=== PATIENT | male | born 1975 | race Two or more races ===

== ENCOUNTER 2023-05-15 12:35 | Observation (INO) | payer OTHER ==
[2023-05-15] MEDS ORDERED: DIPH,PERTUS(ACELL)TETVAC-LF 0.5 ML VIAL IM ONE (12:36)
[2023-05-15] MEDS ORDERED: SODIUM CHLORIDE 0.9% 500 ML 500 ML IV ONE (12:37)
[2023-05-15] MEDS ORDERED: SODIUM CHLORIDE 0.9% 1,000 ML IV ONE (12:37)
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
--- NOTE | 2023-05-15 13:12 | XR ---
Left hand HISTORY: Trauma COMPARISON: None TECHNIQUE: 3 views left hand were obtained FINDINGS: There is no fracture, dislocation, intraosseous, intra-articular or soft tissue abnormality. IMPRESSION: No significant abnormality seen.
[2023-05-15 13:34] LABS: Basophils % (A) 0 %; Eosinophils # (A) 0.1 k/uL (0-0.7); Eosinophils % (A) 1 %; HCT 42.9 % (39.0-53.0); HGB 14.4 gm/dL (13.0-17.5); Lymphocytes # (A) 1.1 k/uL (1.0-4.8); Lymphocytes % (A) 9 %; MCH 32.8 pg (25.0-35.0); MCHC 33.5 g/dL (31.0-37.0); MCV 97.9 fL (80.0-100.0); Mean Platelet Volume 8.1; Monocytes # (A) 0.6 k/uL (0-1.0); Monocytes % (A) 5 %; Neutrophils # (A) 9.3 k/uL (1.3-7.7); Neutrophils % (A) 83 %; Platelet Count 213 k/uL (150-450); RBC 4.38 m/uL (4.30-5.90); RDW 14.5 % (11.5-15.5); WBC 11.1 k/uL (3.8-10.6)
[2023-05-15 14:08] LABS: ALT 65 U/L (4-49); AST 400 U/L (17-59); African American GFR (CKD) >90 (>60 ml/min/1.73 sqM); Albumin 4.4 g/dL (3.5-5.0); Alkaline Phosphatase 77 U/L (38-126); Anion Gap 13 mmol/L; Blood Urea Nitrogen 14 mg/dL (9-20); Carbon Dioxide 26 mmol/L (22-30); Chloride 103 mmol/L (98-107); Glucose 83 mg/dL (74-99); Magnesium 1.9 mg/dL (1.6-2.3); Non-African American GFR(CKD) >90 (>60 ml/min/1.73 sqM); Potassium 4.4 mmol/L (3.5-5.1); Sodium 142 mmol/L (137-145); Total Bilirubin 0.5 mg/dL (0.2-1.3); Total Protein 6.9 g/dL (6.3-8.2)
[2023-05-15 14:18] LABS: Alcohol 354 mg/dL
[2023-05-15] MEDS ORDERED: THIAMINE 100 MG/ML 2 ML VIAL IM STA (14:38)
[2023-05-15] MEDS ORDERED: LORazepam 2 MG/ML INJ IV PRN ×3 (14:38)
[2023-05-15] MEDS ORDERED: LORazepam 0.5 MG TAB PO PRN (14:38)
[2023-05-15] MEDS: SODIUM CHLORIDE 0.9% 1,000 ML IV ONE ×2 (14:45→22:08)
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
[2023-05-16 02:24] LABS: Hepatitis A Antibody IgM Nonreactive; Hepatitis B Core IgM Nonreactive; Hepatitis B Surface Antigen Nonreactive; Hepatitis C IgG Antibody Nonreactive
[2023-05-16 08:00] LABS: Basophils % (A) 0 %; Eosinophils % (A) 0 %; HCT 39.8 % (39.0-53.0); HGB 13.3 gm/dL (13.0-17.5); Lymphocytes # (A) 0.7 k/uL (1.0-4.8); Lymphocytes % (A) 9 %; MCH 32.9 pg (25.0-35.0); MCHC 33.3 g/dL (31.0-37.0); Mean Platelet Volume 8.1; Monocytes # (A) 0.4 k/uL (0-1.0); Monocytes % (A) 5 %; Neutrophils # (A) 6.9 k/uL (1.3-7.7); Neutrophils % (A) 84 %; Platelet Count 169 k/uL (150-450); RBC 4.02 m/uL (4.30-5.90); WBC 8.2 k/uL (3.8-10.6)
[2023-05-16 08:13] VITALS: BP 177/92; PULSE 68; RESP 16; TEMP 98.7
[2023-05-16] MEDS ORDERED: THIAMINE 100 MG TAB PO SCH (09:00)
[2023-05-16] MEDS ORDERED: ENOXAPARIN 40 MG/0.4 ML SYRINGE SQ SCH (09:00)
--- NOTE | 2023-05-16 11:12 | P.DS ---
Providers Date of admission: 05/15/23 14:38 Expected date of discharge: 05/16/23 Attending physician: Héctor Diaz MD Primary care physician: Stated None Hospital Course: Discharge Diagnosis: Acute alcohol intoxication Impending alcohol withdrawal Alcohol dependence Transaminitis Leukocytosis Nicotine dependence Homelessness Hospital Course: 48-year-old male with history of alcohol dependence, nicotine dependence presen ting with acute alcohol intoxication. In the ED, temperature was 97.8, pulse 77, respiratory rate 18, blood pressure 140/99, saturating at 93% on room air. Head x-ray does not show any abnormalities. WBC 11.1, creatinine 0.66, AST 400, ALT 65, alcohol level 354. Started on IV fluids in the ED. patient feels better at the time of discharge. Would consider outpatient rehab. Patient seen and examined at bedside. Vital signs reviewed and stable. General: nontoxic, no distress, appears at stated age Derm: warm, dry Head: atraumatic, normocephalic, symmetric Eyes: EOMI, no lid lag, anicteric sclera Mouth: no lip lesion, mucus membranes moist Cardiovascular: S1S2 reg, no murmur Lungs: CTA bilateral, no rhonchi, no rales , no accessory muscle use Abdominal: soft, nontender to palpation, no guarding, no appreciable organomegaly Ext: no gross muscle atrophy, no edema, no contractures Neuro: CN II-XI grossly intact, no focal neuro deficits Psych: Alert, oriented, appropriate affect A total of 33 minutes of time were spent preparing this complex discharge summary. Patient was discharged on 05/16/23 at 10:31. Patient Condition at Discharge: Stable Plan - Discharge Summary Discharge Rx Participant: Yes New Discharge Prescriptions: New Thiamine [Vitamin B-1] 100 mg PO DAILY #60 tab Discharge Medication List Thiamine [Vitamin B-1] 100 mg PO DAILY #60 tab 05/16/23 [Rx] Follow up Appointment(s)/Referral(s): None,Stated [Primary Care Provider] - 1-2 days Patient Instructions/Handouts: Alcohol Intoxication (DC), Abuse of Alcohol (DC), Alcohol Use Disorder (DC) Activity/Diet/Wound Care/Special Instructions: Please see a PCP. Discharge/Stand Alone Forms: AA Meetings [facility] - [facility], AA Meetings [facility], [facility], Outpatient Counseling, Inp Substance Abuse Facilities, Area PCPs Discharge Disposition: HOME SELF-CARE
== END 2023-05-16 13:55 | disposition home or self-care (01) ==
LOC: EC 12:35 → 6NMEDSUR 14:38 → 4SSUR 14:53
PROVIDERS: ADMIT Student in an Organized Health Care Education/Training Program; ATTEND Student in an Organized Health Care Education/Training Program
DX: F10.229 Alcohol dependence with intoxication, unspecified (principal); S01.511A Laceration without foreign body of lip, initial encounter; S60.222A Contusion of left hand, initial encounter; I48.91 Unspecified atrial fibrillation; F17.210 Nicotine dependence, cigarettes, uncomplicated; Z59.00 Homelessness unspecified; Y90.8 Blood alcohol level of 240 mg/100 ml or more; R74.01 Elevation of levels of liver transaminase levels; D72.829 Elevated white blood cell count, unspecified; Z71.6 Tobacco abuse counseling; Z98.890 Other specified postprocedural states; Y04.0XXA Assault by unarmed brawl or fight, initial encounter
CPT/HCPCS: 96372 ×2; 90471; 96360; 96361; 99285; 36415; 80053; 80074; 83735; 85025 ×2; 80320; 73130; 90715; G0378 ×2; J3411; J1650

== ENCOUNTER 2023-05-17 03:17 | Observation (INO) | payer OTHER ==
[2023-05-17] MEDS ORDERED: LORazepam 1 MG TAB PO STA (04:43)
[2023-05-17 05:02] LABS: Basophils % (A) 1 %; Eosinophils # (A) 0.1 k/uL (0-0.7); Eosinophils % (A) 1 %; HGB 13.9 gm/dL (13.0-17.5); Lymphocytes # (A) 0.9 k/uL (1.0-4.8); Lymphocytes % (A) 11 %; MCH 34.4 pg (25.0-35.0); MCHC 34.7 g/dL (31.0-37.0); MCV 99.1 fL (80.0-100.0); Mean Platelet Volume 8.4; Monocytes # (A) 0.5 k/uL (0-1.0); Monocytes % (A) 6 %; Neutrophils # (A) 6.4 k/uL (1.3-7.7); Neutrophils % (A) 81 %; Platelet Count 158 k/uL (150-450); RBC 4.04 m/uL (4.30-5.90)
[2023-05-17 05:13] LABS: ALT 60 U/L (4-49); AST 191 U/L (17-59); African American GFR (CKD) >90 (>60 ml/min/1.73 sqM); Albumin 4.1 g/dL (3.5-5.0); Alkaline Phosphatase 62 U/L (38-126); Amylase 62 U/L (30-110); Anion Gap 9 mmol/L; Blood Urea Nitrogen 13 mg/dL (9-20); Calcium 9.4 mg/dL (8.4-10.2); Carbon Dioxide 28 mmol/L (22-30); Chloride 97 mmol/L (98-107); Glucose 114 mg/dL (74-99); Lipase 84 U/L (23-300); Magnesium 1.8 mg/dL (1.6-2.3); Non-African American GFR(CKD) >90 (>60 ml/min/1.73 sqM); Potassium 3.3 mmol/L (3.5-5.1); Sodium 134 mmol/L (137-145); Total Bilirubin 1.4 mg/dL (0.2-1.3); Total Protein 6.6 g/dL (6.3-8.2)
[2023-05-17 05:16] LABS: INR 0.9 (<1.2); Partial Thromboplastin Time 25.1 sec (22.0-30.0); Prothrombin Time 10.5 sec (10.0-12.5)
--- NOTE | 2023-05-17 06:19 | ED ---
General Adult HPI - General Chief complaint: Alcohol Stated complaint: Chest pain Time Seen by Provider: 05/17/23 04:07 Source: patient Mode of arrival: ambulatory Limitations: no limitations - History of Present Illness Initial comments: This patient is 48-year-old man presenting to have evaluation for chest pain that come on approximate 6 hours previously. He indicates the left substernal. He states it is cramping. He has not noted worsening or relieving factors. No accompanying symptoms. Onset/Timin -: hour(s) Location: chest Radiation: non-radiation Quality: other (Cramping) Consistency: constant Improves with: none Worsens with: none Associated Symptoms: denies other symptoms Treatments Prior to Arrival: none - Related Data Previous Rx's Medication Instructions Recorded Thiamine [Vitamin B-1] 100 mg PO DAILY #60 tab 05/16/23 Allergies Allergy/AdvReac Type Severity Reaction Status Date / Time No Known Allergies Allergy Verified 05/15/23 14:12 Review of Systems ROS Statement: Those systems with pertinent positive or pertinent negative responses have been documented in the HPI. ROS Other: All systems not noted in ROS Statement are negative. Constitutional: Denies: fever, chills Respiratory: Denies: cough, dyspnea Cardiovascular: Reports: chest pain. Denies: palpitations, orthopnea, edema, syncope Gastrointestinal: Denies: abdominal pain, nausea, vomiting Genitourinary: Denies: dysuria, hematuria Musculoskeletal: Denies: back pain Skin: Denies: rash Neurological: Denies: headache, weakness Past Medical History Past Medical History: Atrial Fibrillation History of Any Multi-Drug Resistant Organisms: None Reported Past Surgical History: Hernia Repair Past Anesthesia/Blood Transfusion Reactions: No Reported Reaction Past Psychological History: No Psychological Hx Reported Smoking Status: Current every day smoker Past Alcohol Use History: Daily Past Drug Use History: None Reported - Past Family History Father Family Medical History: Diabetes Mellitus Additional Family Medical History / Comment(s): of a heart of attack General Exam Limitations: no limitations General appearance: alert, in no apparent distress Head exam: Present: atraumatic, normocephalic Eye exam: Present: normal appearance. Absent: scleral icterus, conjunctival injection Neck exam: Present: normal inspection Respiratory exam: Present: wheezes (Mild expiratory wheeze). Absent: respiratory distress, rales, rhonchi, stridor, accessory muscle use Cardiovascular Exam: Present: regular rate, normal rhythm, normal heart sounds. Absent: systolic murmur, diastolic murmur, rubs, gallop GI/Abdominal exam: Present: soft. Absent: distended, tenderness, guarding, rebound, rigid, mass Extremities exam: Present: normal inspection, normal capillary refill. Absent: pedal edema, calf tenderness Back exam: Present: normal inspection. Absent: CVA tenderness (R), CVA tenderness (L) Neurological exam: Present: alert Skin exam: Present: warm, dry, intact, normal color. Absent: rash Course Vital Signs 05/17/23 05/17/23 05/17/23 03:19 03:48 04:00 Temperature 98.7 F Pulse Rate 58 L 57 L 64 Respiratory 16 18 16 Rate Blood Pressure 149/93 143/94 O2 Sat by Pulse 96 99 98 Oximetry 05/17/23 05/17/23 05:00 06:00 Temperature Pulse Rate 77 57 L Respiratory 14 14 Rate Blood Pressure 138/86 O2 Sat by Pulse 98 99 Oximetry EKG Findings - EKG Results: EKG: sinus rhythm (With sinus arrhythmia), normal axis EKG shows: bradycardia (Rate 57 bpm) - Blocks, [place], Hypertrophy, ST Abn: AV and intraventricular conduction: intraventricular conduction delay Medical Decision Making - Lab Data Result diagrams: 05/17/23 04:49 05/17/23 04:49 Lab Results 05/17/23 05/17/23 05/17/23 Range/Units 04:49 04:49 04:49 WBC 8.0 (3.8-10.6) k/uL RBC 4.04 L (4.30-5.90) m/uL Hgb 13.9 (13.0-17.5) gm/dL Hct 40.0 (39.0-53.0) % MCV 99.1 (80.0-100.0) fL MCH 34.4 (25.0-35.0) pg MCHC 34.7 (31.0-37.0) g/dL RDW 14.0 (11.5-15.5) % Plt Count 158 (150-450) k/uL MPV 8.4 Neutrophils % 81 % Lymphocytes % 11 % Monocytes % 6 % Eosinophils % 1 % Basophils % 1 % Neutrophils # 6.4 (1.3-7.7) k/uL Lymphocytes # 0.9 L (1.0-4.8) k/uL Monocytes # 0.5 (0-1.0) k/uL Eosinophils # 0.1 (0-0.7) k/uL Basophils # 0.0 (0-0.2) k/uL PT 10.5 (10.0-12.5) sec INR 0.9 (<1.2) APTT 25.1 (22.0-30.0) sec Sodium 134 L (137-145) mmol/L Potassium 3.3 L (3.5-5.1) mmol/L Chloride 97 L (98-107) mmol/L Carbon Dioxide 28 (22-30) mmol/L Anion Gap 9 mmol/L BUN 13 (9-20) mg/dL Creatinine 0.61 L (0.66-1.25) mg/dL Est GFR (CKD-EPI)AfAm >90 (>60 ml/min/1.73 sqM) Est GFR (CKD-EPI)NonAf >90 (>60 ml/min/1.73 sqM) Glucose 114 H (74-99) mg/dL Calcium 9.4 (8.4-10.2) mg/dL Magnesium 1.8 (1.6-2.3) mg/dL Total Bilirubin 1.4 H (0.2-1.3) mg/dL AST 191 H (17-59) U/L ALT 60 H (4-49) U/L Alkaline Phosphatase 62 (38-126) U/L Troponin I (0.000-0.034) ng/mL Total Protein 6.6 (6.3-8.2) g/dL Albumin 4.1 (3.5-5.0) g/dL Amylase 62 (30-110) U/L Lipase 84 (23-300) U/L 05/17/23 Range/Units 04:49 WBC (3.8-10.6) k/uL RBC (4.30-5.90) m/uL Hgb (13.0-17.5) gm/dL Hct (39.0-53.0) % MCV (80.0-100.0) fL MCH (25.0-35.0) pg MCHC (31.0-37.0) g/dL RDW (11.5-15.5) % Plt Count (150-450) k/uL MPV Neutrophils % % Lymphocytes % % Monocytes % % Eosinophils % % Basophils % % Neutrophils # (1.3-7.7) k/uL Lymphocytes # (1.0-4.8) k/uL Monocytes # (0-1.0) k/uL Eosinophils # (0-0.7) k/uL Basophils # (0-0.2) k/uL PT (10.0-12.5) sec INR (<1.2) APTT (22.0-30.0) sec Sodium (137-145) mmol/L Potassium (3.5-5.1) mmol/L Chloride (98-107) mmol/L Carbon Dioxide (22-30) mmol/L Anion Gap mmol/L BUN (9-20) mg/dL Creatinine (0.66-1.25) mg/dL Est GFR (CKD-EPI)AfAm (>60 ml/min/1.73 sqM) Est GFR (CKD-EPI)NonAf (>60 ml/min/1.73 sqM) Glucose (74-99) mg/dL Calcium (8.4-10.2) mg/dL Magnesium (1.6-2.3) mg/dL Total Bilirubin (0.2-1.3) mg/dL AST (17-59) U/L ALT (4-49) U/L Alkaline Phosphatase (38-126) U/L Troponin I <0.012 (0.000-0.034) ng/mL Total Protein (6.3-8.2) g/dL Albumin (3.5-5.0) g/dL Amylase (30-110) U/L Lipase (23-300) U/L Disposition Referrals: None,Stated [Primary Care Provider] - 1-2 days
[2023-05-17] MEDS ORDERED: NITROGLYCERIN SL TABS 0.4 MG TAB SUBLINGUAL PRN (06:28)
[2023-05-17] MEDS ORDERED: LORazepam 2 MG/ML INJ IV PRN ×3 (06:38)
[2023-05-17] MEDS ORDERED: chlordiazePOXIDE 25 MG CAP PO PRN (06:38)
--- NOTE | 2023-05-17 06:47 | XR ---
EXAMINATION TYPE: XR chest 1V portable DATE OF EXAM: 05/17/2023 5:01 AM COMPARISON: Chest radiographs from 04/18/2023 TECHNIQUE: XR chest 1V portable Portable AP radiograph of the chest. CLINICAL INDICATION:Male, 48 years old with history of chest pain; FINDINGS: Lungs/Pleura: There is no evidence of pleural effusion, focal consolidation, or pneumothorax. Pulmonary vascularity: Unremarkable. Heart/mediastinum: Cardiomediastinal silhouette is unremarkable. Musculoskeletal: No acute osseous pathology. IMPRESSION: No acute cardiopulmonary disease/process.
--- NOTE | 2023-05-17 10:45 | CONS ---
CONSULTATION HISTORY OF PRESENT ILLNESS: Anil is a 48-year-old gentleman with no significant past medical history, who presented to hospital complaining of chest pain. He describes it as a sharp precordial chest pain without definite radiation to neck, arm, or back. 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 He has had 2 sets of troponins that are both within normal limits. He had an EKG that revealed sinus bradycardia without significant ST-T wave changes. At the time of my evaluation, he is chest pain-free, hemodynamically stable, and in no apparent distress. There is no prior history of coronary artery disease or congestive heart failure. PAST MEDICAL HISTORY: Unremarkable. MEDICATIONS: None. ALLERGIES: None. FAMILY HISTORY: Negative for premature coronary artery disease. SOCIAL HISTORY: Significant for smoking and EtOH abuse. There is no history of drug abuse. PHYSICAL EXAMINATION: GENERAL: The patient is comfortable at rest. VITAL SIGNS: Stable. NECK: There is no jugular venous distention. Carotid upstroke is normal. There is no bruit. CHEST: Reveals good air entry bilaterally. HEART: Reveals first and second heart sounds. No gallop. No murmur. No rub. ABDOMEN: Soft and nontender. EXTREMITIES: Did not reveal any edema. Peripheral pulses are felt. LABORATORY DATA: Show a hemoglobin of 13.9, platelet count is 158. Creatinine is 0.6. Troponin is normal. ASSESSMENT: 1. Atypical chest pain. 2. EtOH abuse with possible alcohol withdrawal. PLAN: I will obtain a 2D echo on him tomorrow to assess his LV function and wall motion and schedule him for a dobutamine stress echo. Obviously, stress test will not be done if the patient goes through alcohol withdrawal. MMODL / IJN: [id number] /
[2023-05-17] MEDS ORDERED: POTASSIUM CHLORIDE ER 20 MEQ TAB.ER PO STA (11:01)
--- NOTE | 2023-05-17 11:04 | P.HPIM ---
History of Present Illness H&P Date: 05/17/23 Patient is a 48-year-old male with history of alcohol dependence, nicotine dependence, homelessness presenting with chest pain. Patient was recently admitted for alcohol intoxication, discharged yesterday. He claims that this morning he came back to the hospital because he was having left-sided chest pain nonradiating, not associated with any nausea, vomiting, diaphoresis, shortness of breath, palpitations. He denies having any abdominal pain. He denies any urinary or bowel complaints. He denies drinking any more alcohol. In the ED, temperature was 98.7, pulse 58, blood pressure 149/93, respiratory rate 16, saturating at 96% on room air. WBC 8, potassium 3.3, creatinine 0.61, total bilirubin 1.4, elevated AST and ALT, troponin negative and 0.023. Serum alcohol negative. EKG independently interpreted shows nonspecific ST-T wave changes in inferior leads. Chest x-ray shows no acute process. Patient admitted for observation for chest pain and impending alcohol withdrawal. Cardiology consulted Pertinent positives and negatives as discussed in HPI, a complete review of systems was performed and all other systems are negative. Patient seen and examined at bedside. Vital signs reviewed General: nontoxic, no distress, appears at stated age Derm: warm, dry Head: atraumatic, normocephalic, symmetric Eyes: EOMI, no lid lag, anicteric sclera, pupils equal round reactive to light ENT: Nose and ears atraumatic Neck: No thyromegaly, supple Mouth: no lip lesion, mucus membranes moist Cardiovascular: S1S2 reg, no murmur, no edema Lungs: clear to auscultation bilateral, no rhonchi, no rales, no wheeze, no accessory muscle use Abdominal: soft, nontender to palpation, no guarding, no appreciable organomegaly Ext: no gross muscle atrophy, muscle strength muscle strength 5 out of 5 in all 4 extremities, no contractures Neuro: CN II-XII grossly intact Psych: Alert, oriented, appropriate affect Assessment/Plan: Impending alcohol withdrawal Alcohol dependence Nicotine dependence Hypokalemia Transaminitis Hyperbilirubinemia Chest pain, rule out ACS -On oral thiamine -IV Ativan as needed based on CIWA score -40 mEq oral potassium daily -Repeat CMP tomorrow -Counseled regarding smoking cessation -Acute hepatitis panel yesterday was negative, right upper quadrant ultrasound ordered -Continue aspirin 81 mg daily -Cardiology note reviewed, pending stress test and echocardiogram -Continue telemetry, trend troponin The patient is admitted with an anticipated less than 2 midnight stay as observation status for evaluation of chest pain. Surrogate decision-maker: Sibling CODE STATUS: Full code DVT prophylaxis: Subcu heparin Anticipated discharge date: Pending clinical course Anticipated discharge place: Pending clinical course A total of 55 minutes was spent on the care of this complex patient more than 50% of the time was spent in counseling and care coordination. Past Medical History Past Medical History: Atrial Fibrillation History of Any Multi-Drug Resistant Organisms: None Reported Past Surgical History: Hernia Repair Past Anesthesia/Blood Transfusion Reactions: No Reported Reaction Past Psychological History: No Psychological Hx Reported Smoking Status: Current every day smoker Past Alcohol Use History: Daily Additional Past Alcohol Use History / Comment(s): Start smoking at the age of 14. Drinks a pint to 1/5 a day Past Drug Use History: None Reported - Past Family History Father Family Medical History: Diabetes Mellitus Additional Family Medical History / Comment(s): of a heart of attack Medications and Allergies Home Medications Medication Instructions Recorded Confirmed Type Thiamine [Vitamin B-1] 100 mg PO DAILY #60 tab 05/16/23 Rx Allergies Allergy/AdvReac Type Severity Reaction Status Date / Time No Known Allergies Allergy Verified 05/15/23 14:12 Physical Exam Vitals: Vital Signs Temp Pulse Pulse Resp BP BP Pulse Ox 05/17/23 08:00 98.2 F 80 18 130/74 97 05/17/23 06:28 97 05/17/23 06:00 57 L 14 138/86 99 05/17/23 05:00 77 14 98 05/17/23 04:00 64 16 143/94 98 05/17/23 03:48 57 L 18 99 05/17/23 03:19 98.7 F 58 L 16 149/93 96 Intake and Output 05/16/23 05/17/23 05/17/23 22:59 06:59 14:59 Intake Total 120 Balance 120 Intake: Oral 120 Other: # Voids 0 # Bowel Movements 0 Weight 56.699 kg Results CBC & Chem 7: 05/17/23 04:49 05/17/23 04:49 Labs: Abnormal Lab Results - Last 24 Hours (Table) 05/17/23 05/17/23 Range/Units 04:49 04:49 RBC 4.04 L (4.30-5.90) m/uL Lymphocytes # 0.9 L (1.0-4.8) k/uL Sodium 134 L (137-145) mmol/L Potassium 3.3 L (3.5-5.1) mmol/L Chloride 97 L (98-107) mmol/L Creatinine 0.61 L (0.66-1.25) mg/dL Glucose 114 H (74-99) mg/dL Total Bilirubin 1.4 H (0.2-1.3) mg/dL AST 191 H (17-59) U/L ALT 60 H (4-49) U/L Thrombosis Risk Factor Assmnt - Choose All That Apply Each Factor Represents 1 point: Age 41-60 years Thrombosis Risk Factor Assessment Total Risk Factor Score: 1 Thrombosis Risk Factor Assessment Level: Low Risk
--- NOTE | 2023-05-17 12:23 | US ---
EXAMINATION TYPE: US abdomen limited DATE OF EXAM: 05/17/2023 COMPARISON: NONE CLINICAL INDICATION: Male, 48 years old with history of RUQ; ETOH abuse TECHNIQUE: Multiple sonographic images of the right upper quadrant are obtained. FINDINGS: EXAM MEASUREMENTS: Liver Length: 15.9 cm Gallbladder Wall: 0.3 cm CBD: 0.3 cm Right Kidney: 11.1 x 4.5 x 6.3 cm Pancreas: wnl, tail obscured by overlying bowel gas Liver: Left lobe appeared enlarged Gallbladder: Somewhat contracted, possible small polyps anterior wall Evidence for sonographic Bustillos's sign: No CBD: wnl Right Kidney: wnl IMPRESSION: 1. No evidence for acute process 2. Contracted gallbladder with possible polyp versus adherent gallstone. 3.
[2023-05-17] MEDS: HEPARIN SODIUM,PORCINE 5,000 UNIT/ML 1 ML VIAL SQ SCH ×2 (17:19→23:49)
[2023-05-18] MEDS ORDERED: DOBUTamine DRIP for NUC MED 500 MG in DEXTROSE/WATER 1 250ML.BAG IV PRN (07:00)
[2023-05-18] MEDS ORDERED: ASPIRIN 325 MG TAB PO SCH (09:00)
[2023-05-18] MEDS: HEPARIN SODIUM,PORCINE 5,000 UNIT/ML 1 ML VIAL SQ SCH ×3 (09:13→23:38)
[2023-05-18] MEDS: ASPIRIN 81 MG PO SCH (09:13)
[2023-05-18] MEDS: THIAMINE 100 MG TAB PO SCH (09:13)
[2023-05-18 10:51] LABS: Basophils % (A) 0 %; Eosinophils # (A) 0.2 k/uL (0-0.7); Eosinophils % (A) 2 %; HCT 43.7 % (39.0-53.0); HGB 14.1 gm/dL (13.0-17.5); Lymphocytes % (A) 14 %; MCH 32.6 pg (25.0-35.0); MCHC 32.4 g/dL (31.0-37.0); MCV 100.8 fL (80.0-100.0); Macrocytosis Slight; Mean Platelet Volume 8.3; Monocytes # (A) 0.5 k/uL (0-1.0); Monocytes % (A) 7 %; Neutrophils # (A) 5.7 k/uL (1.3-7.7); Neutrophils % (A) 75 %; Platelet Count 174 k/uL (150-450); RBC 4.33 m/uL (4.30-5.90); RDW 13.7 % (11.5-15.5); WBC 7.6 k/uL (3.8-10.6)
[2023-05-18 11:03] VITALS: BMI 20.7
[2023-05-18 11:08] LABS: ALT 42 U/L (4-49); AST 64 U/L (17-59); African American GFR (CKD) >90 (>60 ml/min/1.73 sqM); Albumin 3.9 g/dL (3.5-5.0); Alkaline Phosphatase 63 U/L (38-126); Anion Gap 9 mmol/L; Blood Urea Nitrogen 17 mg/dL (9-20); Calcium 9.5 mg/dL (8.4-10.2); Carbon Dioxide 28 mmol/L (22-30); Chloride 100 mmol/L (98-107); Glucose 150 mg/dL (74-99); Magnesium 1.7 mg/dL (1.6-2.3); Non-African American GFR(CKD) >90 (>60 ml/min/1.73 sqM); Potassium 4.3 mmol/L (3.5-5.1); Sodium 137 mmol/L (137-145); Total Protein 6.6 g/dL (6.3-8.2)
--- NOTE | 2023-05-18 11:55 | P.PN ---
Subjective HISTORY OF PRESENT ILLNESS: This is a 48-year-old male who was admitted to the hospital secondary to chest pain. Patient has a history of alcohol abuse. Patient examined this morning at the bedside. Patient reports he has been having some chest pain on and off since been admitted to the hospital. At the time of examination, he denies any chest pain or pressure. He denies any shortness of breath. Vital signs are stable. It is noted that the patient had an echocardiogram performed last month revealing ejection fraction 45-50% with hypokinesis of inferior and inferior septal wall. Akinesis of basal inferior wall. PHYSICAL EXAM: VITAL SIGNS: Reviewed. GENERAL: Well-developed in no acute distress. NECK: Supple. No JVD or thyromegaly LUNGS: Respirations even and unlabored. Lungs essentially clear to auscultation bilaterally. HEART: Regular rate and rhythm. S1 and S2 heard. EXTREMITIES: Normal range of motion. No clubbing or cyanosis. Peripheral pulses intact. No lower extremity edema ASSESSMENT: Chest pain, troponins negative 3 Alcohol abuse Mild cardiomyopathy with wall motion abnormalities, ischemic versus nonischemic Questionable history of atrial fibrillation Nicotine dependence Elevated LFTs, improved PLAN: Continue current cardiac medications Add atorvastatin 40 mg at night Cancel dobutamine stress test scheduled for today Repeat echocardiogram. If wall motion abnormalities persist, patient will undergo cardiac catheterization tomorrow with Dr. Murray Further recommendations pending patient's course Nurse practitioner note has been reviewed by physician. Signing provider agrees with the documented findings, assessment, and plan of care. Objective - Vital Signs Vital signs: Vital Signs Temp 98.1 F 05/18/23 08:00 Pulse 85 05/18/23 08:00 Resp 18 05/18/23 08:00 BP 131/89 05/18/23 08:00 Pulse Ox 98 05/18/23 08:00 FiO2 Intake & Output 05/17/23 05/18/23 05/18/23 18:59 06:59 18:59 Intake Total 480 118 Balance 480 118 Weight 56.699 kg Intake: Oral 480 118 Other: # Voids 0 2 # Bowel Movements 0 0 - Labs CBC & Chem 7: 05/18/23 10:20 05/18/23 10:20 Labs: Abnormal Lab Results - Last 24 Hours (Table) 05/18/23 05/18/23 Range/Units 10:20 10:20 MCV 100.8 H (80.0-100.0) fL Glucose 150 H (74-99) mg/dL AST 64 H (17-59) U/L
--- NOTE | 2023-05-18 12:04 | P.PN ---
Subjective Progress Note Date: 05/18/23 Hospital Course: 48-year-old male with history of alcohol dependence, nicotine dependence, homelessness presenting with chest pain. In the ED, temperature was 98.7, pulse 58, blood pressure 149/93, respiratory rate 16, saturating at 96% on room air. WBC 8, potassium 3.3, creatinine 0.61, total bilirubin 1.4, elevated AST and ALT, troponin negative and 0.023. Serum alcohol negative. EKG independently interpreted shows nonspecific ST-T wave changes in inferior leads. Chest x-ray shows no acute process. Patient admitted for observation for chest pain and impending alcohol withdrawal. Cardiology consulted. Pending echocardiogram, may need cardiac cath. Subjective: Seen and examined at bedside. No acute events overnight. Denies any chest pain. Pertinent positives and negatives as discussed above, a complete review of systems was performed and all other systems are negative. Vitals Signs Reviewed. General: nontoxic, no distress, appears at stated age Derm: warm, dry Head: atraumatic, normocephalic, symmetric Eyes: EOMI, no lid lag, anicteric sclera, pupils equal round reactive to light ENT: Nose and ears atraumatic Neck: No thyromegaly, supple Mouth: no lip lesion, mucus membranes moist Cardiovascular: S1S2 reg, no murmur, no edema Lungs: clear to auscultation bilateral, no rhonchi, no rales, no wheeze, no accessory muscle use Abdominal: soft, nontender to palpation, no guarding, no appreciable organomegaly Ext: no gross muscle atrophy, muscle strength muscle strength 5 out of 5 in all 4 extremities, no contractures Neuro: CN II-XII grossly intact Psych: Alert, oriented, appropriate affect Data Reviewed Today: Pertinent Labs: WBC 7.6, hemoglobin 14.1, potassium 4.3, sodium 137, creatinine 0.74, AST 64, ALT 42, ALP 63 Imaging: Abdominal ultrasound shows left lobe liver enlarged, no evidence of acute process, CBD within normal limits, contracted gallbladder with possible polyp versus edema and gallstone. Assessment and Plan: Impending alcohol withdrawal Alcohol dependence Nicotine dependence Hypokalemia, resolved Transaminitis, resolving Hyperbilirubinemia, resolved Chest pain, ACS ruled out Mild cardiomyopathy with wall motion abnormalities, ischemic versus nonischemic -On oral thiamine -IV Ativan as needed based on CIWA score -Counseled regarding smoking cessation -Continue aspirin 81 mg daily -Also started on atorvastatin 40 mg -Cardiology note reviewed, echocardiogram and then possible catheterization -Continue telemetry DVT ppx: Heparin Code status: Full code Anticipated discharge place: pending clinical course Anticipated discharge time: pending clinical course Objective - Vital Signs Vital signs: Vital Signs Temp 98.1 F 05/18/23 08:00 Pulse 85 05/18/23 08:00 Resp 18 05/18/23 08:00 BP 131/89 05/18/23 08:00 Pulse Ox 98 05/18/23 08:00 FiO2 Intake & Output 05/17/23 05/18/23 05/18/23 18:59 06:59 18:59 Intake Total 480 118 Balance 480 118 Weight 56.699 kg Intake: Oral 480 118 Other: # Voids 0 2 # Bowel Movements 0 0 - Labs CBC & Chem 7: 05/18/23 10:20 05/18/23 10:20 Labs: Abnormal Lab Results - Last 24 Hours (Table) 05/18/23 05/18/23 Range/Units 10:20 10:20 MCV 100.8 H (80.0-100.0) fL Glucose 150 H (74-99) mg/dL AST 64 H (17-59) U/L
[2023-05-18 18:22] LABS: Chol/HDL Ratio 2.55 Ratio; LDL Cholesterol,Calculated 117.3 mg/dL (0.0-131.0)
[2023-05-18] MEDS: ATORVASTATIN 40 MG TAB PO SCH (20:51)
[2023-05-19] MEDS: THIAMINE 100 MG TAB PO SCH (06:06)
[2023-05-19] MEDS: ASPIRIN 81 MG PO SCH (06:06)
--- NOTE | 2023-05-19 06:59 | CA ---
Transthoracic Echo Report Name: Anil Zimmerman Age: 48 Gender: M : 1975 Exam Date: 05/18/2023 15:33 Exam Location: [facility] Ht (in): 65 Wt (lb): 125 Ordering Physician: Jose G Murray MD ([id number]) Attending/Referring Phys: Trevor REESE Vice President Of [employer] Martha Young [facility] Procedure CPT: Indications: CP Cardiac Hx: Technical Quality: Fair Contrast 1: Total Dose (mL): Contrast 2: Total Dose (mL): MEASUREMENTS (Male / Female) Normal Values 2D ECHO LV Diastolic Diameter PLAX 4.3 cm 4.2 - 5.9 / 3.9 - 5.3 cm LV Systolic Diameter PLAX 3.1 cm IVS Diastolic Thickness 1.0 cm 0.6 - 1.0 / 0.6 - 0.9 cm LVPW Diastolic Thickness 1.1 cm 0.6 - 1.0 / 0.6 - 0.9 cm LV Relative Wall Thickness 0.5 LV Diastolic Volume MOD BP 99.5 cm??? 67 - 155 / 56 - 104 cm??? LV Systolic Volume MOD BP 53.6 cm??? 22 - 58 / 19 - 49 cm??? LV Ejection Fraction MOD BP 46.2 % >= 55 % LV Cardiac Index MOD BP 1854.1 cm???/min???m??? LV Diastolic Volume MOD 4C 98.2 cm??? LV Systolic Volume MOD 4C 51.2 cm??? LV Ejection Fraction MOD 4C 47.9 % LV Cardiac Index MOD 4C 1895.8 cm???/min???m??? LV Diastolic Length 4C 8.1 cm LV Systolic Length 4C 6.9 cm LV Diastolic Volume MOD 2C 103.1 cm??? LV Systolic Volume MOD 2C 54.5 cm??? LV Ejection Fraction MOD 2C 47.2 % LV Cardiac Index MOD 2C 1962.4 cm???/min???m??? LV Diastolic Length 2C 8.1 cm LV Systolic Length 2C 7.2 cm FINDINGS Left Ventricle Left ventricular wall thickness at upper limits of normal. Left ventricular cavity size normal. Mildly decreased left ventricular ejection fraction. Left ventricular ejection fraction is estimated at 45-50%. Akinetic mid and basal inferior wall. Hypokinetic inferoseptum. Right Ventricle Right Atrium Left Atrium Mitral Valve Aortic Valve Tricuspid Valve Pulmonic Valve Pericardium Aorta CONCLUSIONS Normal LV size ejection fraction of about 45% with akinesia of mid inferior and inferior basal segment with hypokinesia of inferoseptal wall. Previewed by: Dr. Cally Nam MD (Electronically Signed) Final Date: 19 May 2023 06:58
[2023-05-19] MEDS: HEPARIN SODIUM,PORCINE 5,000 UNIT/ML 1 ML VIAL SQ SCH ×3 (08:34→23:46)
[2023-05-19] MEDS: carvediloL 3.125 MG TAB PO SCH ×2 (08:58→18:18)
[2023-05-19] MEDS: LOSARTAN 25 MG TAB PO SCH (08:58)
[2023-05-19] MEDS ORDERED: ALPRAZolam 0.25 MG TAB PO PRN (09:24)
[2023-05-19] MEDS ORDERED: NITROGLYCERIN SL TABS 0.4 MG TAB SUBLINGUAL PRN (09:24)
[2023-05-19] MEDS ORDERED: ALPRAZolam 0.5 MG TAB PO PRN (09:24)
--- NOTE | 2023-05-19 10:39 | P.PN ---
Subjective HISTORY OF PRESENT ILLNESS: This is a 48-year-old male who was admitted to the hospital secondary to chest pain. Patient has a history of alcohol abuse. Patient examined this morning at the bedside. Patient reports he has been having some chest pain on and off since been admitted to the hospital. At the time of examination, he denies any chest pain or pressure. He denies any shortness of breath. Vital signs are stable. It is noted that the patient had an echocardiogram performed last month revealing ejection fraction 45-50% with hypokinesis of inferior and inferior septal wall. Akinesis of basal inferior wall. 05/19/2023 Patient examined this morning at the bedside. Patient currently denies chest pain or pressure. He denies shortness of breath. Echocardiogram completed revealing ejection fraction 45-50%, hypokinesis of inferior septum. Akinesis of the mid and nasal inferior wall. Patient's blood pressure is elevated this morning with a systolic in the 150s. PHYSICAL EXAM: VITAL SIGNS: Reviewed. GENERAL: Well-developed in no acute distress. NECK: Supple. No JVD or thyromegaly LUNGS: Respirations even and unlabored. Lungs essentially clear to auscultation bilaterally. HEART: Regular rate and rhythm. S1 and S2 heard. EXTREMITIES: Normal range of motion. No clubbing or cyanosis. Peripheral pulses intact. No lower extremity edema ASSESSMENT: Chest pain, troponins negative 3 Alcohol abuse Mild cardiomyopathy with wall motion abnormalities, ischemic versus nonischemic Questionable history of atrial fibrillation Nicotine dependence Elevated LFTs, improved PLAN: Continue current cardiac medications Continue aspirin and atorvastatin Add carvedilol 3.125 mg twice a day And losartan 25 mg daily NPO at midnight Patient will undergo cardiac catheterization tomorrow 05/20/[address] Murray Further recommendations pending patient's course Nurse practitioner note has been reviewed by physician. Signing provider agrees with the documented findings, assessment, and plan of care. Objective - Vital Signs Vital signs: Vital Signs Temp 98.3 F 05/19/23 07:55 Pulse 60 05/19/23 07:55 Resp 18 05/19/23 07:55 BP 150/92 05/19/23 07:55 Pulse Ox 100 05/19/23 07:55 FiO2 Intake & Output 05/18/23 05/19/23 05/19/23 18:59 06:59 18:59 Intake Total 354 Output Total 2 Balance 354 -2 Weight 56.699 kg Intake: Oral 354 Output: Urine 2 Other: Voiding Method Toilet # Voids 1 - Labs CBC & Chem 7: 05/18/23 10:20 05/18/23 10:20 Labs: Abnormal Lab Results - Last 24 Hours (Table) 05/18/23 05/18/23 Range/Units 10:20 10:20 MCV 100.8 H (80.0-100.0) fL Glucose 150 H (74-99) mg/dL AST 64 H (17-59) U/L Cholesterol 220.00 H (0.00-200.00) mg/dL HDL Cholesterol 86.30 H (40.00-60.00) mg/dL
--- NOTE | 2023-05-19 10:57 | P.PN ---
Subjective Progress Note Date: 05/19/23 Hospital Course: 48-year-old male with history of alcohol dependence, nicotine dependence, homelessness presenting with chest pain. In the ED, temperature was 98.7, pulse 58, blood pressure 149/93, respiratory rate 16, saturating at 96% on room air. WBC 8, potassium 3.3, creatinine 0.61, total bilirubin 1.4, elevated AST and ALT, troponin negative and 0.023. Serum alcohol negative. EKG independently interpreted shows nonspecific ST-T wave changes in inferior leads. Chest x-ray shows no acute process. Patient admitted for observation for chest pain and impending alcohol withdrawal. Cardiology consulted. Echocardiogram shows LVEF of 45% with akinesia of the mid inferior and inferior basal segment with hypokinesia of inferior septal wall. Pending cardiac cath tomorrow. Subjective: Seen and examined at bedside. No acute events overnight. Occasional intermittent chest pain. Pertinent positives and negatives as discussed above, a complete review of systems was performed and all other systems are negative. Vitals Signs Reviewed. General: nontoxic, no distress, appears at stated age Derm: warm, dry Head: atraumatic, normocephalic, symmetric Eyes: EOMI, no lid lag, anicteric sclera, pupils equal round reactive to light ENT: Nose and ears atraumatic Neck: No thyromegaly, supple Mouth: no lip lesion, mucus membranes moist Cardiovascular: S1S2 reg, no murmur, no edema Lungs: clear to auscultation bilateral, no rhonchi, no rales, no wheeze, no accessory muscle use Abdominal: soft, nontender to palpation, no guarding, no appreciable organomegaly Ext: no gross muscle atrophy, muscle strength muscle strength 5 out of 5 in all 4 extremities, no contractures Neuro: CN II-XII grossly intact Psych: Alert, oriented, appropriate affect Data Reviewed Today: Pertinent Labs: No new labs Imaging: Echocardiogram shows LVEF 45% with wall motion abnormalities Assessment and Plan: Chest pain, ACS ruled out Mild cardiomyopathy with wall motion abnormalities, ischemic versus nonischemic Alcohol dependence Nicotine dependence Hypokalemia, resolved Transaminitis, resolving Hyperbilirubinemia, resolved -Cardiology note reviewed, pending cardiac cath tomorrow -Also started on carvedilol 3.125 twice a day daily, atorvastatin 40 mg daily, aspirin 81 mg daily, losartan 25 mg daily -On oral thiamine -Counseled regarding smoking cessation DVT ppx: Heparin Code status: Full code Anticipated discharge place: pending clinical course Anticipated discharge time: pending clinical course Objective - Vital Signs Vital signs: Vital Signs Temp 98.3 F 05/19/23 07:55 Pulse 60 05/19/23 07:55 Resp 18 05/19/23 07:55 BP 150/92 05/19/23 07:55 Pulse Ox 100 05/19/23 07:55 FiO2 Intake & Output 05/18/23 05/19/23 05/19/23 18:59 06:59 18:59 Intake Total 354 Output Total 2 Balance 354 -2 Weight 56.699 kg Intake: Oral 354 Output: Urine 2 Other: Voiding Method Toilet # Voids 1 - Labs CBC & Chem 7: 05/18/23 10:20 05/18/23 10:20 Labs: Abnormal Lab Results - Last 24 Hours (Table) 05/18/23 Range/Units 10:20 Glucose 150 H (74-99) mg/dL AST 64 H (17-59) U/L Cholesterol 220.00 H (0.00-200.00) mg/dL HDL Cholesterol 86.30 H (40.00-60.00) mg/dL
[2023-05-19] MEDS: ATORVASTATIN 40 MG TAB PO SCH (21:27)
[2023-05-20] MEDS: ATORVASTATIN 40 MG TAB PO SCH (04:45)
[2023-05-20] MEDS: ASPIRIN 81 MG PO SCH (04:46)
[2023-05-20] MEDS: HEPARIN SODIUM,PORCINE 5,000 UNIT/ML 1 ML VIAL SQ SCH ×2 (04:47→16:59)
[2023-05-20] MEDS: SODIUM CHLORIDE 0.9% 1,000 ML in EMPTY BAG 1 BAG IV SCH ×2 (04:54→16:59)
[2023-05-20] MEDS: LOSARTAN 25 MG TAB PO SCH (04:54)
[2023-05-20] MEDS: THIAMINE 100 MG TAB PO SCH (04:54)
[2023-05-20] MEDS ORDERED: ATORVASTATIN 80 MG TAB PO ONE (05:00)
[2023-05-20] MEDS ORDERED: ASPIRIN 325 MG TAB PO ONE (05:00)
[2023-05-20 06:08] LABS: Glucose,Whole Blood 99 mg/dL (70-110)
[2023-05-20] MEDS ORDERED: HEPARIN SODIUM,PORCINE (1 ML) 2,500 UNIT in SODIUM CHLORIDE 0.9% 250 ML IRRIGATION PRN (07:00)
[2023-05-20] MEDS ORDERED: HEPARIN SODIUM,PORCINE 10,000 UNIT in SODIUM CHLORIDE 0.9% 1,000 ML IRRIGATION PRN (07:00)
[2023-05-20 08:52] VITALS: RESP 16
[2023-05-20] MEDS: carvediloL 3.125 MG TAB PO SCH ×2 (09:21→17:00)
[2023-05-20] MEDS ORDERED: IV FLUID CONTINUATION 1,000 ML IV ONE (12:50)
[2023-05-20] MEDS ORDERED: fentaNYL (PF) 50 MCG/ML 2 ML AMP IVP ONE (13:07)
[2023-05-20] MEDS ORDERED: MIDAZOLAM 2 MG/2 ML VIAL IVP ONE (13:07)
[2023-05-20] MEDS ORDERED: LIDOCAINE 1% INJ 10MG/ML (20 ML MDV) SQ ONE (13:08)
[2023-05-20] MEDS ORDERED: VERAPAMIL 2.5 MG/ML 2 ML AMP INTRAARTER ONE (13:10)
[2023-05-20] MEDS ORDERED: HEPARIN SODIUM 1,000 UN/ML (10ML VL) IV ONE (13:13)
[2023-05-20] MEDS ORDERED: IOPAMIDOL-370 100ML BTL INJ ONE (13:36)
[2023-05-20] MEDS ORDERED: RX INFO: IV CONTRAST WAS GIVEN 1 EACH MISC MISCELLANE PRN (13:53)
[2023-05-20] MEDS ORDERED: SODIUM CHLORIDE 0.9% 1,000 ML IV SCH (14:00)
[2023-05-20 14:04] LABS: Glucose,Whole Blood 105 mg/dL (70-110)
--- NOTE | 2023-05-20 14:48 | P.DS ---
Providers Date of admission: 05/17/23 06:32 Expected date of discharge: 05/20/23 Attending physician: Cait He MD Consults: 05/17/23 06:28 Consult Physician Routine Consulting Provider: Cabrera Lane Consult Reason/Comments: chest pain Do you want consulting provider notified?: Yes Primary care physician: Stated None Hospital Course: Discharge Diagnosis: Coronary artery disease Chronically occluded RCA Mild cardiomyopathy with wall motion abnormalities Alcohol dependence Nicotine dependence Hypokalemia Transaminitis Hyperbilirubinemia Hospital Course: 48-year-old male with history of alcohol dependence, nicotine dependence, homelessness presenting with chest pain. In the ED, temperature was 98.7, pulse 58, blood pressure 149/93, respiratory rate 16, saturating at 96% on room air. WBC 8, potassium 3.3, creatinine 0.61, total bilirubin 1.4, elevated AST and ALT, troponin negative and 0.023. Serum alcohol negative. EKG independently interpreted shows nonspecific ST-T wave changes in inferior leads. Chest x-ray shows no acute process. Patient admitted for observation for chest pain and impending alcohol withdrawal. Cardiology consulted. Echocardiogram shows LVEF of 45% with akinesia of the mid inferior and inferior basal segment with hypokinesia of inferior septal wall. Cardiac cath showed chronically occluded RCA, cardiology recommending medical management. Patient seen and examined at bedside. Vital signs reviewed and stable. General: nontoxic, no distress, appears at stated age Derm: warm, dry Head: atraumatic, normocephalic, symmetric Eyes: EOMI, no lid lag, anicteric sclera Mouth: no lip lesion, mucus membranes moist Cardiovascular: S1S2 reg, no murmur Lungs: CTA bilateral, no rhonchi, no rales , no accessory muscle use Abdominal: soft, nontender to palpation, no guarding, no appreciable organomegaly Ext: no gross muscle atrophy, no edema, no contractures Neuro: CN II-XI grossly intact, no focal neuro deficits Psych: Alert, oriented, appropriate affect A total of 33 minutes of time were spent preparing this complex discharge summary. Patient was discharged on 05/20/23 at 14:45. Patient Condition at Discharge: Stable Plan - Discharge Summary New Discharge Prescriptions: New Aspirin 81 mg PO DAILY #90 tab Losartan [Cozaar] 25 mg PO DAILY #90 tab Atorvastatin [Lipitor] 40 mg PO HS #90 tab carvediloL [Coreg] 3.125 mg PO BID-W/MEALS #90 tab Continue Thiamine [Vitamin B-1] 100 mg PO DIRECTED Discharge Medication List Thiamine [Vitamin B-1] 100 mg PO DIRECTED 05/17/23 [History] Aspirin 81 mg PO DAILY #90 tab 05/20/23 [Rx] Atorvastatin [Lipitor] 40 mg PO HS #90 tab 05/20/23 [Rx] Losartan [Cozaar] 25 mg PO DAILY #90 tab 05/20/23 [Rx] carvediloL [Coreg] 3.125 mg PO BID-W/MEALS #90 tab 05/20/23 [Rx] Follow up Appointment(s)/Referral(s): None,Stated [Primary Care Provider] - 1-2 days Jose G Murray MD [STAFF PHYSICIAN] - 1 Week Patient Instructions/Handouts: Coronary Artery Disease (DC) Activity/Diet/Wound Care/Special Instructions: Please see cardiology and see a PCP as well. Discharge/Stand Alone Forms: AA Meetings [facility], Who Do I C all?, Community Resources, Outpatient Counseling, Inp Substance Abuse Facilities Discharge Disposition: HOME SELF-CARE
[2023-05-20 17:14] VITALS: TEMP 97.8
[2023-05-20 18:44] VITALS: BP 128/76; PULSE 55
--- NOTE | 2023-05-21 05:20 | P.CARDCATH ---
Date of Procedure: 05/20/23 Description of Procedure: DIAGNOSTIC CORONARY ANGIOGRAPHY and LEFT HEART CATH REPORT PROCEDURES PERFORMED: Left heart catheterization Selective coronary angiography Moderate conscious sedation 21 mins Right radial access INDICATION: New cardiomyopathy and wall motion abnormality on echocardiogram CONSENT: I have discussed the risks, benefits and alternative therapies for the above-mentioned procedure, sedation/analgesia and necessary blood product administration (if indicated, as they pertain to this patient). The patient has indicated understanding and acceptance of the risks and procedures discussed. Conscious Sedation: Patient's ECG, heart rate, blood pressure, pulse oximetry was monitored throughout the duration of procedure under my direct supervision. 2 mg Versed and 50 mg Fentanyl were used for induction of moderate conscious sedation. Total duration of moderate concious sedation 21 minutes. PROCEDURE: After explaining the risks, benefits and alternatives of the above mentioned procedures in detail to the patient, informed consent was obtained. Patient was taken to the catheterization lab, prepped and draped in usual sterile fashion using universal precuations. Barbow and ivonne test were performed to confirm adequate perfusion to fingers. Ultrasound was used to identify the radial artery. 1% lidocaine was infiltrated over the right radial artery. A 6-Setswana sheath was placed and secured in the right radial artery using modified Seldinger technique. The sheath was flushed and 5 mg verapamil was administered intra-arterially. J tipped wire was advanced under fluoroscopic guidance. Once the wire tip reached aortic root 3500 units of IV heparin was given. Over the wire JL4 diagnostic catheter was advanced. Wire was removed, catheter was flushed and manipulated under fluoroscopy to selectively engaged the left coronary ostium. Left coronary angioplasty was performed in different angiographic projections. This catheter was exchanged for a JR4 diagnostic catheter over the wire. The catheter was flushed and manipulated to cross the aortic valve. LV pressures were obtained. Pullback was performed across aortic valve and catheter was manipulated to selectively engage the right coronary ostium under fluoroscopic guidance. Right coronary angiography was performed in different angiographic projections. Catheter was removed over the wire. Radial sheath was flushed. The right radial sheath was removed and a TR band was placed with excellent patent hemostasis was achieved. The patient tolerated the procedure well. Patient was transported back to the post catheterization holding area in stable condition. Angiographic images were reviewed in detail. HEMODYNAMICS: Aortic Pressure: 150/70 mmHg. LV pressure: 152/10 mmHg. LVEDP 19 mmHg. SELECTIVE CORONARY ARTERIOGRAPHY: LEFT MAIN: The left main is a large caliber vessel which bifurcates into the LAD and circumflex. Left main appears angiographically normal. LEFT ANTERIOR DESCENDING CORONARY ARTERY: LAD is a large caliber vessel which wraps around to the apex. It appears angiographically normal. It gives rise to 3 diagonal branches which appears angiographically normal. LEFT CIRCUMFLEX CORONARY ARTERY: It is nondominant vessel. Left circumflex is a moderate caliber vessel. Mid LCx has an eccentric 40-50% stenosis. It is [id number]. It gives rise to OM branches appears angiographically normal RIGHT CORONARY ARTERY: Dominant vessel. There is 100% chronic total occlusion of proximal RCA with no distal flow. There is a medium size RV marginal branch which originates very proximally from the RCA. There are right to right and [id number] collaterals retrogradely filling PDA and RCA. IMPRESSION: 100% LOGISTICS ANALYST of proximal RCA with right to right and [id number] collaterals 40-50% mid LCx stenosis PLAN: Medical management for coronary artery disease Guideline directed medical therapy for congestive heart failure 150 cc fluids for 3 hours Discharge home in 4 hours Follow-up in the office in 1-2 weeks. Performing Physician Justin Todd MD
== END 2023-05-20 18:53 | disposition home or self-care (01) ==
LOC: EC 03:17 → 3SCARD 06:32
PROVIDERS: ADMIT Internal Medicine; ATTEND Internal Medicine
DX: I25.10 Atherosclerotic heart disease of native coronary artery without angina pectoris (principal); I25.82 Chronic total occlusion of coronary artery; I42.9 Cardiomyopathy, unspecified; E87.6 Hypokalemia; I48.91 Unspecified atrial fibrillation; R00.1 Bradycardia, unspecified; F10.20 Alcohol dependence, uncomplicated; R74.01 Elevation of levels of liver transaminase levels; E80.6 Other disorders of bilirubin metabolism; F17.200 Nicotine dependence, unspecified, uncomplicated; Z59.00 Homelessness unspecified; Z98.890 Other specified postprocedural states; Z83.3 Family history of diabetes mellitus; Z82.49 Family history of ischemic heart disease and other diseases of the circulatory system; Z71.6 Tobacco abuse counseling
CPT/HCPCS: 96372 ×4; 99285; 36415; 94760 ×2; 93005; 93308; 93458; 76937; 80061; 80053 ×2; 82150; 83690; 83735 ×2; 84484; 85025 ×2; 85610; 85730; 80320; 71045; 76705; G0378 ×4; C1769 ×2; C1894; J2250; J1644 ×5; J2001; J3010; Q9967

== ENCOUNTER 2023-05-22 11:51 | Emergency (ER) | payer OTHER ==
[2023-05-22 12:14] VITALS: RESP 18; TEMP 97.7
--- NOTE | 2023-05-22 12:35 | ED ---
Extremity Problem HPI - General Chief complaint: Extremity Problem,Nontraumatic Stated complaint: right arm pain Time Seen by Provider: 05/22/23 12:31 Source: patient Mode of arrival: ambulatory Limitations: no limitations - History of Present Illness Initial comments: Patient is a 48-year-old male presenting to the ER with chief complaint of right wrist presenting and swelling. Patient had a cath [address] Todd. Patient states this morning he woke up and there was an increase in the bruising of his right wrist. He also states that what there was some bloody drainage from the incision site. He read the instructions on his discharge paperwork from the catheterization and they told him to report to the ER if any of those symptoms occur. Patient denies any pain, chest pain, short of breath. - Related Data Home Medications Medication Instructions Recorded Confirmed Thiamine [Vitamin B-1] 100 mg PO DIRECTED 05/17/23 05/22/23 Previous Rx's Medication Instructions Recorded Aspirin 81 mg PO DAILY #90 tab 05/20/23 Atorvastatin [Lipitor] 40 mg PO HS #90 tab 05/20/23 Losartan [Cozaar] 25 mg PO DAILY #90 tab 05/20/23 carvediloL [Coreg] 3.125 mg PO BID-W/MEALS #90 tab 05/20/23 Allergies Allergy/AdvReac Type Severity Reaction Status Date / Time No Known Allergies Allergy Verified 05/22/23 14:02 Review of Systems ROS Statement: Those systems with pertinent positive or pertinent negative responses have been documented in the HPI. ROS Other: All systems not noted in ROS Statement are negative. Past Medical History Past Medical History: Atrial Fibrillation History of Any Multi-Drug Resistant Organisms: None Reported Past Surgical History: Heart Catheterization, Hernia Repair Past Anesthesia/Blood Transfusion Reactions: No Reported Reaction Past Psychological History: Anxiety Smoking Status: Former smoker Past Alcohol Use History: Daily Past Drug Use History: Marijuana - Past Family History Father Family Medical History: Diabetes Mellitus Additional Family Medical History / Comment(s): of a heart of attack General Exam - General Exam Comments Initial Comments: Visual Physical Exam Vital signs reviewed General: Well-appearing, nontoxic, no acute distress. Head: Normocephalic, atraumatic Eyes: PERRLA, EOMI ENT: Airway patent Chest: Nonlabored breathing Skin: No visual rash, normal skin tone Neuro: Alert and oriented 3 Musculoskeletal: No gross abnormalities Limitations: no limitations General appearance: alert, in no apparent distress Respiratory exam: Present: normal lung sounds bilaterally. Absent: respiratory distress, wheezes, rales, rhonchi, stridor Cardiovascular Exam: Present: regular rate, normal rhythm, normal heart sounds. Absent: systolic murmur, diastolic murmur, rubs, gallop, clicks Extremities exam: Present: other (Ecchymosis noted on the right forearm. There is mild tenderness to palpation. 2+ radial pulse. There is no drainage from incision site at this time) Neurological exam: Present: alert, oriented X3, CN II-XII intact Psychiatric exam: Present: normal affect, normal mood Course Vital Signs 05/22/23 11:52 Temperature 97.7 F Pulse Rate 64 Respiratory 18 Rate Blood Pressure 158/92 O2 Sat by Pulse 100 Oximetry Medical Decision Making - Medical Decision Making I performed the quick note portion of the exam. Electronically signed by Katya Eisenberg PA-C Was pt. sent in by a medical professional or institution ([employer], MACHINE FARMWORKER, urgent care, hospital, or detention...) When possible be specific @ -No Did you speak to anyone other than the patient for history (EMS, parent, family, police, friend...)? What history was obtained from this source @ -No Did you review nursing and triage notes (agree or disagree)? Why? @ -I reviewed and agree with nursing and triage notes Were old charts reviewed (outside hosp., previous admission, EMS record, old EKG, old radiological studies, urgent care reports/EKG's, detention records)? Report findings @ -No old charts were reviewed Differential Diagnosis (chest pain, altered mental status, abdominal pain women, abdominal pain men, vaginal bleeding, weakness, fever, dyspnea, syncope, headache, dizziness, GI bleed, back pain, seizure, CVA, palpatations, mental health, musculoskeletal)? @ -Differential Musculoskeletal: Muscular strain, contusion, ligament sprain, fracture, arthritis, septic arthritis, bursitis, cellulitis, muscle spasm, nerve compression, DVT, arterial occlusion, herpes zoster, electrolyte abnormality, tumor.... This is not meant to be in all inclusive list EKG interpreted by me (3pts min.). @ -None X-rays interpreted by me (1pt min.). @ -None done CT interpreted by me (1pt min.). @ -None done U/S interpreted by me (1pt. min.). @ -Ultrasound of upper extremity pseudo right was negative for evidence of a pseudoaneurysm. What testing was considered but not performed or refused? (CT, X-rays, U/S, labs)? Why? @ -None What meds were considered but not given or refused? Why? @ -None Did you discuss the management of the patient with other professionals (professionals i.e. , PA, MACHINE FARMWORKER, lab, RT, psych nurse, social service worker, territory manager, teacher, reserve officer, manager case)? Give summary @ -No Was smoking cessation discussed for >3mins.? @ -No Was critical care preformed (if so, how long)? @ -No Were there social determinants of health that impacted care today? How? ( Homelessness, low income, unemployed, alcoholism, drug addiction, transportation, low edu. Level, literacy, decrease access to med. care, [facility], rehab)? @ -No Was there de-escalation of care discussed even if they declined (Discuss DNR or withdrawal of care, Hospice)? DNR status @ -No What co-morbidities impacted this encounter? (DM, HTN, Smoking, COPD, CAD, Cancer, CVA, ARF, Chemo, Hep., AIDS, mental health diagnosis, sleep apnea, morbid obesity)? @ -CAD Was patient admitted / discharged? Hospital course, mention meds given and route, prescriptions, significant lab abnormalities, going to OR and other pertinent info. @ -Discharge. Upon examination there was ecchymosis noted to the right forearm. Mild tenderness to incision site. Ultrasound of upper extremity pseudo right was negative for evidence of a psuedoaneurysm. I discussed with the patient the red flag symptoms to return to the ER. I instructed patient to follow-up with retrofit installer as scheduled. Patient will be discharged home in stable condition with follow-up to PCP and retrofit installer. Patient expressed understanding and agreement with Plan. Undiagnosed new problem with uncertain prognosis? @ -No Drug Therapy requiring intensive monitoring for toxicity (Heparin, Nitro, Insulin, Cardizem)? @ -No Were any procedures done? @ -No Diagnosis/symptom? @ -Postprocedural ecchymosis of right wrist Acute, or Chronic, or Acute on Chronic? @ -Acute Uncomplicated (without systemic symptoms) or Complicated (systemic symptoms)? @ -Uncomplicated Side effects of treatment? @ -No Exacerbation, Progression, or Severe Exacerbation? @ -No Poses a threat to life or bodily function? How? (Chest pain, USA, CT, pneumonia, PE, COPD, DKA, ARF, appy, cholecystitis, CVA, Diverticulitis, Homicidal, Suicidal, threat to staff... and all critical care pts) @ -No - Radiology Data Radiology results: report reviewed, image reviewed Disposition Clinical Impression: Ecchymosis of wrist Disposition: HOME SELF-CARE Condition: Stable Additional Instructions: Please return to the Emergency Department if symptoms worsen or any other concerns. Please follow-up with your retrofit installer as scheduled. Is patient prescribed a controlled substance at d/c from ED?: No Referrals: None,Stated [Primary Care Provider] - 1-2 days Time of Disposition: 14:27
--- NOTE | 2023-05-22 13:35 | US ---
EXAMINATION TYPE: US upper ext pseudo RT DATE OF EXAM: 05/22/2023 COMPARISON: NONE CLINICAL INDICATION: Male, 48 years old with history of pain; right radial heart cath 2 days prior, b ruising with mild pain today TECHNIQUE: Right wrist soft tissue scan FINDINGS: Normal appearing right radial artery and surrounding soft tissue. No sonographic evidence for pseudoaneurysm. IMPRESSION: No sonographic evidence for pseudoaneurysm.
[2023-05-22 14:54] VITALS: BP 142/91; PULSE 54
== END 2023-05-22 14:38 | disposition home or self-care (01) ==
LOC: EC 11:51
DX: S60.211A Contusion of right wrist, initial encounter (principal); I48.91 Unspecified atrial fibrillation; Z87.891 Personal history of nicotine dependence; F12.90 Cannabis use, unspecified, uncomplicated; Z86.59 Personal history of other mental and behavioral disorders; Z79.899 Other long term (current) drug therapy; X58.XXXA Exposure to other specified factors, initial encounter
CPT/HCPCS: 99283

== ENCOUNTER 2023-05-24 08:05 | Inpatient (IN) | payer SELFPAY ==
[2023-05-24] MEDS ORDERED: ASPIRIN 81 MG PO STA (08:20)
[2023-05-24] MEDS ORDERED: NITROGLYCERIN SL TABS 0.4 MG TAB SUBLINGUAL STA ×3 (08:20)
--- NOTE | 2023-05-24 08:24 | ED ---
General Adult HPI - General Chief complaint: Chest Pain Stated complaint: chest pains Time Seen by Provider: 05/24/23 08:11 Source: patient, RN notes reviewed Mode of arrival: ambulatory Limitations: no limitations - History of Present Illness Initial comments: Patient is a pleasant 48-year-old male presenting to the emergency department with concerns for chest discomfort. Onset of symptoms was around 2 or 3 in the morning. Discomfort feels like tightness. Discomfort is rated 5/10. Patient states he was a little bit sweaty earlier. Patient does have history of similar symptoms previously and has been worked up with cardiology with this. Patient recently had a heart catheterization and was told medical management. Symptoms are similar to symptoms he had prior to this. Patient does have history of atrial fibrillation. Patient is unclear if he is on blood thinners. Patient is having some right lateral knee pain. - Related Data Home Medications Medication Instructions Recorded Confirmed Thiamine [Vitamin B-1] 100 mg PO DIRECTED 05/17/23 05/22/23 Previous Rx's Medication Instructions Recorded Aspirin 81 mg PO DAILY #90 tab 05/20/23 Atorvastatin [Lipitor] 40 mg PO HS #90 tab 05/20/23 Losartan [Cozaar] 25 mg PO DAILY #90 tab 05/20/23 carvediloL [Coreg] 3.125 mg PO BID-W/MEALS #90 tab 05/20/23 Allergies Allergy/AdvReac Type Severity Reaction Status Date / Time No Known Allergies Allergy Verified 05/22/23 14:02 Review of Systems ROS Statement: Those systems with pertinent positive or pertinent negative responses have been documented in the HPI. ROS Other: All systems not noted in ROS Statement are negative. Constitutional: Denies: fever Eyes: Denies: eye pain ENT: Denies: ear pain Respiratory: Denies: cough, dyspnea Cardiovascular: Reports: as per HPI, chest pain Endocrine: Denies: fatigue Gastrointestinal: Denies: abdominal pain Genitourinary: Denies: urgency Musculoskeletal: Denies: back pain Past Medical History Past Medical History: Atrial Fibrillation History of Any Multi-Drug Resistant Organisms: None Reported Past Surgical History: Heart Catheterization, Hernia Repair Past Anesthesia/Blood Transfusion Reactions: No Reported Reaction Past Psychological History: Anxiety Smoking Status: Former smoker Past Alcohol Use History: Daily Past Drug Use History: Marijuana - Past Family History Father Family Medical History: Diabetes Mellitus Additional Family Medical History / Comment(s): of a heart of attack General Exam Limitations: no limitations General appearance: alert, in no apparent distress Head exam: Present: normocephalic Eye exam: Present: normal appearance Neck exam: Present: normal inspection Respiratory exam: Present: normal lung sounds bilaterally. Absent: chest wall tenderness Cardiovascular Exam: Present: regular rate, normal rhythm Expanded Peripheral pulses: 2+: Radial (R), Radial (L), Posterior Tibialis (R), Posterior Tibialis (L), Dorsalis Pedis (R), Dorsalis Pedis (L) GI/Abdominal exam: Present: soft. Absent: tenderness Extremities exam: Present: normal inspection, calf tenderness (Minimal right- sided). Absent: pedal edema Neurological exam: Present: alert Psychiatric exam: Present: normal affect, normal mood Skin exam: Present: normal color Course Vital Signs 05/24/23 05/24/23 05/24/23 08:07 08:32 09:07 Temperature 98.2 F Pulse Rate 63 57 L 80 Respiratory 18 20 16 Rate Blood Pressure 142/92 127/80 105/60 O2 Sat by Pulse 98 97 98 Oximetry 05/24/23 10:00 Temperature Pulse Rate 60 Respiratory 16 Rate Blood Pressure 110/60 O2 Sat by Pulse 98 Oximetry EKG Findings - EKG Results: EKG: interpreted by ERMD (Small inferior Q waves with nonspecific ST-T.), sinus rhythm, normal axis EKG shows: bradycardia Medical Decision Making - Medical Decision Making Was pt. sent in by a medical professional or institution (, PA, .NET PROGRAMMER, urgent care, hospital, or detention...) When possible be specific @ -No Did you speak to anyone other than the patient for history (EMS, parent, family, police, friend...)? What history was obtained from this source @ -No Did you review nursing and triage notes (agree or disagree)? Why? @ -I reviewed and agree with nursing and triage notes Were old charts reviewed (outside hosp., previous admission, EMS record, old EKG, old radiological studies, urgent care reports/EKG's, detention records)? Report findings @ -Previous EKG and discharge summaries reviewed Differential Diagnosis (chest pain, altered mental status, abdominal pain women, abdominal pain men, vaginal bleeding, weakness, fever, dyspnea, syncope, headache, dizziness, GI bleed, back pain, seizure, CVA, palpatations, mental health, musculoskeletal)? @ -Differential Chest Pain: Stable Angina, Unstable Angina, STEMI, NSTEMI Aortic Dissection, Pneumothorax, Musculoskeletal, Esophageal Spasm GERD, Cholecystitis, Pancreatitis, Zoster, this is not meant to be an all-inclusive list. EKG interpreted by me (3pts min.). @ -As above X-rays interpreted by me (1pt min.). @ -Chest x-ray shows no acute process CT interpreted by me (1pt min.). @ -None done U/S interpreted by me (1pt. min.). @ -Report reviewed What testing was considered but not performed or refused? (CT, X-rays, U/S, labs)? Why? @ -None What meds were considered but not given or refused? Why? @ -None Did you discuss the management of the patient with other professionals (professionals i.e. , PA, .NET PROGRAMMER, lab, RT, psych nurse, social economist, appraiser land, te acher, medical information officer, assistant case manager)? Give summary @ -Case was discussed with Dr. Norris. He recommends second troponin, if negative patient can be discharged and does recommend starting Imdur. Repeat troponin came back elevated and case was again discussed with Dr. Norris who does agree with admission and heparin. He will consult. Was smoking cessation discussed for >3mins.? @ -No Was critical care preformed (if so, how long)? @ -32 minutes of critical care time Were there social determinants of health that impacted care today? How? (Homelessness, low income, unemployed, alcoholism, drug addiction, transportation, low edu. Level, literacy, decrease access to med. care, group home, rehab)? @ -No Was there de-escalation of care discussed even if they declined (Discuss DNR or withdrawal of care, Hospice)? DNR status @ -No What co-morbidities impacted this encounter? (DM, HTN, Smoking, COPD, CAD, Cance r, CVA, ARF, Chemo, Hep., AIDS, mental health diagnosis, sleep apnea, morbid obesity)? @ -None Was patient admitted / discharged? Hospital course, mention meds given and route, prescriptions, significant lab abnormalities, going to OR and other pertinent info. @ -No improvement with nitroglycerin. Patient reevaluated and updated. Patient will be admitted with cardiac consult. Heparin will be started. Patient updated. Undiagnosed new problem with uncertain prognosis? @ -No Drug Therapy requiring intensive monitoring for toxicity (Heparin, Nitro, Insulin, Cardizem)? @ -Patient will be placed on heparin drip Were any procedures done? @ -No Diagnosis/symptom? @ -Unstable angina Acute, or Chronic, or Acute on Chronic? @ -Acute on chronic Uncomplicated (without systemic symptoms) or Complicated (systemic symptoms)? @ -default Side effects of treatment? @ -No Exacerbation, Progression, or Severe Exacerbation? @ -No Poses a threat to life or bodily function? How? (Chest pain, USA, [place], pneumonia, PE, COPD, DKA, ARF, appy, cholecystitis, CVA, Diverticulitis, Homicidal, Suicidal, threat to staff... and all critical care pts) @ -No - Lab Data Result diagrams: 05/24/23 08:20 05/24/23 08:20 Lab Results 05/24/23 05/24/23 05/24/23 Range/Units 08:20 08:20 08:20 WBC 6.4 (3.8-10.6) k/uL RBC 4.04 L (4.30-5.90) m/uL Hgb 13.4 (13.0-17.5) gm/dL Hct 40.8 (39.0-53.0) % MCV 100.9 H (80.0-100.0) fL MCH 33.2 (25.0-35.0) pg MCHC 32.9 (31.0-37.0) g/dL RDW 14.0 (11.5-15.5) % Plt Count 297 (150-450) k/uL MPV 7.9 Neutrophils % 69 % Lymphocytes % 16 % Monocytes % 10 % Eosinophils % 2 % Basophils % 0 % Neutrophils # 4.4 (1.3-7.7) k/uL Lymphocytes # 1.0 (1.0-4.8) k/uL Monocytes # 0.6 (0-1.0) k/uL Eosinophils # 0.2 (0-0.7) k/uL Basophils # 0.0 (0-0.2) k/uL Macrocytosis Slight PT 10.1 (10.0-12.5) sec INR 0.9 (<1.2) APTT 24.7 (22.0-30.0) sec D-Dimer 0.59 (<0.60) mg/L FEU Sodium 138 (137-145) mmol/L Potassium 3.8 (3.5-5.1) mmol/L Chloride 104 (98-107) mmol/L Carbon Dioxide 26 (22-30) mmol/L Anion Gap 8 mmol/L BUN 14 (9-20) mg/dL Creatinine 0.62 L (0.66-1.25) mg/dL Est GFR (CKD-EPI)AfAm >90 (>60 ml/min/1.73 sqM) Est GFR (CKD-EPI)NonAf >90 (>60 ml/min/1.73 sqM) Glucose 100 H (74-99) mg/dL Calcium 9.4 (8.4-10.2) mg/dL Magnesium 1.7 (1.6-2.3) mg/dL Total Bilirubin 0.5 (0.2-1.3) mg/dL AST 23 (17-59) U/L ALT 24 (4-49) U/L Alkaline Phosphatase 63 (38-126) U/L Troponin I (0.000-0.034) ng/mL Total Protein 7.0 (6.3-8.2) g/dL Albumin 4.2 (3.5-5.0) g/dL Amylase (30-110) U/L Lipase (23-300) U/L 05/24/23 05/24/23 05/24/23 Range/Units 08:20 09:44 10:32 WBC (3.8-10.6) k/uL RBC (4.30-5.90) m/uL Hgb (13.0-17.5) gm/dL Hct (39.0-53.0) % MCV (80.0-100.0) fL MCH (25.0-35.0) pg MCHC (31.0-37.0) g/dL RDW (11.5-15.5) % Plt Count (150-450) k/uL MPV Neutrophils % % Lymphocytes % % Monocytes % % Eosinophils % % Basophils % % Neutrophils # (1.3-7.7) k/uL Lymphocytes # (1.0-4.8) k/uL Monocytes # (0-1.0) k/uL Eosinophils # (0-0.7) k/uL Basophils # (0-0.2) k/uL Macrocytosis PT (10.0-12.5) sec INR (<1.2) APTT (22.0-30.0) sec D-Dimer (<0.60) mg/L FEU Sodium (137-145) mmol/L Potassium (3.5-5.1) mmol/L Chloride (98-107) mmol/L Carbon Dioxide (22-30) mmol/L Anion Gap mmol/L BUN (9-20) mg/dL Creatinine (0.66-1.25) mg/dL Est GFR (CKD-EPI)AfAm (>60 ml/min/1.73 sqM) Est GFR (CKD-EPI)NonAf (>60 ml/min/1.73 sqM) Glucose (74-99) mg/dL Calcium (8.4-10.2) mg/dL Magnesium (1.6-2.3) mg/dL Total Bilirubin (0.2-1.3) mg/dL AST (17-59) U/L ALT (4-49) U/L Alkaline Phosphatase (38-126) U/L Troponin I <0.012 0.059 H* (0.000-0.034) ng/mL Total Protein (6.3-8.2) g/dL Albumin (3.5-5.0) g/dL Amylase 72 (30-110) U/L Lipase 100 (23-300) U/L Critical Care Time Critical Care Time: Yes Total Critical Care Time: 32 Disposition Clinical Impression: Unstable angina pectoris Disposition: ADMITTED IP TO THIS HOSP Is patient prescribed a controlled substance at d/c from ED?: No Referrals: None,Stated [Primary Care Provider] - 1-2 days Time of Disposition: 11:31
[2023-05-24 08:39] LABS: Basophils % (A) 0 %; Eosinophils # (A) 0.2 k/uL (0-0.7); Eosinophils % (A) 2 %; HCT 40.8 % (39.0-53.0); HGB 13.4 gm/dL (13.0-17.5); Lymphocytes % (A) 16 %; MCH 33.2 pg (25.0-35.0); MCHC 32.9 g/dL (31.0-37.0); MCV 100.9 fL (80.0-100.0); Macrocytosis Slight; Mean Platelet Volume 7.9; Monocytes # (A) 0.6 k/uL (0-1.0); Monocytes % (A) 10 %; Neutrophils # (A) 4.4 k/uL (1.3-7.7); Neutrophils % (A) 69 %; Platelet Count 297 k/uL (150-450); RBC 4.04 m/uL (4.30-5.90); WBC 6.4 k/uL (3.8-10.6)
--- NOTE | 2023-05-24 08:51 | XR ---
EXAMINATION TYPE: XR chest 2V DATE OF EXAM: 05/24/2023 8:46 AM CLINICAL INDICATION:Male, 48 years old with history of Chest Pain; H COMPARISON: Chest radiographs from TECHNIQUE: XR chest 2V Frontal and lateral views of the chest. FINDINGS: Lungs/Pleura: There is no evidence of pleural effusion, focal consolidation, or pneumothorax. Pulmonary vascularity: Unremarkable. Heart/mediastinum: Cardiomediastinal silhouette is unremarkable. Musculoskeletal: No acute osseous pathology. IMPRESSION: No acute cardiopulmonary disease/process.
[2023-05-24 08:55] LABS: ALT 24 U/L (4-49); AST 23 U/L (17-59); African American GFR (CKD) >90 (>60 ml/min/1.73 sqM); Albumin 4.2 g/dL (3.5-5.0); Alkaline Phosphatase 63 U/L (38-126); Anion Gap 8 mmol/L; Blood Urea Nitrogen 14 mg/dL (9-20); Calcium 9.4 mg/dL (8.4-10.2); Carbon Dioxide 26 mmol/L (22-30); Chloride 104 mmol/L (98-107); Glucose 100 mg/dL (74-99); INR 0.9 (<1.2); Magnesium 1.7 mg/dL (1.6-2.3); Non-African American GFR(CKD) >90 (>60 ml/min/1.73 sqM); Partial Thromboplastin Time 24.7 sec (22.0-30.0); Potassium 3.8 mmol/L (3.5-5.1); Prothrombin Time 10.1 sec (10.0-12.5); Sodium 138 mmol/L (137-145); Total Bilirubin 0.5 mg/dL (0.2-1.3)
[2023-05-24] MEDS ORDERED: MORPHINE SULFATE 4 MG/ML SYRINGE IVP STA (09:02)
--- NOTE | 2023-05-24 09:28 | US ---
EXAMINATION TYPE: US venous doppler duplex LE RT DATE OF EXAM: 05/24/2023 9:20 AM COMPARISON: NONE CLINICAL INDICATION: Male, 48 years old with history of pain; Patient has pain in right lower leg and states very mild swelling, no h/o dvt SIDE PERFORMED: Right TECHNIQUE: The lower extremity deep venous system is examined utilizing real time linear array sonog leonard with graded compression, doppler sonography and color-flow sonography. VESSELS IMAGED: Common Femoral Vein Deep Femoral Vein Greater Saphenous Vein * Femoral Vein Popliteal Vein Small Saphenous Vein * Proximal Calf Veins (* superficial vessels) Right Leg: Grayscale, color doppler, spectral doppler imaging performed of the deep veins of the low er extremities. There is normal flow, compressibility, vascular waveforms. IMPRESSION: No evidence of deep venous thrombosis.
[2023-05-24 09:53] LABS: Amylase 72 U/L (30-110); Lipase 100 U/L (23-300)
[2023-05-24] MEDS ORDERED: HEPARIN SODIUM 1,000 UN/ML (10ML VL) IV ONE (11:31)
[2023-05-24] MEDS ORDERED: NITROGLYCERIN SL TABS 0.4 MG TAB SUBLINGUAL PRN (11:31)
[2023-05-24] MEDS ORDERED: THIAMINE 100 MG TAB PO SCH (11:45)
[2023-05-24] MEDS ORDERED: NITROGLYCERIN OINT 1 INCH/GM PACKET TOPICAL SCH (12:00)
[2023-05-24] MEDS: HEPARIN SOD,PORK IN 0.45% NACL 25,000 UNIT in 0.45% NACL 1 250ML.BAG IV SCH (12:23)
[2023-05-24] MEDS ORDERED: ONDANSETRON 4 MG/2 ML VIAL IVP PRN (14:10)
[2023-05-24] MEDS ORDERED: ACETAMINOPHEN TAB 325 MG TAB PO PRN (14:10)
[2023-05-24] MEDS ORDERED: CALCIUM CARBONATE 500 MG CHEWABLE PO PRN (14:10)
[2023-05-24] MEDS ORDERED: NALOXONE 0.4 MG/ML 1 ML VIAL IVP PRN (14:10)
--- NOTE | 2023-05-24 14:19 | P.HPIM ---
History of Present Illness H&P Date: 05/24/23 Chief Complaint: Chest pain * 48-year-old gentleman with past medical history significant for coronary artery disease, chronically occluded RCA, ischemic cardiomyopathy, alcohol use, nicotine dependence, presents to the emergency department with complains of chest pain. Patient said symptom onset was early in the morning around 3 AM. Patient complained of chest tightness, with intensity about 5 x 10. This was associated with diaphoresis. 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 Review of discharge paperwork shows patient was on aspirin, Cozaar, Lipitor, Coreg,. Patient was scheduled to follow-up with cardiology in one week post discharge patient will discharge to [facility] home * Workup in ER include basic metabolic panel which showed essentially normal liver profile, normal renal profile. Initial troponin less than 0.012, follow-up troponin 0.059 * EKG obtained in ER showed sinus bradycardia with ST segment changes in inferior leads and anterolateral lead Q waves noted in inferior leads as well * During my encounter patient does endorse to continuous smoking however he did cut down, patient also mentioned he did not have a drink in 2 weeks previously he was a heavy drinker REVIEW OF SYSTEMS: Chest pain, diaphoresis CONSTITUTIONAL: No fever, no malaise, no fatigue. HEENT: No recent visual problems or hearing problems. Denied any sore throat. CARDIOVASCULAR: No chest pain, orthopnea, PND, no palpitations, no syncope. PULMONARY: No shortness of breath, no cough, no hemoptysis. GASTROINTESTINAL: No diarrhea, no nausea, no vomiting, no abdominal pain. NEUROLOGICAL: No headaches, no weakness, no numbness. HEMATOLOGICAL: Denies any bleeding or petechiae. GENITOURINARY: Denies any burning micturition, frequency, or urgency. MUSCULOSKELETAL/RHEUMATOLOGICAL: Denies any joint pain, swelling, or any muscle pain. ENDOCRINE: Denies any polyuria or polydipsia. PHYSICAL EXAMINATION: GENERAL: The patient is alert and oriented x3, not in any acute distress. Well developed, well nourished. HEENT: Pupils are round and equally reacting to light. EOMI. CARDIOVASCULAR: S1 and S2 present. No murmurs, rubs, or gallops. PULMONARY: Chest is clear to auscultation, no wheezing or crackles. ABDOMEN: Soft, nontender, nondistended, normoactive bowel sounds. No palpable organomegaly. MUSCULOSKELETAL: No joint swelling or deformity. EXTREMITIES: No cyanosis, clubbing, or pedal edema. NEUROLOGICAL: Gross neurological examination did not reveal any focal deficits. SKIN: No rashes. Past Medical History Past Medical History: Atrial Fibrillation History of Any Multi-Drug Resistant Organisms: None Reported Past Surgical History: Heart Catheterization, Hernia Repair Past Anesthesia/Blood Transfusion Reactions: No Reported Reaction Past Psychological History: Anxiety Smoking Status: Former smoker Past Alcohol Use History: Daily Past Drug Use History: Marijuana - Past Family History Father Family Medical History: Diabetes Mellitus Additional Family Medical History / Comment(s): of a heart of attack Medications and Allergies Home Medications Medication Instructions Recorded Confirmed Type Thiamine [Vitamin B-1] 100 mg PO DIRECTED 05/17/23 05/24/23 History Aspirin 81 mg PO DAILY #90 tab 05/20/23 05/24/23 Rx Atorvastatin [Lipitor] 40 mg PO HS #90 tab 05/20/23 05/24/23 Rx Losartan [Cozaar] 25 mg PO DAILY #90 tab 05/20/23 05/24/23 Rx carvediloL [Coreg] 3.125 mg PO BID-W/MEALS #90 tab 05/20/23 05/24/23 Rx Allergies Allergy/AdvReac Type Severity Reaction Status Date / Time No Known Allergies Allergy Verified 05/24/23 11:56 Physical Exam Vitals: Vital Signs Temp Pulse Resp BP Pulse Ox 05/24/23 12:25 71 20 111/76 100 05/24/23 10:00 60 16 110/60 98 05/24/23 09:07 80 16 105/60 98 05/24/23 08:32 57 L 20 127/80 97 05/24/23 08:07 98.2 F 63 18 142/92 98 Intake and Output 05/23/23 05/24/23 05/24/23 22:59 06:59 14:59 Other: Weight 54.431 kg Results CBC & Chem 7: 05/24/23 08:20 05/24/23 08:20 Labs: Abnormal Lab Results - Last 24 Hours (Table) 05/24/23 05/24/23 05/24/23 Range/Units 08:20 08:20 10:32 RBC 4.04 L (4.30-5.90) m/uL MCV 100.9 H (80.0-100.0) fL Creatinine 0.62 L (0.66-1.25) mg/dL Glucose 100 H (74-99) mg/dL Troponin I 0.059 H* (0.000-0.034) ng/mL Assessment and Plan Assessment: Assessment and plan Coronary artery disease with non-ST elevated [place] Chronically occluded RCA Recurrent angina Hypertension Hyperlipidemia Alcohol/tobacco use * In regards to chest pain with elevated troponin, continue patient on IV heparin/continue aspirin and sublingual nitroglycerin for chest pain/IV heparin at this medication continue to monitor CBC monitor for bleeding * In regards to chronically occluded RCA optimize medical management continue aspirin, Lipitor, Coreg, Cozaar * In regards to hypertension continue Coreg, Cozaar * In regards to hyperlipidemia continue Lipitor * CODE STATUS is full code Time with Patient: Greater than 30
[2023-05-24] MEDS: ISOSORBIDE MONONITRATE ER 60 MG TAB.ER.24H PO SCH (15:18)
[2023-05-24] MEDS: carvediloL 3.125 MG TAB PO SCH (16:42)
[2023-05-24] MEDS ORDERED: ATORVASTATIN 40 MG TAB PO SCH (21:00)
[2023-05-25 04:54] LABS: HCT 35.6 % (39.0-53.0); HGB 11.8 gm/dL (13.0-17.5); MCH 33.5 pg (25.0-35.0); MCHC 33.3 g/dL (31.0-37.0); MCV 100.6 fL (80.0-100.0); Macrocytosis Slight; Mean Platelet Volume 8.3; Platelet Count 264 k/uL (150-450); RBC 3.54 m/uL (4.30-5.90); RDW 14.1 % (11.5-15.5); WBC 6.1 k/uL (3.8-10.6)
[2023-05-25 05:15] LABS: African American GFR (CKD) >90 (>60 ml/min/1.73 sqM); Anion Gap 5 mmol/L; Blood Urea Nitrogen 17 mg/dL (9-20); Calcium 8.8 mg/dL (8.4-10.2); Carbon Dioxide 24 mmol/L (22-30); Chloride 104 mmol/L (98-107); Glucose 94 mg/dL (74-99); Non-African American GFR(CKD) >90 (>60 ml/min/1.73 sqM); Potassium 4.2 mmol/L (3.5-5.1); Sodium 133 mmol/L (137-145)
[2023-05-25] MEDS: carvediloL 3.125 MG TAB PO SCH (06:35)
[2023-05-25 08:56] LABS: Chol/HDL Ratio 2.77 Ratio; LDL Cholesterol,Calculated 92.2 mg/dL (0.0-131.0); VLDL Calculation 13.84 mg/dL (5.00-40.00)
[2023-05-25] MEDS ORDERED: ASPIRIN 325 MG TAB PO SCH (09:00)
[2023-05-25] MEDS: ISOSORBIDE MONONITRATE ER 60 MG TAB.ER.24H PO SCH (09:22)
[2023-05-25] MEDS: LOSARTAN 25 MG TAB PO SCH (09:22)
--- NOTE | 2023-05-25 12:16 | P.PN ---
Subjective Progress Note Date: 05/25/23 * 48-year-old gentleman with past medical history significant for coronary artery disease, chronically occluded RCA, ischemic cardiomyopathy, alcohol use, nicotine dependence, presents to the emergency department with complains of chest pain. Patient said symptom onset was early in the morning around 3 AM. Patient complained of chest tightness, with intensity about 5 x 10. This was associated with diaphoresis. 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 Review of discharge paperwork shows patient was on aspirin, Cozaar, Lipitor, Coreg,. Patient was scheduled to follow-up with cardiology in one week post discharge patient will discharge to [facility] home * Workup in ER include basic metabolic panel which showed essentially normal liver profile, normal renal profile. Initial troponin less than 0.012, follow-up troponin 0.059 * EKG obtained in ER showed sinus bradycardia with ST segment changes in inferior leads and anterolateral lead Q waves noted in inferior leads as well * During my encounter patient does endorse to continuous smoking however he did cut down, patient also mentioned he did not have a drink in 2 weeks previously he was a heavy drinker * 05/25/23: Patient seen and evaluated bedside, patient had episode of bradycardia, EKG obtained shows sinus bradycardia, patient does have intermittent chest pain, follow-up troponins normal. Continue patient on telemetry monitoring. Coreg discontinued, transitioned to metoprolol to be started from 05/26, cardiology consulted REVIEW OF SYSTEMS: Chest pain intermittent CONSTITUTIONAL: No fever, no malaise, no fatigue. HEENT: No recent visual problems or hearing problems. Denied any sore throat. CARDIOVASCULAR: No chest pain, orthopnea, PND, no palpitations, no syncope. PULMONARY: No shortness of breath, no cough, no hemoptysis. GASTROINTESTINAL: No diarrhea, no nausea, no vomiting, no abdominal pain. NEUROLOGICAL: No headaches, no weakness, no numbness. HEMATOLOGICAL: Denies any bleeding or petechiae. GENITOURINARY: Denies any burning micturition, frequency, or urgency. MUSCULOSKELETAL/RHEUMATOLOGICAL: Denies any joint pain, swelling, or any muscle pain. ENDOCRINE: Denies any polyuria or polydipsia. PHYSICAL EXAMINATION: GENERAL: The patient is alert and oriented x3, not in any acute distress. Well developed, well nourished. HEENT: Pupils are round and equally reacting to light. EOMI. CARDIOVASCULAR: S1 and S2 present. No murmurs, rubs, or gallops. PULMONARY: Chest is clear to auscultation, no wheezing or crackles. ABDOMEN: Soft, nontender, nondistended, normoactive bowel sounds. No palpable organomegaly. MUSCULOSKELETAL: No joint swelling or deformity. EXTREMITIES: No cyanosis, clubbing, or pedal edema. NEUROLOGICAL: Gross neurological examination did not reveal any focal deficits. SKIN: No rashes. Objective - Vital Signs Vital signs: Vital Signs Temp 98.7 F 05/25/23 08:00 Pulse 46 L 05/25/23 08:00 Resp 16 05/25/23 08:00 BP 119/74 05/25/23 08:00 Pulse Ox 97 05/25/23 08:18 FiO2 Intake & Output 05/24/23 05/25/23 05/25/23 18:59 06:59 18:59 Intake Total 660 362.203 Balance 660 362.203 Weight 54.431 kg Intake: Intake, IV Titration 122.203 Amount Heparin Sod,Pork in 0.45% 122.203 NaCl 25,000 unit In 0.45 % NaCl 1 250ml.bag @ 12 UNITS/KG/HR 6.532 mls/hr IV .Q24H [facility] Rx#: [id number] Oral 660 240 Other: # Voids 1 - Labs CBC & Chem 7: 05/25/23 04:29 05/25/23 04:29 Labs: Abnormal Lab Results - Last 24 Hours (Table) 05/25/23 05/25/23 05/25/23 Range/Units 04:29 04:29 04:29 RBC 3.54 L (4.30-5.90) m/uL Hgb 11.8 L (13.0-17.5) gm/dL Hct 35.6 L (39.0-53.0) % MCV 100.6 H (80.0-100.0) fL APTT 34.3 H (22.0-30.0) sec Sodium 133 L (137-145) mmol/L Creatinine 0.61 L (0.66-1.25) mg/dL 05/25/23 Range/Units 10:38 RBC (4.30-5.90) m/uL Hgb (13.0-17.5) gm/dL Hct (39.0-53.0) % MCV (80.0-100.0) fL APTT 43.5 H (22.0-30.0) sec Sodium (137-145) mmol/L Creatinine (0.66-1.25) mg/dL Assessment and Plan Assessment: Assessment and plan Coronary artery disease with non-ST elevated [place] Chronically occluded RCA Sinus Bradycardia Recurrent angina Hypertension Hyperlipidemia Alcohol/tobacco use * In regards to chest pain with elevated troponin, continue patient on IV heparin/continue aspirin and sublingual nitroglycerin for chest pain/IV heparin at this medication continue to monitor CBC monitor for bleeding * In regards to chronically occluded RCA optimize medical management continue aspirin, Lipitor,, Cozaar * In regards to sinus bradycardia Coreg discontinued, and starting on metoprolol from 05/26 with holding parameter * In regards to hypertension continue Coreg, Cozaar * In regards to hyperlipidemia continue Lipitor * CODE STATUS is full code Time with Patient: Greater than 30
[2023-05-25] MEDS: HEPARIN SOD,PORK IN 0.45% NACL 25,000 UNIT in 0.45% NACL 1 250ML.BAG IV SCH (15:22)
--- NOTE | 2023-05-25 15:52 | P.CRDCN ---
History of Present Illness Consult date: 05/25/23 Reason for Consult (text): UA History of present illness: History of present illness: This is a 48 year old male with past medical history of ischemic cardiomyopathy, alcohol abuse, tobacco use and dependence. Patient was recently hospitalized earlier this month for chest pain and was found to have new diagnosis of cardiomyopathy with EF of 45%. We have been asked to evaluate the patient for unstable angina. The patient presented to the hospital with left-sided chest pressure/squeezing sensation. He states that it is going on all the time and not just with activity or with rest. He did have Nitropaste and nitro sublingual he is not sure if these helped. He does complain of headache. He has subsequently been started on Imdur and we will remove the Nitropaste. Patient has been started on a heparin drip. Patient also complained of swelling in his right leg which is not evident at the time of evaluation. Patient states that he has been taking all of his medications as directed since he left the hospital. EKG sinus rhythm Chest x-ray: No acute process Venous Doppler of the right lower extremity negative for DVT Troponin 0.059, 0.0122. Hemoglobin 11.8. Sodium 133, potassium 4.2, creatinine 0.61. Triglycerides 69, cholesterol 166, LDL 92, HDL 60. Liver function tests are normal. Lipase 100. Home cardiac medications: Aspirin 81 mg daily, atorvastatin 40 mg at bedtime, Coreg 3.125 mg twice daily, losartan 25 mg daily. Recent cardiac catheterization performed on 05/20/[address] Todd revealed 100% CT over the proximal RCA with right to right and [id number] collaterals, 40- 50% mid circumflex stenosis. Echocardiogram performed 05/17/2023 reveals normal LV size and ejection fraction of 45% with akinesia of the mid inferior and inferior basal segment with hypokinesia of the inferior septal wall. Review Of Systems: At the time of my evaluation: Constitutional: No fever, no chills. No weakness, fatigue or lethargy. EENT: No headache. No dizziness. Lungs: No shortness of breath, cough, no sputum production. No wheezing. Cardiovascular: + chest pain, no lower extremity edema. No palpitations. No paroxysmal nocturnal dyspnea. No orthopnea. No lightheadedness or dizziness. No syncopal episodes. Abdominal: No abdominal pain. No nausea, vomiting. Musculoskeletal: No myalgias. No muscle weakness, no frequent falls. Integumentary: No wounds. No rash. No unusual bruising. Neurologic: No aphasia. No facial droop. No change in mentation. Physical examination: Gen: This is a 48 year old thin cachectic appearing male resting in bed and appears to be in no acute distress. VS: reviewed HEENT: Head is atraumatic, normocephalic. Pupils equal, round. Sclerae is anicteric. NECK: Supple. No JVD. . LUNGS: Clear to auscultation. No wheezes or rhonchi. No intercostal retractions. HEART: Regular rate and rhythm. no murmur. ABDOMEN: Soft No tenderness. EXTREMITIES: No pedal edema. No calf tenderness. NEUROLOGICAL: Patient is awake, alert and oriented x3. Assessment: Chest pain, possible unstable angina Known coronary artery disease on medical management Ischemic cardiomyopathy Alcohol abuse Tobacco use and dependence Plan: Continue patient's home cardiac medications Discontinue Nitropaste Continue Imdur Add Ranexa 500 mg every 12 hours Discontinue heparin drip Ambulate patient, if no worsening symptoms, patient is cleared from cardiology for discharge home later today. Thank you kindly for this consultation. Nurse practitioner note has been reviewed, I agree with documented findings and plan of care. Patient was seen and examined. Past Medical History Past Medical History: Atrial Fibrillation History of Any Multi-Drug Resistant Organisms: None Reported Past Surgical History: Heart Catheterization, Hernia Repair Past Anesthesia/Blood Transfusion Reactions: No Reported Reaction Past Psychological History: Anxiety Smoking Status: Current some day smoker Past Alcohol Use History: None Reported Additional Past Alcohol Use History / Comment(s): pt. was a heavy drinker, states he has not drink in a month Past Drug Use History: Marijuana - Past Family History Father Family Medical History: Diabetes Mellitus Additional Family Medical History / Comment(s): of a heart of attack Medications and Allergies Home Medications Medication Instructions Recorded Confirmed Type Thiamine [Vitamin B-1] 100 mg PO DIRECTED 05/17/23 05/24/23 History Aspirin 81 mg PO DAILY #90 tab 05/20/23 05/24/23 Rx Atorvastatin [Lipitor] 40 mg PO HS #90 tab 05/20/23 05/24/23 Rx Losartan [Cozaar] 25 mg PO DAILY #90 tab 05/20/23 05/24/23 Rx carvediloL [Coreg] 3.125 mg PO BID-W/MEALS #90 tab 05/20/23 05/24/23 Rx Allergies Allergy/AdvReac Type Severity Reaction Status Date / Time No Known Allergies Allergy Verified 05/24/23 11:56 Physical Exam Vitals: Vital Signs Temp Pulse Pulse Resp BP BP Pulse Ox 05/25/23 08:18 97 05/25/23 08:00 98.7 F 46 L 16 119/74 97 05/25/23 04:00 57 L 18 133/82 98 05/25/23 00:00 56 L 18 101/54 98 05/24/23 20:00 97.8 F 70 18 134/68 98 05/24/23 15:45 98.5 F 54 L 18 115/79 100 05/24/23 14:43 62 18 107/67 98 05/24/23 14:00 98.1 F 50 L 14 108/73 98 05/24/23 13:00 55 L 14 120/80 99 Intake and Output 05/24/23 05/25/23 05/25/23 22:59 06:59 14:59 Intake Total 965.32 56.883 Balance 965.32 56.883 Intake: Intake, IV Titration 65.32 56.883 Amount Heparin Sod,Pork in 0.45% 65.32 56.883 NaCl 25,000 unit In 0.45 % NaCl 1 250ml.bag @ 12 UNITS/KG/HR 6.532 mls/hr IV .Q24H [facility] Rx#: [id number] Oral 900 Other: # Voids 1 Weight 54.431 kg Results 05/25/23 04:29 05/25/23 04:29 Cardiac Enzymes 05/24/23 05/24/23 Range/Units 14:04 19:12 Troponin I <0.012 <0.012 (0.000-0.034) ng/mL Coagulation 05/24/23 05/25/23 05/25/23 Range/Units 19:12 04:29 10:38 APTT 28.9 34.3 H 43.5 H (22.0-30.0) sec Lipids 05/25/23 Range/Units 04:29 Triglycerides 69.20 (0.00-149.00) mg/dL Cholesterol 166.00 (0.00-200.00) mg/dL HDL Cholesterol 60.00 (40.00-60.00) mg/dL Cholesterol/HDL Ratio 2.77 Ratio CBC 05/25/23 Range/Units 04:29 WBC 6.1 (3.8-10.6) k/uL RBC 3.54 L (4.30-5.90) m/uL Hgb 11.8 L (13.0-17.5) gm/dL Hct 35.6 L (39.0-53.0) % Plt Count 264 (150-450) k/uL Comprehensive Metabolic Panel 05/25/23 Range/Units 04:29 Sodium 133 L (137-145) mmol/L Potassium 4.2 (3.5-5.1) mmol/L Chloride 104 (98-107) mmol/L Carbon Dioxide 24 (22-30) mmol/L BUN 17 (9-20) mg/dL Creatinine 0.61 L (0.66-1.25) mg/dL Glucose 94 (74-99) mg/dL Calcium 8.8 (8.4-10.2) mg/dL Current Medications Generic Name Dose Route Start Last Admin Trade Name Freq PRN Reason Stop Dose Admin Acetaminophen 650 mg 05/24/23 14:10 05/24/23 20:16 Acetaminophen Tab 325 Mg Tab PO 650 mg Q6HR PRN Administration Mild Pain or Fever > 100.5 Hydrocodone Bitart/Acetaminophen 1 each 05/24/23 14:10 Hydrocodone/Apap 5-325mg 1 Each Tab PO Q4HR PRN Moderate Pain (Scale 4 to 6) Aspirin 325 mg 05/25/23 09:00 05/25/23 09:22 Aspirin 325 Mg Tab PO 325 mg DAILY [facility] Administration Atorvastatin Calcium 40 mg 05/24/23 21:00 05/24/23 20:16 Atorvastatin 40 Mg Tab PO 40 mg HS [facility] Administration Calcium Carbonate/Glycine 1,000 mg 05/24/23 14:10 Calcium Carbonate 500 Mg Chewable PO Q4HR PRN Dyspepsia Heparin Sodium/Sodium Chloride 250 mls @ 6.532 mls/hr 05/24/23 11:45 05/25/23 05:21 25,000 unit/ Sodium Chloride IV 18 units/kg/hr .Q24H [facility] 9.798 mls/hr Titration Protocol 12 UNITS/KG/HR Isosorbide Mononitrate 60 mg 05/24/23 14:30 05/25/23 09:22 Isosorbide Mononitrate Er 60 Mg Tab.Er.24h PO 60 mg DAILY [facility] Administration Losartan Potassium 25 mg 05/25/23 09:00 05/25/23 09:22 Losartan 25 Mg Tab PO 25 mg DAILY [facility] Administration Metoprolol Succinate 12.5 mg 05/26/23 09:00 Metoprolol Succinate (Er) 25 Mg Tab.Er.24h PO DAILY [facility] Naloxone HCl 0.2 mg 05/24/23 14:10 Naloxone 0.4 Mg/Ml 1 Ml Vial IVP Q2M PRN Opioid Reversal Nitroglycerin 0.4 mg 05/24/23 11:31 Nitroglycerin Sl Tabs 0.4 Mg Tab SUBLINGUAL Q5M PRN Chest Pain Ondansetron HCl 4 mg 05/24/23 14:10 Ondansetron 4 Mg/2 Ml Vial IVP Q8HR PRN Nausea And Vomiting Intake and Output 05/24/23 05/25/23 05/25/23 22:59 06:59 14:59 Intake Total 965.32 56.883 Balance 965.32 56.883 Intake: Intake, IV Titration 65.32 56.883 Amount Heparin Sod,Pork in 0.45% 65.32 56.883 NaCl 25,000 unit In 0.45 % NaCl 1 250ml.bag @ 12 UNITS/KG/HR 6.532 mls/hr IV .Q24H [facility] Rx#: [id number] Oral 900 Other: # Voids 1 Weight 54.431 kg 05/25/23 04:29 05/25/23 04:29
[2023-05-25] MEDS: RANOLAZINE 500 MG TAB.ER.12H PO SCH ×2 (17:02→20:01)
[2023-05-25] MEDS: ATORVASTATIN 80 MG TAB PO SCH (20:01)
[2023-05-26 08:39] LABS: HCT 38.8 % (39.0-53.0); HGB 12.6 gm/dL (13.0-17.5); MCH 32.6 pg (25.0-35.0); MCHC 32.5 g/dL (31.0-37.0); MCV 100.1 fL (80.0-100.0); Mean Platelet Volume 7.2; Platelet Count 311 k/uL (150-450); RBC 3.87 m/uL (4.30-5.90); RDW 13.6 % (11.5-15.5); WBC 6.1 k/uL (3.8-10.6)
[2023-05-26] MEDS: METOPROLOL SUCCINATE (ER) 25 MG TAB.ER.24H PO SCH (08:43)
[2023-05-26 08:49] LABS: African American GFR (CKD) >90 (>60 ml/min/1.73 sqM); Anion Gap 6 mmol/L; Blood Urea Nitrogen 12 mg/dL (9-20); Calcium 9.2 mg/dL (8.4-10.2); Carbon Dioxide 25 mmol/L (22-30); Chloride 105 mmol/L (98-107); Glucose 103 mg/dL (74-99); Non-African American GFR(CKD) >90 (>60 ml/min/1.73 sqM); Potassium 4.6 mmol/L (3.5-5.1); Sodium 136 mmol/L (137-145)
[2023-05-26] MEDS: ASPIRIN 81 MG PO SCH (09:23)
[2023-05-26] MEDS: LOSARTAN 25 MG TAB PO SCH (09:23)
[2023-05-26] MEDS: ISOSORBIDE MONONITRATE ER 60 MG TAB.ER.24H PO SCH (09:23)
[2023-05-26] MEDS: RANOLAZINE 500 MG TAB.ER.12H PO SCH ×2 (09:23→20:03)
--- NOTE | 2023-05-26 11:11 | P.PN ---
Subjective Progress Note Date: 05/26/23 * 48-year-old gentleman with past medical history significant for coronary artery disease, chronically occluded RCA, ischemic cardiomyopathy, alcohol use, nicotine dependence, presents to the emergency department with complains of chest pain. Patient said symptom onset was early in the morning around 3 AM. Patient complained of chest tightness, with intensity about 5 x 10. This was associated with diaphoresis. 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 Review of discharge paperwork shows patient was on aspirin, Cozaar, Lipitor, Coreg,. Patient was scheduled to follow-up with cardiology in one week post discharge patient will discharge to [facility] home * Workup in ER include basic metabolic panel which showed essentially normal liver profile, normal renal profile. Initial troponin less than 0.012, follow-up troponin 0.059 * EKG obtained in ER showed sinus bradycardia with ST segment changes in inferior leads and anterolateral lead Q waves noted in inferior leads as well * During my encounter patient does endorse to continuous smoking however he did cut down, patient also mentioned he did not have a drink in 2 weeks previously he was a heavy drinker * 05/25/23: Patient seen and evaluated bedside, patient had episode of bradycardia, EKG obtained shows sinus bradycardia, patient does have intermittent chest pain, follow-up troponins normal. Continue patient on telemetry monitoring. Coreg discontinued, transitioned to metoprolol to be started from 05/26, cardiology consulted * 05/26/2023: Patient seen and evaluated at bedside, patient does complain of intermittent chest pain was seen by cardiology optimizing medical management with indoor, losartan patient transitioned to metoprolol XL with holding parameters, heart rate in low 50s however patient asymptomatic REVIEW OF SYSTEMS: Chest pain intermittent CONSTITUTIONAL: No fever, no malaise, no fatigue. HEENT: No recent visual problems or hearing problems. Denied any sore throat. CARDIOVASCULAR: No chest pain, orthopnea, PND, no palpitations, no syncope. PULMONARY: No shortness of breath, no cough, no hemoptysis. GASTROINTESTINAL: No diarrhea, no nausea, no vomiting, no abdominal pain. NEUROLOGICAL: No headaches, no weakness, no numbness. HEMATOLOGICAL: Denies any bleeding or petechiae. GENITOURINARY: Denies any burning micturition, frequency, or urgency. MUSCULOSKELETAL/RHEUMATOLOGICAL: Denies any joint pain, swelling, or any muscle pain. ENDOCRINE: Denies any polyuria or polydipsia. PHYSICAL EXAMINATION: GENERAL: The patient is alert and oriented x3, not in any acute distress. Well developed, well nourished. HEENT: Pupils are round and equally reacting to light. EOMI. CARDIOVASCULAR: S1 and S2 present. No murmurs, rubs, or gallops. Bradycardia PULMONARY: Chest is clear to auscultation, no wheezing or crackles. ABDOMEN: Soft, nontender, nondistended, normoactive bowel sounds. No palpable organomegaly. MUSCULOSKELETAL: No joint swelling or deformity. EXTREMITIES: No cyanosis, clubbing, or pedal edema. NEUROLOGICAL: Gross neurological examination did not reveal any focal deficits. SKIN: No rashes. Objective - Vital Signs Vital signs: Vital Signs Temp 98.1 F 05/26/23 08:35 Pulse 57 L 05/26/23 08:35 Resp 16 05/26/23 08:35 BP 143/78 05/26/23 08:35 Pulse Ox 98 05/26/23 08:55 FiO2 Intake & Output 05/25/23 05/26/23 05/26/23 18:59 06:59 18:59 Intake Total 220 240 Balance 220 240 Intake: Oral 220 240 Other: # Voids 2 1 - Labs CBC & Chem 7: 05/26/23 08:16 05/26/23 08:16 Labs: Abnormal Lab Results - Last 24 Hours (Table) 05/25/23 05/26/23 05/26/23 Range/Units 10:38 08:16 08:16 RBC 3.87 L (4.30-5.90) m/uL Hgb 12.6 L (13.0-17.5) gm/dL Hct 38.8 L (39.0-53.0) % MCV 100.1 H (80.0-100.0) fL APTT 43.5 H (22.0-30.0) sec Sodium 136 L (137-145) mmol/L Glucose 103 H (74-99) mg/dL Assessment and Plan Assessment: Assessment and plan Coronary artery disease with non-ST elevated [place] Chronically occluded RCA Sinus Bradycardia Recurrent angina Hypertension Hyperlipidemia Alcohol/tobacco use * In regards to chest pain with elevated troponin,patient was on IV heparin/c ontinue aspirin and sublingual nitroglycerin for chest pain, IV heparin discontinued by cardiology * In regards to chronically occluded RCA optimize medical management continue aspirin, Lipitor,, Cozaar, Ranexa and Imdur * In regards to sinus bradycardia Coreg discontinued, and starting on metoprolol from 05/26 with holding parameter * In regards to hypertension continue Coreg, Cozaar * In regards to hyperlipidemia continue Lipitor * Attentional discharge in 24 hours if patient remains chest pain-free and asymptomatic * CODE STATUS is full code Time with Patient: Greater than 30
--- NOTE | 2023-05-26 14:21 | P.PN ---
Subjective Progress Note Date: 05/26/23 History of present illness: This is a 48 year old male with past medical history of ischemic cardiomyopathy, alcohol abuse, tobacco use and dependence. Patient was recently hospitalized earlier this month for chest pain and was found to have new diagnosis of cardiomyopathy with EF of 45%. We have been asked to evaluate the patient for unstable angina. The patient presented to the hospital with left-sided chest pressure/squeezing sensation. He states that it is going on all the time and not just with activity or with rest. He did have Nitropaste and nitro sublingual he is not sure if these helped. He does complain of headache. He has subsequently been started on Imdur and we will remove the Nitropaste. Patient has been started on a heparin drip. Patient also complained of swelling in his right leg which is not evident at the time of evaluation. Patient states that he has been taking all of his medications as directed since he left the hospital. EKG sinus rhythm Chest x-ray: No acute process Venous Doppler of the right lower extremity negative for DVT Troponin 0.059, 0.0122. Hemoglobin 11.8. Sodium 133, potassium 4.2, creatinine 0.61. Triglycerides 69, cholesterol 166, LDL 92, HDL 60. Liver function tests are normal. Lipase 100. Home cardiac medications: Aspirin 81 mg daily, atorvastatin 40 mg at bedtime, Coreg 3.125 mg twice daily, losartan 25 mg daily. Recent cardiac catheterization performed on 05/20/[address] Todd revealed 100% CT over the proximal RCA with right to right and [id number] collaterals, 40- 50% mid circumflex stenosis. Echocardiogram performed 05/17/2023 reveals normal LV size and ejection fraction of 45% with akinesia of the mid inferior and inferior basal segment with hypokinesia of the inferior septal wall. 05/26 Yesterday, patient was started on Imdur and also Ranexa was added. He states he is still having chest pain that is the number to3 out of 10. He states in general he is feeling a little bit better. He states the pain is worse with ambulation. Heart rate is in the 50s, blood pressure 96/58, pulse ox 98% on room air. Repeat blood work reveals potassium 4.6, creatinine 0.68. Hemoglobin 12.6. Physical examination: Gen: This is a 48 year old thin cachectic appearing male resting in bed and appears to be in no acute distress. VS: reviewed HEENT: Head is atraumatic, normocephalic. Pupils equal, round. Sclerae is an icteric. NECK: Supple. No JVD. . LUNGS: Clear to auscultation. No wheezes or rhonchi. No intercostal retractions. HEART: Regular rate and rhythm. no murmur. ABDOMEN: Soft No tenderness. EXTREMITIES: No pedal edema. No calf tenderness. NEUROLOGICAL: Patient is awake, alert and oriented x3. Assessment: Chest pain, possible unstable angina Known coronary artery disease on medical management Ischemic cardiomyopathy Alcohol abuse Tobacco use and dependence Plan: Continue patient's home cardiac medications Continue Imdur and Ranexa 500 mg every 12 hours We would like to monitor the patient overnight. However if patient ambulates this afternoon, if no worsening symptoms, patient is cleared from cardiology for discharge home later today. Thank you kindly for this consultation. Nurse practitioner note has been reviewed, I agree with documented findings and plan of care. Patient was seen and examined. Objective - Vital Signs Vital signs: Vital Signs Temp 97.6 F 05/25/23 20:00 Pulse 50 L 05/26/23 04:00 Resp 16 05/26/23 04:00 BP 137/79 05/26/23 04:00 Pulse Ox 98 05/26/23 08:55 FiO2 Intake & Output 05/25/23 05/26/23 05/26/23 18:59 06:59 18:59 Intake Total 220 240 Balance 220 240 Intake: Oral 220 240 Other: # Voids 2 1 - Labs CBC & Chem 7: 05/26/23 08:16 05/26/23 08:16 Labs: Abnormal Lab Results - Last 24 Hours (Table) 05/25/23 05/26/23 05/26/23 Range/Units 10:38 08:16 08:16 RBC 3.87 L (4.30-5.90) m/uL Hgb 12.6 L (13.0-17.5) gm/dL Hct 38.8 L (39.0-53.0) % MCV 100.1 H (80.0-100.0) fL APTT 43.5 H (22.0-30.0) sec Sodium 136 L (137-145) mmol/L Glucose 103 H (74-99) mg/dL
[2023-05-26] MEDS: ATORVASTATIN 80 MG TAB PO SCH (20:03)
[2023-05-27 07:37] LABS: Mean Platelet Volume 7.9; Platelet Count 345 k/uL (150-450)
--- NOTE | 2023-05-27 07:53 | P.PN ---
Subjective Progress Note Date: 05/27/23 Principal diagnosis: Chest pain The patient is a 48-year-old gentleman with CAD and known chronic total occlusion of the RCA and intermediate disease involving the left circumflex coronary artery as well as cardiomyopathy and also multiple comorbid conditions was admitted to the hospital with a chest discomfort. I we maximize his medical treatment and we added Ranexa in addition to Imdur. May [id number] The patient was seen and evaluated this morning. He is having chest discomfort which seems to be the same as before but doesn't seems to be worse with exertion. I'm going to add amlodipine to the current medical regimen 40 angina and for high blood pressure and also increase the dose of Ranexa. He might benefit from FFR of the left circumflex coronary artery. The examination is remarkable for regular rhythm with clear breathing sounds bilaterally and no low er extremity edema Assessment Coronary artery disease as described above Chest pain Hypertension Mild cardiomyopathy Plan Continue the current medical regimen Increase the dose of Ranexa Add amlodipine [place] consider Consider FFR of the left circumflex Objective - Vital Signs Vital signs: Vital Signs Temp 98 F 05/26/23 20:00 Pulse 48 L 05/27/23 04:00 Resp 16 05/27/23 04:00 BP 142/76 05/27/23 04:00 Pulse Ox 98 05/27/23 04:00 FiO2 Intake & Output 05/26/23 05/27/23 05/27/23 18:59 06:59 18:59 Intake Total 240 Balance 240 Intake: Oral 240 Other: # Voids 2 2 - Labs CBC & Chem 7: 05/26/23 08:16 05/26/23 08:16 Labs: Abnormal Lab Results - Last 24 Hours (Table) 05/26/23 05/26/23 Range/Units 08:16 08:16 RBC 3.87 L (4.30-5.90) m/uL Hgb 12.6 L (13.0-17.5) gm/dL Hct 38.8 L (39.0-53.0) % MCV 100.1 H (80.0-100.0) fL Sodium 136 L (137-145) mmol/L Glucose 103 H (74-99) mg/dL
[2023-05-27] MEDS: RANOLAZINE 500 MG TAB.ER.12H PO SCH ×2 (08:22→20:01)
[2023-05-27] MEDS: ASPIRIN 81 MG PO SCH (08:22)
[2023-05-27] MEDS: ISOSORBIDE MONONITRATE ER 60 MG TAB.ER.24H PO SCH (08:22)
[2023-05-27] MEDS: amLODIPine 2.5 MG TAB PO SCH (08:22)
[2023-05-27] MEDS: METOPROLOL SUCCINATE (ER) 25 MG TAB.ER.24H PO SCH (08:22)
[2023-05-27] MEDS: LOSARTAN 25 MG TAB PO SCH (08:22)
--- NOTE | 2023-05-27 11:35 | P.PN ---
Subjective Progress Note Date: 05/27/23 * 48-year-old gentleman with past medical history significant for coronary artery disease, chronically occluded RCA, ischemic cardiomyopathy, alcohol use, nicotine dependence, presents to the emergency department with complains of chest pain. Patient said symptom onset was early in the morning around 3 AM. Patient complained of chest tightness, with intensity about 5 x 10. This was associated with diaphoresis. 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 Review of discharge paperwork shows patient was on aspirin, Cozaar, Lipitor, Coreg,. Patient was scheduled to follow-up with cardiology in one week post discharge patient will discharge to [facility] home * Workup in ER include basic metabolic panel which showed essentially normal liver profile, normal renal profile. Initial troponin less than 0.012, follow-up troponin 0.059 * EKG obtained in ER showed sinus bradycardia with ST segment changes in inferior leads and anterolateral lead Q waves noted in inferior leads as well * During my encounter patient does endorse to continuous smoking however he did cut down, patient also mentioned he did not have a drink in 2 weeks previously he was a heavy drinker * 05/25/23: Patient seen and evaluated bedside, patient had episode of bradycardia, EKG obtained shows sinus bradycardia, patient does have intermittent chest pain, follow-up troponins normal. Continue patient on telemetry monitoring. Coreg discontinued, transitioned to metoprolol to be started from 05/26, cardiology consulted * 05/26/2023: Patient seen and evaluated at bedside, patient does complain of intermittent chest pain was seen by cardiology optimizing medical management with indoor, losartan patient transitioned to metoprolol XL with holding parameters, heart rate in low 50s however patient asymptomatic * 05/27/2023: Patient seen and evaluated bedside, patient alert and oriented 4 does complain of intermittent chest pain REVIEW OF SYSTEMS: Chest pain intermittent CONSTITUTIONAL: No fever, no malaise, no fatigue. HEENT: No recent visual problems or hearing problems. Denied any sore throat. CARDIOVASCULAR: No chest pain, orthopnea, PND, no palpitations, no syncope. PULMONARY: No shortness of breath, no cough, no hemoptysis. GASTROINTESTINAL: No diarrhea, no nausea, no vomiting, no abdominal pain. NEUROLOGICAL: No headaches, no weakness, no numbness. HEMATOLOGICAL: Denies any bleeding or petechiae. GENITOURINARY: Denies any burning micturition, frequency, or urgency. MUSCULOSKELETAL/RHEUMATOLOGICAL: Denies any joint pain, swelling, or any muscle pain. ENDOCRINE: Denies any polyuria or polydipsia. PHYSICAL EXAMINATION: GENERAL: The patient is alert and oriented x3, not in any acute distress. Well developed, well nourished. HEENT: Pupils are round and equally reacting to light. EOMI. CARDIOVASCULAR: S1 and S2 present. No murmurs, rubs, or gallops. Bradycardia PULMONARY: Chest is clear to auscultation, no wheezing or crackles. ABDOMEN: Soft, nontender, nondistended, normoactive bowel sounds. No palpable organomegaly. MUSCULOSKELETAL: No joint swelling or deformity. EXTREMITIES: No cyanosis, clubbing, or pedal edema. NEUROLOGICAL: Gross neurological examination did not reveal any focal deficits. SKIN: No rashes. Objective - Vital Signs Vital signs: Vital Signs Temp 98.2 F 05/27/23 08:15 Pulse 56 L 05/27/23 08:15 Resp 16 05/27/23 08:15 BP 137/71 05/27/23 08:15 Pulse Ox 99 05/27/23 08:15 FiO2 Intake & Output 05/26/23 05/27/23 05/27/23 18:59 06:59 18:59 Intake Total 240 118 Balance 240 118 Intake: Oral 240 118 Other: # Voids 2 2 - Labs CBC & Chem 7: 05/27/23 06:50 05/26/23 08:16 Assessment and Plan Assessment: Assessment and plan Coronary artery disease with non-ST elevated [place] Chronically occluded RCA Sinus Bradycardia Recurrent angina Hypertension Hyperlipidemia Alcohol/tobacco use * In regards to chest pain with elevated troponin,patient was on IV heparin/continue aspirin and sublingual nitroglycerin for chest pain, IV heparin discontinued by cardiology, planned for cardiac catheterization scheduled for 05/27 * In regards to chronically occluded RCA optimize medical management continue aspirin, Lipitor,, Cozaar, Ranexa and Imdur * In regards to sinus bradycardia Coreg discontinued, and starting on metoprolol from 05/26 , discontinued secondary to bradycardia * In regards to hypertension continue Cozaar, metoprolol discontinued secondary to bradycardia * In regards to hyperlipidemia continue Lipitor * CODE STATUS is full code
[2023-05-27] MEDS ORDERED: ASPIRIN 81 MG PO SCH (13:00)
[2023-05-27] MEDS ORDERED: HEPARIN SODIUM 1,000 UN/ML (10ML VL) ONE (13:45)
[2023-05-27] MEDS ORDERED: MIDAZOLAM 2 MG/2 ML VIAL IVP ONE (14:11)
[2023-05-27] MEDS ORDERED: LIDOCAINE 1% INJ 10MG/ML (5 ML VIAL-PF) SQ ONE (14:12)
[2023-05-27] MEDS ORDERED: SODIUM CHLORIDE 0.9% 1,000 ML IV ONE (14:12)
[2023-05-27] MEDS ORDERED: VERAPAMIL SYRINGE (5 MG/10 ML) INTRAARTER ONE (14:14)
[2023-05-27] MEDS ORDERED: HEPARIN SODIUM 1,000 UN/ML (10ML VL) IVP ONE ×2 (14:15→15:23)
[2023-05-27] MEDS ORDERED: CLOPIDOGREL 75 MG TAB ONE (14:35)
[2023-05-27] MEDS ORDERED: CLOPIDOGREL 75 MG TAB PO ONE (14:38)
[2023-05-27] MEDS ORDERED: MAG HYDROX/AL HYDROX/SIMETH 30 ML CUP PO PRN (14:38)
[2023-05-27] MEDS ORDERED: ZOLPIDEM 5 MG TAB PO PRN (14:38)
[2023-05-27] MEDS ORDERED: ATROPINE SULFATE 0.1 MG/ML 10ML SYRINGE IV PRN (14:38)
[2023-05-27] MEDS ORDERED: RX INFO: IV CONTRAST WAS GIVEN 1 EACH MISC MISCELLANE PRN (14:38)
[2023-05-27] MEDS ORDERED: NITROGLYCERIN 1000MCG/10ML SYRINGE INTRACORON ONE ×2 (14:40→14:56)
[2023-05-27] MEDS ORDERED: niCARdipine 25 MG/10 ML VIAL ONE (14:40)
[2023-05-27] MEDS ORDERED: niCARdipine Syringe (1,000 mcg/10 mL) INTRACORON ONE ×3 (14:41→14:56)
[2023-05-27] MEDS ORDERED: SODIUM CHLORIDE 0.9% 1,000 ML in EMPTY BAG 1 BAG IV SCH (14:45)
[2023-05-27] MEDS ORDERED: HYDROmorphone 0.5 MG/0.5 ML SYRINGE IVP ONE (14:48)
[2023-05-27] MEDS ORDERED: IOPAMIDOL-370 100ML BTL INJ ONE ×2 (15:22)
[2023-05-27] MEDS: ATORVASTATIN 80 MG TAB PO SCH (20:01)
[2023-05-28] MEDS: CLOPIDOGREL 75 MG TAB PO SCH (08:24)
[2023-05-28] MEDS: amLODIPine 2.5 MG TAB PO SCH (08:24)
[2023-05-28] MEDS: LOSARTAN 25 MG TAB PO SCH (08:24)
[2023-05-28] MEDS: RANOLAZINE 500 MG TAB.ER.12H PO SCH ×2 (08:24→20:45)
[2023-05-28] MEDS: ISOSORBIDE MONONITRATE ER 60 MG TAB.ER.24H PO SCH (08:24)
[2023-05-28] MEDS: ASPIRIN 81 MG PO SCH (08:24)
[2023-05-28 09:42] LABS: Basophils % (A) 0 %; Eosinophils # (A) 0.1 k/uL (0-0.7); Eosinophils % (A) 1 %; HCT 40.5 % (39.0-53.0); HGB 13.1 gm/dL (13.0-17.5); Lymphocytes # (A) 0.9 k/uL (1.0-4.8); Lymphocytes % (A) 10 %; MCH 32.5 pg (25.0-35.0); MCHC 32.4 g/dL (31.0-37.0); MCV 100.4 fL (80.0-100.0); Mean Platelet Volume 7.4; Monocytes # (A) 0.6 k/uL (0-1.0); Monocytes % (A) 7 %; Neutrophils # (A) 7.1 k/uL (1.3-7.7); Neutrophils % (A) 80 %; Platelet Count 360 k/uL (150-450); RBC 4.03 m/uL (4.30-5.90); RDW 13.8 % (11.5-15.5); WBC 8.8 k/uL (3.8-10.6)
[2023-05-28 09:59] LABS: African American GFR (CKD) >90 (>60 ml/min/1.73 sqM); Anion Gap 10 mmol/L; Blood Urea Nitrogen 11 mg/dL (9-20); Calcium 9.5 mg/dL (8.4-10.2); Carbon Dioxide 25 mmol/L (22-30); Chloride 102 mmol/L (98-107); Glucose 79 mg/dL (74-99); Non-African American GFR(CKD) >90 (>60 ml/min/1.73 sqM); Potassium 4.6 mmol/L (3.5-5.1); Sodium 137 mmol/L (137-145)
--- NOTE | 2023-05-28 10:00 | P.PN ---
Subjective Progress Note Date: 05/28/23 Principal diagnosis: Chest pain The patient is a 48-year-old gentleman with CAD and known chronic total occlusion of the RCA and intermediate disease involving the left circumflex coronary artery as well as cardiomyopathy and also multiple comorbid conditions was admitted to the hospital with a chest discomfort. I we maximize his medical treatment and we added Ranexa in addition to Imdur. May 272022 The patient was seen and evaluated this morning. He is having chest discomfort which seems to be the same as before but doesn't seems to be worse with exertion. I'm going to add amlodipine to the current medical regimen 40 angina and for high blood pressure and also increase the dose of Ranexa. He might benefit from FFR of the left circumflex coronary artery. The examination is remarkable for regular rhythm with clear breathing sounds bilaterally and no low er extremity edema 05/28/2023 The patient was seen and evaluated this morning. He underwent a heart catheterization and stenting of the left circumflex yesterday. He stated that his chest discomfort has been better. The right radial site is soft and nontender was no bruises. He is on dual antiplatelet therapy along with a statin. I would monitor the patient for additional 24 hours and possible discharge home tomorrow. Assessment Coronary artery disease and status post PCI of the left circumflex Chest pain Hypertension Mild cardiomyopathy Plan Continue the current medical regimen Monitor the patient for additional 24 hours Follow-up with the patient Objective - Vital Signs Vital signs: Vital Signs Temp 98.3 F 05/28/23 08:20 Pulse 53 L 05/28/23 08:20 Resp 16 05/28/23 08:20 BP 128/77 05/28/23 08:20 Pulse Ox 98 05/28/23 08:20 FiO2 Intake & Output 05/27/23 05/28/23 05/28/23 18:59 06:59 18:59 Intake Total 398 200 180 Balance 398 200 180 Intake: IV 100 Oral 298 200 180 Other: Voiding Method Toilet # Voids 1 2 - Labs CBC & Chem 7: 05/28/23 09:01 05/26/23 08:16 Labs: Abnormal Lab Results - Last 24 Hours (Table) 05/28/23 Range/Units 09:01 RBC 4.03 L (4.30-5.90) m/uL MCV 100.4 H (80.0-100.0) fL Lymphocytes # 0.9 L (1.0-4.8) k/uL
--- NOTE | 2023-05-28 12:54 | P.PN ---
Subjective Progress Note Date: 05/28/23 * 48-year-old gentleman with past medical history significant for coronary artery disease, chronically occluded RCA, ischemic cardiomyopathy, alcohol use, nicotine dependence, presents to the emergency department with complains of chest pain. Patient said symptom onset was early in the morning around 3 AM. Patient complained of chest tightness, with intensity about 5 x 10. This was associated with diaphoresis. 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 Review of discharge paperwork shows patient was on aspirin, Cozaar, Lipitor, Coreg,. Patient was scheduled to follow-up with cardiology in one week post discharge patient will discharge to [facility] home * Workup in ER include basic metabolic panel which showed essentially normal liver profile, normal renal profile. Initial troponin less than 0.012, follow-up troponin 0.059 * EKG obtained in ER showed sinus bradycardia with ST segment changes in inferior leads and anterolateral lead Q waves noted in inferior leads as well * During my encounter patient does endorse to continuous smoking however he did cut down, patient also mentioned he did not have a drink in 2 weeks previously he was a heavy drinker * 05/25/23: Patient seen and evaluated bedside, patient had episode of bradycardia, EKG obtained shows sinus bradycardia, patient does have intermittent chest pain, follow-up troponins normal. Continue patient on telemetry monitoring. Coreg discontinued, transitioned to metoprolol to be started from 05/26, cardiology consulted * 05/26/2023: Patient seen and evaluated at bedside, patient does complain of intermittent chest pain was seen by cardiology optimizing medical management with indoor, losartan patient transitioned to metoprolol XL with holding parameters, heart rate in low 50s however patient asymptomatic * 05/27/2023: Patient seen and evaluated bedside, patient alert and oriented 4 does complain of intermittent chest pain * 05/28/23: Patient seen and evaluated bedside, patient alert and oriented 4,, status post cardiac catheterization right radial access cardiology planning to monitor for 24 hours REVIEW OF SYSTEMS: Chest pain resolved CONSTITUTIONAL: No fever, no malaise, no fatigue. HEENT: No recent visual problems or hearing problems. Denied any sore throat. CARDIOVASCULAR: No chest pain, orthopnea, PND, no palpitations, no syncope. PULMONARY: No shortness of breath, no cough, no hemoptysis. GASTROINTESTINAL: No diarrhea, no nausea, no vomiting, no abdominal pain. NEUROLOGICAL: No headaches, no weakness, no numbness. HEMATOLOGICAL: Denies any bleeding or petechiae. GENITOURINARY: Denies any burning micturition, frequency, or urgency. MUSCULOSKELETAL/RHEUMATOLOGICAL: Denies any joint pain, swelling, or any muscle pain. ENDOCRINE: Denies any polyuria or polydipsia. PHYSICAL EXAMINATION: GENERAL: The patient is alert and oriented x3, not in any acute distress. Well developed, well nourished. HEENT: Pupils are round and equally reacting to light. EOMI. CARDIOVASCULAR: S1 and S2 present. No murmurs, rubs, or gallops. Bradycardia PULMONARY: Chest is clear to auscultation, no wheezing or crackles. ABDOMEN: Soft, nontender, nondistended, normoactive bowel sounds. No palpable organomegaly. MUSCULOSKELETAL: No joint swelling or deformity. EXTREMITIES: No cyanosis, clubbing, or pedal edema. NEUROLOGICAL: Gross neurological examination did not reveal any focal deficits. SKIN: No rashes. Objective - Vital Signs Vital signs: Vital Signs Temp 98.4 F 05/28/23 12:00 Pulse 56 L 05/28/23 12:00 Resp 16 05/28/23 12:00 BP 114/67 05/28/23 12:00 Pulse Ox 98 05/28/23 12:00 FiO2 Intake & Output 05/27/23 05/28/23 05/28/23 18:59 06:59 18:59 Intake Total 398 200 180 Balance 398 200 180 Intake: IV 100 Oral 298 200 180 Other: Voiding Method Toilet Toilet # Voids 1 2 1 - Labs CBC & Chem 7: 05/28/23 09:01 05/28/23 09:01 Labs: Abnormal Lab Results - Last 24 Hours (Table) 05/28/23 Range/Units 09:01 RBC 4.03 L (4.30-5.90) m/uL MCV 100.4 H (80.0-100.0) fL Lymphocytes # 0.9 L (1.0-4.8) k/uL Assessment and Plan Assessment: Assessment and plan Coronary artery disease with non-ST elevated [place] Chronically occluded RCA Sinus Bradycardia Recurrent angina Hypertension Hyperlipidemia Alcohol/tobacco use * In regards to chest pain with elevated troponin,patient was on IV heparin/continue aspirin and sublingual nitroglycerin for chest pain, IV heparin discontinued by cardiology, planned for cardiac catheterization scheduled for 05/27, status post FFR * In regards to chronically occluded RCA optimize medical management continue aspirin, Lipitor,, Cozaar, Ranexa and Imdur, continue Plavix * In regards to sinus bradycardia Coreg discontinued, and starting on metoprolol from 05/26 , discontinued secondary to bradycardia * In regards to hypertension continue Cozaar, metoprolol discontinued secondary to bradycardia * In regards to hyperlipidemia continue Lipitor * CODE STATUS is full code Time with Patient: Greater than 30
[2023-05-28] MEDS: HYDROcodone/APAP 5-325MG 1 EACH TAB PO PRN (20:44)
[2023-05-28] MEDS: ATORVASTATIN 80 MG TAB PO SCH (20:45)
[2023-05-29] MEDS: HYDROcodone/APAP 5-325MG 1 EACH TAB PO PRN ×2 (00:12→12:03)
[2023-05-29] MEDS: CLOPIDOGREL 75 MG TAB PO SCH (09:16)
[2023-05-29] MEDS: ISOSORBIDE MONONITRATE ER 60 MG TAB.ER.24H PO SCH (09:16)
[2023-05-29] MEDS: ASPIRIN 81 MG PO SCH (09:16)
[2023-05-29] MEDS: LOSARTAN 25 MG TAB PO SCH (09:16)
[2023-05-29] MEDS: amLODIPine 2.5 MG TAB PO SCH (09:16)
[2023-05-29 09:17] VITALS: RESP 17
[2023-05-29] MEDS: RANOLAZINE 500 MG TAB.ER.12H PO SCH (09:17)
--- NOTE | 2023-05-29 09:56 | P.PN ---
Subjective Progress Note Date: 05/29/23 Principal diagnosis: Chest pain The patient is a 48-year-old gentleman with CAD and known chronic total occlusion of the RCA and intermediate disease involving the left circumflex coronary artery as well as cardiomyopathy and also multiple comorbid conditions was admitted to the hospital with a chest discomfort. I we maximize his medical treatment and we added Ranexa in addition to Imdur. May [id number] The patient was seen and evaluated this morning. He is having chest discomfort which seems to be the same as before but doesn't seems to be worse with exertion. I'm going to add amlodipine to the current medical regimen 40 angina and for high blood pressure and also increase the dose of Ranexa. He might benefit from FFR of the left circumflex coronary artery. The examination is remarkable for regular rhythm with clear breathing sounds bilaterally and no low er extremity edema 05/28/2023 The patient was seen and evaluated this morning. He underwent a heart catheterization and stenting of the left circumflex yesterday. He stated that his chest discomfort has been better. The right radial site is soft and nontender was no bruises. He is on dual antiplatelet therapy along with a statin. I would monitor the patient for additional 24 hours and possible discharge home tomorrow. 05/29/2023 The patient was seen and evaluated this morning. The chest discomfort has improved significantly. Hemodynamically he is stable. He is on maximize medical treatment for coronary artery disease including dual antiplatelet therapy. From a cardiac vascular standpoint of view, the patient can be discharged home in the next 12-24 hours. The examination is remarkable for regular rhythm with clear breathing sounds bilaterally and no lower extremity edema noted Assessment Coronary artery disease and status post PCI of the left circumflex Chest pain Hypertension Mild cardiomyopathy Plan Continue the current medical regimen The patient can be discharged home Objective - Vital Signs Vital signs: Vital Signs Temp 98.1 F 05/29/23 08:00 Pulse 60 05/29/23 08:00 Resp 17 05/29/23 08:00 BP 132/85 05/29/23 08:00 Pulse Ox 100 05/29/23 08:00 FiO2 Intake & Output 05/28/23 05/29/23 05/29/23 18:59 06:59 18:59 Intake Total 360 10 720 Balance 360 10 720 Intake: IV 10 Invasive Line 2 10 Oral 360 720 Other: Voiding Method Toilet Toilet # Voids 1 2 1 - Labs CBC & Chem 7: 05/28/23 09:01 05/28/23 09:01
--- NOTE | 2023-05-29 12:13 | P.DS ---
Providers Date of admission: 05/24/23 11:33 Expected date of discharge: 05/29/23 Attending physician: Cameron Mckeon MD Consults: 05/24/23 11:32 Consult Physician Urgent Consulting Provider: Pardeep Norris Consult Reason/Comments: ua Do you want consulting provider notified?: Already Contacted 05/27/23 14:39 Consult Physician Routine Consulting Provider: [facility] Consult Reason/Comments: Post Interventional Patient Do you want consulting provider notified?: Already Contacted Primary care physician: Stated None Hospital Course: * 48-year-old gentleman with past medical history significant for coronary artery disease, chronically occluded RCA, ischemic cardiomyopathy, alcohol use, nicotine dependence, presents to the emergency department with complains of chest pain. Patient said symptom onset was early in the morning around 3 AM. Patient complained of chest tightness, with intensity about 5 x 10. This was associated with diaphoresis. 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 Review of discharge paperwork shows patient was on aspirin, Cozaar, Lipitor, Coreg,. Patient was scheduled to follow-up with cardiology in one week post discharge patient will discharge to [facility] home * Workup in ER include basic metabolic panel which showed essentially normal liver profile, normal renal profile. Initial troponin less than 0.012, follow-up troponin 0.059 * EKG obtained in ER showed sinus bradycardia with ST segment changes in inferior leads and anterolateral lead Q waves noted in inferior leads as well * During my encounter patient does endorse to continuous smoking however he did cut down, patient also mentioned he did not have a drink in 2 weeks previously he was a heavy drinker * 05/25/23: Patient seen and evaluated bedside, patient had episode of bradycardia, EKG obtained shows sinus bradycardia, patient does have intermittent chest pain, follow-up troponins normal. Continue patient on telemetry monitoring. Coreg discontinued, transitioned to metoprolol to be started from 05/26, cardiology consulted * 05/26/2023: Patient seen and evaluated at bedside, patient does complain of intermittent chest pain was seen by cardiology optimizing medical management with indoor, losartan patient transitioned to metoprolol XL with holding parameters, heart rate in low 50s however patient asymptomatic * 05/27/2023: Patient seen and evaluated bedside, patient alert and oriented 4 does complain of intermittent chest pain * 05/28/23: Patient seen and evaluated bedside, patient alert and oriented 4,, status post cardiac catheterization right radial access cardiology planning to monitor for 24 hours * 05/29/23: Patient seen and evaluated and bedside, seen by cardiology, cleared for discharge patient started on Ranexa and Plavix and Imdur, Coreg discontinued secondary to bradycardia, outpatient follow-up with cardiology patient remains chest pain-free REVIEW OF SYSTEMS: Chest pain resolved CONSTITUTIONAL: No fever, no malaise, no fatigue. HEENT: No recent visual problems or hearing problems. Denied any sore throat. CARDIOVASCULAR: No chest pain, orthopnea, PND, no palpitations, no syncope. PULMONARY: No shortness of breath, no cough, no hemoptysis. GASTROINTESTINAL: No diarrhea, no nausea, no vomiting, no abdominal pain. NEUROLOGICAL: No headaches, no weakness, no numbness. HEMATOLOGICAL: Denies any bleeding or petechiae. GENITOURINARY: Denies any burning micturition, frequency, or urgency. MUSCULOSKELETAL/RHEUMATOLOGICAL: Denies any joint pain, swelling, or any muscle pain. ENDOCRINE: Denies any polyuria or polydipsia. PHYSICAL EXAMINATION: GENERAL: The patient is alert and oriented x3, not in any acute distress. Well developed, well nourished. HEENT: Pupils are round and equally reacting to light. EOMI. CARDIOVASCULAR: S1 and S2 present. No murmurs, rubs, or gallops. Heart rate improved PULMONARY: Chest is clear to auscultation, no wheezing or crackles. ABDOMEN: Soft, nontender, nondistended, normoactive bowel sounds. No palpable organomegaly. MUSCULOSKELETAL: No joint swelling or deformity. EXTREMITIES: No cyanosis, clubbing, or pedal edema. NEUROLOGICAL: Gross neurological examination did not reveal any focal deficits. SKIN: No rashes. Assessment: Assessment and plan Coronary artery disease with non-ST elevated AK Chronically occluded RCA Sinus Bradycardia Recurrent angina Hypertension Hyperlipidemia Alcohol/tobacco use * In regards to chest pain with elevated troponin,patient was on IV heparin/continue aspirin and sublingual nitroglycerin for chest pain, IV heparin discontinued by cardiology, planned for cardiac catheterization scheduled for 05/27, status post was luminal angioplasty * In regards to chronically occluded RCA optimize medical management continue aspirin, Lipitor,, Cozaar, Ranexa and Imdur, continue Plavix * In regards to sinus bradycardia Coreg discontinued, and starting on metoprolol from 05/26 , discontinued secondary to bradycardia * In regards to hypertension continue Cozaar, metoprolol discontinued secondary to bradycardia * In regards to hyperlipidemia continue Lipitor * Patient follow up with cardiology Patient Condition at Discharge: Stable Plan - Discharge Summary Discharge Rx Participant: No New Discharge Prescriptions: New Ranolazine [Ranexa] 1,000 mg PO Q12HR #60 tab Isosorbide Mononitrate ER [Imdur] 60 mg PO DAILY 30 Days #30 tab amLODIPine [Norvasc] 2.5 mg PO DAILY 30 Days #30 tab Clopidogrel [Plavix] 75 mg PO DAILY 30 Days #30 tab Continue Aspirin 81 mg PO DAILY #90 tab Losartan [Cozaar] 25 mg PO DAILY #90 tab Atorvastatin [Lipitor] 40 mg PO HS #90 tab Thiamine [Vitamin B-1] 100 mg PO DIRECTED Discontinued carvediloL [Coreg] 3.125 mg PO BID-W/MEALS #90 tab Discharge Medication List Thiamine [Vitamin B-1] 100 mg PO DIRECTED 05/17/23 [History] Aspirin 81 mg PO DAILY #90 tab 05/20/23 [Rx] Atorvastatin [Lipitor] 40 mg PO HS #90 tab 05/20/23 [Rx] Losartan [Cozaar] 25 mg PO DAILY #90 tab 05/20/23 [Rx] Ranolazine [Ranexa] 1,000 mg PO Q12HR #60 tab 05/27/23 [Rx] Clopidogrel [Plavix] 75 mg PO DAILY 30 Days #30 tab 05/29/23 [Rx] Isosorbide Mononitrate ER [Imdur] 60 mg PO DAILY 30 Days #30 tab 05/29/23 [Rx] amLODIPine [Norvasc] 2.5 mg PO DAILY 30 Days #30 tab 05/29/23 [Rx] Follow up Appointment(s)/Referral(s): None,Stated [Primary Care Provider] - 1-[address] MD [STAFF PHYSICIAN] - 1 Week Activity/Diet/Wound Care/Special Instructions: Ranexa is $450.00 Discharge/Stand Alone Forms: AA Meetings [place], Who Do I Call?, Community Resources, In Substance Abuse Facilities, Personal Traffic Sign Supervisor, Area PCPs Discharge Disposition: HOME SELF-CARE
[2023-05-29 16:36] VITALS: BP 122/80; PULSE 61; TEMP 98.3
--- NOTE | 2023-08-03 10:22 | P.PCN ---
Date of Procedure: 05/27/23 Operative Findings: PERCUTANEOUS CORONARY INTERVENTION Performing physician Cabrera Lane M.D. Procedure Performed: 1. Successful stenting of the LCx using 3.5 x 15 mm and 2.75 x 15 mm Xience drug-eluting stent with an excellent angiographic results. 2. Adjunctive use of intravascular imaging. 3. Ultrasound guided access of the right radial Indication: This is a 48-year-old gentleman with CAD who documented to have chronic total occlusion of the RCA and intermediate disease involving the left circumflex coronary artery. He continues to have ongoing chest discomfort in spite of maximize medical treatment and being on at least 3 anti-ischemic medications. In the light of that an FFR of the LCx was advised. Approach: Right radial artery Complications: None Procedure Discussion: After obtaining an informed consent the patient was brought to the cardiac labor representative. The right radial artery was cannulated using puncture technique under ultrasound guidance to micropuncture wire passed easily then I placed a 6-Slovenian 11 cm sheath. I gave the patient 2 mg of verapamil intra-arterial and subsequently heparin IV was initiated was continuous ACT monitoring. Initially we decided to do one FFR of the left circumflex but after the first angiogram the lesion in the left circumflex appears to be extremely concerning and more than 70-80% so we decided to fix the lesion. I did wire the left circumflex using a run through wire. The first run through wire was advanced toward OM1 and the second run-through wire was advanced toward the AV groove left circumflex coronary artery. Predilatation was performed using 3.0 x 12 mm balloon after intravascular ultrasound was performed and showed a diameter around a 3 mm. After that I advanced a 3.5 x 15 mm stent where the stent was positioned under fluoroscopy guidance and deployed under its nominal pressure. The following angiogram showed no flow in the left circumflex with a concern about distal edge dissection. I balloon the distal edge using 2.5 x 12 mm balloon with methodist of the flow in the left circumflex coronary artery with a decided to place a short stent distally. At that point I advanced a 2.75 x 15 mm another stent where the second stent was deployed with about 2 mm overlap between the first and second stent. Final angiogram was performed and showed good flow in the left circumflex with a good angiographic results and the procedure was completed was no complication Postprocedure Management: 1. Dual antiplatelet therapy 2. Aggressive cholesterol can to 3. Risk factors modification
== END 2023-05-29 18:20 | disposition home or self-care (01) | DRG 322 ==
LOC: EC 08:05 → 3SCARD 11:32 → OBSVTOIN 11:33 → 3SCARD 14:27
PROVIDERS: ADMIT Internal Medicine; ATTEND Internal Medicine
PROC: 027035Z Dilation of Coronary Artery, One Artery with Two Drug-eluting Intraluminal Devices, Percutaneous Approach (ICD-10-PCS; principal; 2023-05-27 11:30)
PROC: B240ZZ3 Ultrasonography of Single Coronary Artery, Intravascular (ICD-10-PCS; 2023-05-27 11:30)
DX: I21.4 Non-ST elevation (NSTEMI) myocardial infarction (principal); E78.5 Hyperlipidemia, unspecified; R00.1 Bradycardia, unspecified; F17.210 Nicotine dependence, cigarettes, uncomplicated; F41.9 Anxiety disorder, unspecified; I10 Essential (primary) hypertension; I25.110 Atherosclerotic heart disease of native coronary artery with unstable angina pectoris; I25.5 Ischemic cardiomyopathy; I48.91 Unspecified atrial fibrillation; K21.9 Gastro-esophageal reflux disease without esophagitis; Z79.02 Long term (current) use of antithrombotics/antiplatelets; Z79.899 Other long term (current) drug therapy; Z79.82 Long term (current) use of aspirin; Z98.61 Coronary angioplasty status
CPT/HCPCS: 36415; 71046; 80048; 80053; 80061; 82150; 83690; 83735; 84484; 85025; 85027; 85049; 85379; 85610; 85730; 92978; 93005; 94760; 96365; 96366; 96375; 99291

== ENCOUNTER 2023-05-30 03:13 | Inpatient (IN) | payer OTHER ==
[2023-05-30 04:12] LABS: Basophils % (A) 0 %; Eosinophils # (A) 0.2 k/uL (0-0.7); Eosinophils % (A) 2 %; HGB 13.7 gm/dL (13.0-17.5); Lymphocytes # (A) 1.4 k/uL (1.0-4.8); Lymphocytes % (A) 11 %; MCH 33.3 pg (25.0-35.0); MCHC 33.5 g/dL (31.0-37.0); MCV 99.2 fL (80.0-100.0); Monocytes # (A) 0.7 k/uL (0-1.0); Monocytes % (A) 6 %; Neutrophils # (A) 9.7 k/uL (1.3-7.7); Neutrophils % (A) 79 %; Platelet Count 363 k/uL (150-450); RBC 4.13 m/uL (4.30-5.90); RDW 13.6 % (11.5-15.5); WBC 12.3 k/uL (3.8-10.6)
[2023-05-30 04:21] LABS: INR 0.9 (<1.2); Partial Thromboplastin Time 24.2 sec (22.0-30.0); Prothrombin Time 10.3 sec (10.0-12.5)
[2023-05-30 04:38] LABS: ALT 21 U/L (4-49); AST 34 U/L (17-59); African American GFR (CKD) >90 (>60 ml/min/1.73 sqM); Albumin 4.4 g/dL (3.5-5.0); Alkaline Phosphatase 61 U/L (38-126); Amylase 81 U/L (30-110); Anion Gap 12 mmol/L; Blood Urea Nitrogen 17 mg/dL (9-20); Calcium 9.7 mg/dL (8.4-10.2); Carbon Dioxide 24 mmol/L (22-30); Chloride 99 mmol/L (98-107); Glucose 95 mg/dL (74-99); Lipase 81 U/L (23-300); Magnesium 1.8 mg/dL (1.6-2.3); Non-African American GFR(CKD) >90 (>60 ml/min/1.73 sqM); Potassium 4.1 mmol/L (3.5-5.1); Sodium 135 mmol/L (137-145); Total Bilirubin 0.3 mg/dL (0.2-1.3)
[2023-05-30 04:45] LABS: NT-Pro-B-Type Natriuretic Pept 391 pg/mL
--- NOTE | 2023-05-30 04:54 | ED ---
Chest Pain HPI - General Chief Complaint: Chest Pain Stated Complaint: chest pain Time Seen by Provider: 05/30/23 03:37 Source: patient Mode of arrival: ambulatory Limitations: no limitations - History of Present Illness Initial Comments: this patient's 48-year-old man who had onset of left-sided chest pain and also having right upper extremity pain. Patient states he did have heart cath 3 days ago now. Patient describes pain as aching, constant, he has not noted worsening or relieving factors. He has had some associated shortness of breath. Patient has been having similar pains going back weeks to months, right upper extremity pain is new. MD Complaint: chest pain -: hour(s) Onset: during rest Pain Location: left chest Pain Radiation: RUE Severity: moderate Quality: aching Consistency: constant Improves With: nothing Worsens With: nothing Treatments Prior to Arrival: none - Related Data Home Medications Medication Instructions Recorded Confirmed Thiamine [Vitamin B-1] 100 mg PO DAILY 05/17/23 05/30/23 Previous Rx's Medication Instructions Recorded Aspirin 81 mg PO DAILY #90 tab 05/20/23 Atorvastatin [Lipitor] 40 mg PO HS #90 tab 05/20/23 Losartan [Cozaar] 25 mg PO DAILY #90 tab 05/20/23 Ranolazine [Ranexa] 1,000 mg PO Q12HR #60 tab 05/27/23 Clopidogrel [Plavix] 75 mg PO DAILY 30 Days #30 tab 05/29/23 amLODIPine [Norvasc] 2.5 mg PO DAILY 30 Days #30 tab 05/29/23 Acetaminophen Tab [Tylenol] 650 mg PO Q6HR PRN tab 06/01/23 Isosorbide Mononitrate ER [Imdur] 120 mg PO DAILY 30 Days #60 tab 06/01/23 Nitroglycerin Sl Tabs [Nitrostat] 0.4 mg SUBLINGUAL Q5M PRN #30 tab 06/01/23 Allergies Allergy/AdvReac Type Severity Reaction Status Date / Time No Known Allergies Allergy Verified 05/30/23 11:33 Review of Systems ROS Statement: Those systems with pertinent positive or pertinent negative responses have been documented in the HPI. ROS Other: All systems not noted in ROS Statement are negative. Constitutional: Denies: fever, chills, weakness Respiratory: Reports: dyspnea. Denies: cough, wheezes Cardiovascular: Reports: chest pain. Denies: palpitations, edema, syncope Gastrointestinal: Denies: abdominal pain, nausea, vomiting Genitourinary: Denies: dysuria, hematuria Musculoskeletal: Denies: back pain Skin: Denies: rash Neurological: Denies: headache, weakness, numbness EKG Findings - EKG Results: EKG: interpreted by NALLELY, sinus rhythm (rate 63 bpm), normal axis, normal QRS, normal ST/T Past Medical History Past Medical History: Atrial Fibrillation History of Any Multi-Drug Resistant Organisms: None Reported Past Surgical History: Heart Catheterization, Hernia Repair Past Anesthesia/Blood Transfusion Reactions: No Reported Reaction Past Psychological History: Anxiety Smoking Status: Current some day smoker Past Alcohol Use History: None Reported Past Drug Use History: Marijuana - Past Family History Father Family Medical History: Diabetes Mellitus Additional Family Medical History / Comment(s): of a heart of attack General Exam Limitations: no limitations General appearance: alert, in no apparent distress Head exam: Present: atraumatic, normocephalic Eye exam: Present: normal appearance. Absent: scleral icterus, conjunctival injection Neck exam: Present: normal inspection Respiratory exam: Present: normal lung sounds bilaterally. Absent: respiratory distress, wheezes, rales, rhonchi, stridor, accessory muscle use Cardiovascular Exam: Present: regular rate, normal rhythm, normal heart sounds. Absent: systolic murmur, diastolic murmur, rubs, gallop GI/Abdominal exam: Present: soft. Absent: distended, tenderness, guarding, rebound, rigid Extremities exam: Present: normal inspection, normal capillary refill. Absent: pedal edema, calf tenderness Back exam: Present: normal inspection. Absent: CVA tenderness (R), CVA tenderness (L) Neurological exam: Present: alert Skin exam: Present: warm, dry, intact, normal color. Absent: rash Course Vital Signs 05/30/23 05/30/23 05/30/23 03:17 04:18 05:00 Temperature 98.3 F Pulse Rate 69 58 L 58 L Respiratory 18 16 16 Rate Blood Pressure 171/97 128/84 119/84 O2 Sat by Pulse 98 96 95 Oximetry 05/30/23 05/30/23 05/30/23 08:00 09:47 12:46 Temperature Pulse Rate 53 L 76 73 Respiratory 18 18 18 Rate Blood Pressure 127/79 134/95 100/69 O2 Sat by Pulse 95 96 96 Oximetry 05/30/23 05/30/23 05/30/23 14:36 20:34 22:00 Temperature 98.3 F Pulse Rate 56 L 57 L 59 L Respiratory 18 20 18 Rate Blood Pressure 97/66 133/92 O2 Sat by Pulse 98 98 Oximetry Chest Pain MDM - MDM The patient had chest x-ray which I interpreted as negative for acute infiltrate, pneumothorax, congestive heart failure Was pt. sent in by a medical professional or institution (, ION, RESEARCH LIBRARIAN, urgent care, hospital, or skilled nursing...) When possible be specific @ -[No] Did you speak to anyone other than the patient for history (EMS, parent, family, police, friend...)? What history was obtained from this source @ -[No] Did you review nursing and triage notes (agree or disagree)? Why? @ -[I reviewed and agree with nursing and triage notes] Were old charts reviewed (outside hosp., previous admission, EMS record, old EKG, old radiological studies, urgent care reports/EKG's, skilled nursing records)? Report findings @ -[Yes old charts were reviewed] Differential Diagnosis (chest pain, altered mental status, abdominal pain women, abdominal pain men, vaginal bleeding, weakness, fever, dyspnea, syncope, headache, dizziness, GI bleed, back pain, seizure, CVA, palpatations, mental health, musculoskeletal)? @ -[Differential Chest Pain: Stable Angina, Unstable Angina, STEMI, NSTEMI Aortic Dissection, Pneumothorax, Musculoskeletal, Esophageal Spasm GERD, Cholecystitis, Pancreatitis, Zoster, this is not meant to be an all-inclusive list. EKG interpreted by me (3pts min.). @ -[I interpreted reported As above] X-rays interpreted by me (1pt min.). @ -[Interpreted as above CT interpreted by me (1pt min.). @ -[None done] U/S interpreted by me (1pt. min.). @ -[None done] What testing was considered but not performed or refused? (CT, X-rays, U/S, labs)? Why? @ -[None] What meds were considered but not given or refused? Why? @ -[None] Did you discuss the management of the patient with other professionals (professionals i.e. , PA, RESEARCH LIBRARIAN, lab, RT, psych nurse, medical social consultant, senior visual designer, teacher, special weapons and tactics officer, case resolution specialist)? Give summary @ -Case is discussed with admitting physician and treatment recommendations are incorporated Was smoking cessation discussed for >3mins.? @ -[No] Was critical care preformed (if so, how long)? @ -[Yes, 30 minutes Were there social determinants of health that impacted care today? How? (Homelessness, low income, unemployed, alcoholism, drug addiction, transportation, low edu. Level, literacy, decrease access to med. care, [facility], rehab)? @ -[No] Was there de-escalation of care discussed even if they declined (Discuss DNR or withdrawal of care, Hospice)? DNR status @ -[No] What co-morbidities impacted this encounter? (DM, HTN, Smoking, COPD, CAD, Cancer, CVA, ARF, Chemo, Hep., AIDS, mental health diagnosis, sleep apnea, morbid obesity)? @ -[There is underlying coronary artery disease and hypertension Was patient admitted / discharged? Hospital course, mention meds given and route, prescriptions, significant lab abnormalities, going to OR and other pertinent info. @ -[Patient is 48-year-old man with chest pain who is found to have elevated troponin here. Given this will have patient admitted for serial troponins and cardiology consultation Undiagnosed new problem with uncertain prognosis? @ -[No] Drug Therapy requiring intensive monitoring for toxicity (Heparin, Nitro, Insulin, Cardizem)? @ -[Heparin started Were any procedures done? @ -[No] Diagnosis/symptom? @ -[Acute chest pain Elevated troponin Acute, or Chronic, or Acute on Chronic? @ -[Acute Uncomplicated (without systemic symptoms) or Complicated (systemic symptoms)? @ -[Uncomplicated Side effects of treatment? @ -[No] Exacerbation, Progression, or Severe Exacerbation? @ -[No] Poses a threat to life or bodily function? How? (Chest pain, [place], [place], pneumonia, PE, COPD, DKA, ARF, appy, cholecystitis, CVA, Diverticulitis, Homicidal, Suicidal, threat to staff... and all critical care pts) @ -Yes, chest pain if of cardiac etiology may progress to [place]/ Disposition Clinical Impression: Chest pain Disposition: ADMITTED IP TO THIS HOSP Condition: Good Is patient prescribed a controlled substance at d/c from ED?: No
--- NOTE | 2023-05-30 05:16 | XR ---
EXAM: XR Chest, 2 Views CLINICAL HISTORY: Chest Pain TECHNIQUE: Frontal and lateral views of the chest. COMPARISON: April 18, 2023 FINDINGS: Lungs: Unremarkable. No infiltration, atelectasis or mass density. Pleural space: Unremarkable. No pneumothorax. No pleural fluid. Heart: Unremarkable. No cardiomegaly. Mediastinum: Unremarkable. Normal mediastinal contour. Bones/joints: Unremarkable. No acute abnormalities. IMPRESSION: Negative chest x-rays.
[2023-05-30] MEDS ORDERED: HEPARIN SODIUM 1,000 UN/ML (10ML VL) IV ONE (05:42)
[2023-05-30] MEDS ORDERED: NITROGLYCERIN SL TABS 0.4 MG TAB SUBLINGUAL STA (05:42)
[2023-05-30] MEDS ORDERED: ASPIRIN 81 MG PO STA (05:42)
[2023-05-30] MEDS: HEPARIN SOD,PORK IN 0.45% NACL 25,000 UNIT in 0.45% NACL 1 250ML.BAG IV SCH (05:52)
[2023-05-30] MEDS ORDERED: NITROGLYCERIN SL TABS 0.4 MG TAB SUBLINGUAL PRN (06:01)
[2023-05-30] MEDS ORDERED: NALOXONE 0.4 MG/ML 1 ML VIAL IVP PRN (08:19)
[2023-05-30] MEDS ORDERED: MAG HYDROX/AL HYDROX/SIMETH 30 ML, HYOSCYAMINE ELIXIR 10 ML PO ONE ×4 (08:19→08:30)
--- NOTE | 2023-05-30 09:31 | US ---
EXAMINATION TYPE: US upper ext pseudo RT DATE OF EXAM: 05/30/2023 COMPARISON: NONE CLINICAL INDICATION: Male, 48 years old with history of heart cath days ago R radial; h/o right radia l cath, sore right arm, bruising TECHNIQUE: right radial artery and soft tissue scan FINDINGS: No pseudoaneurysm seen on ultrasound. Right radial does have internal echoes with only min imal flow noted near brachial junction - radial occlusion IMPRESSION: No evidence for pseudoaneurysm. Radial artery occlusion suspected.
[2023-05-30] MEDS: ISOSORBIDE MONONITRATE ER 60 MG TAB.ER.24H PO SCH (09:45)
[2023-05-30] MEDS: RANOLAZINE 500 MG TAB.ER.12H PO SCH ×2 (09:45→20:39)
[2023-05-30] MEDS: THIAMINE 100 MG TAB PO SCH (09:46)
[2023-05-30] MEDS: LOSARTAN 25 MG TAB PO SCH (09:46)
[2023-05-30] MEDS: amLODIPine 2.5 MG TAB PO SCH (09:46)
[2023-05-30] MEDS: CLOPIDOGREL 75 MG TAB PO SCH (09:46)
[2023-05-30] MEDS: ACETAMINOPHEN TAB 325 MG TAB PO PRN (09:49)
[2023-05-30 12:22] LABS: INR 0.9 (<1.2); Partial Thromboplastin Time 28.6 sec (22.0-30.0); Prothrombin Time 10.4 sec (10.0-12.5)
--- NOTE | 2023-05-30 12:35 | P.HPIM ---
History of Present Illness H&P Date: 05/30/23 Chief Complaint: Chest pain * 48-year-old gentleman with past medical history significant for coronary artery disease, history of chronically occluded RCA, ischemic cardiomyopathy, nicotine dependence, alcohol use was admitted from 05/24 TILL 05/29 for chest pain. Patient was seen by cardiology during previous hospitalization and underwent cardiac catheterization and stenting of left circumflex. Patient postprocedure was started on dual antiplatelet therapy and was monitored for 24 hours. Patient antianginal therapy was optimized and started on Ranexa, aspirin, Plavix, Imdur and amlodipine. Patient went home and started having left-sided chest pain, associated with shortness of breath. Patient also complained of right upper extremity pain which was new for him. * Patient was seen early in the day on 05/29/23 and ambulated in the hallway without difficulty and was discharged home chest pain-free. * Workup initiated in ER included an EKG which showed sinus rhythm, no ST segment elevation noted initial troponin updated.Was 1.8-0 which was expected post cardiac catheterization * While in ER patient was started on IV heparin drip as a consultation for cardiology * Chest x-ray obtained negative for pneumothorax no intrathoracic process noted REVIEW OF SYSTEMS: Chest pain, shortness of breath CONSTITUTIONAL: No fever, no malaise, no fatigue. HEENT: No recent visual problems or hearing problems. Denied any sore throat. CARDIOVASCULAR: Chest pain, shortness of breath PULMONARY: Chest pain, shortness of breath GASTROINTESTINAL: No diarrhea, no nausea, no vomiting, no abdominal pain. NEUROLOGICAL: No headaches, no weakness, no numbness. HEMATOLOGICAL: Denies any bleeding or petechiae. GENITOURINARY: Denies any burning micturition, frequency, or urgency. MUSCULOSKELETAL/RHEUMATOLOGICAL: Denies any joint pain, swelling, or any muscle pain. ENDOCRINE: Denies any polyuria or polydipsia. The rest of the 14-point review of systems is negative. PHYSICAL EXAMINATION: GENERAL: The patient is alert and oriented x3, ill appearance, HEENT: Pupils are round and equally reacting to light. EOMI. CARDIOVASCULAR: S1 and S2 present. No murmurs, rubs, or gallops. PULMONARY: Chest is clear to auscultation, no wheezing or crackles. ABDOMEN: Soft, nontender, nondistended, normoactive bowel sounds. No palpable organomegaly. MUSCULOSKELETAL: No joint swelling or deformity. EXTREMITIES: No cyanosis, clubbing, or pedal edema. NEUROLOGICAL: Gross neurological examination did not reveal any focal deficits. SKIN: No rashes. Past Medical History Past Medical History: Atrial Fibrillation History of Any Multi-Drug Resistant Organisms: None Reported Past Surgical History: Heart Catheterization, Hernia Repair Past Anesthesia/Blood Transfusion Reactions: No Reported Reaction Past Psychological History: Anxiety Smoking Status: Current some day smoker Past Alcohol Use History: None Reported Past Drug Use History: Marijuana - Past Family History Father Family Medical History: Diabetes Mellitus Additional Family Medical History / Comment(s): of a heart of attack Medications and Allergies Home Medications Medication Instructions Recorded Confirmed Type Thiamine [Vitamin B-1] 100 mg PO DAILY 05/17/23 05/30/23 History Aspirin 81 mg PO DAILY #90 tab 05/20/23 05/30/23 Rx Atorvastatin [Lipitor] 40 mg PO HS #90 tab 05/20/23 05/30/23 Rx Losartan [Cozaar] 25 mg PO DAILY #90 tab 05/20/23 05/30/23 Rx Ranolazine [Ranexa] 1,000 mg PO Q12HR #60 tab 05/27/23 05/30/23 Rx Clopidogrel [Plavix] 75 mg PO DAILY 30 Days #30 tab 05/29/23 05/30/23 Rx Isosorbide Mononitrate ER [Imdur] 60 mg PO DAILY 30 Days #30 tab 05/29/23 05/30/23 Rx amLODIPine [Norvasc] 2.5 mg PO DAILY 30 Days #30 tab 05/29/23 05/30/23 Rx Allergies Allergy/AdvReac Type Severity Reaction Status Date / Time No Known Allergies Allergy Verified 05/30/23 11:33 Physical Exam Vitals: Vital Signs Temp Pulse Resp BP Pulse Ox 05/30/23 08:00 53 L 18 127/79 95 05/30/23 05:00 58 L 16 119/84 95 05/30/23 04:18 58 L 16 128/84 96 05/30/23 03:17 98.3 F 69 18 171/97 98 Intake and Output 05/29/23 05/30/23 05/30/23 22:59 06:59 14:59 Other: Weight 54.431 kg Results CBC & Chem 7: 05/30/23 03:25 05/30/23 03:25 Labs: Abnormal Lab Results - Last 24 Hours (Table) 05/30/23 05/30/23 05/30/23 Range/Units 03:25 03:25 03:25 WBC 12.3 H (3.8-10.6) k/uL RBC 4.13 L (4.30-5.90) m/uL Neutrophils # 9.7 H (1.3-7.7) k/uL Sodium 135 L (137-145) mmol/L Troponin I 1.820 H* (0.000-0.034) ng/mL Assessment and Plan Assessment: Assessment and plan * Coronary artery disease, with PCI left circumflex 05/28/23 * History of chronically occluded RCA * Recurrent angina * Hypertension * Hyperlipidemia * History of tobacco use * History of alcohol use * In regards to recurrent chest pain, optimize medical therapy dose of Imdur increased to 120 mg daily, continue Ranexa, continue amlodipine, continue aspirin, Plavix, Lipitor. Continue losartan>> not on beta maci secondary to bradycardia * In regards to hyperlipidemia continue Lipitor * In regards to hypertension continue amlodipine, losartan, Imdur * Cardiology consulted, patient on IV heparin, will monitor CBC, monitor for bleeding while on heparin * CODE STATUS is full code Time with Patient: Greater than 30
[2023-05-30] MEDS: HEPARIN SODIUM 1,000 UN/ML (10ML VL) IV PRN ×2 (12:44→20:31)
--- NOTE | 2023-05-30 12:44 | P.CRDCN ---
History of Present Illness Consult date: 05/30/23 Chief complaint: Chest pain History of present illness: The patient is a 48-year-old gentleman with coronary artery disease and status post a stenting of the left circumflex coronary artery was performed recently as well as hypertension and dyslipidemia and also he is known to have chronic total occlusion of the RCA. He presented to the hospital complaining of chest discomfort. He was discharged hospital yesterday stable medical condition with mild ongoing chest discomfort which has improved after stenting of the left circumflex coronary artery subsequently he was in his usual state of health when he was sleeping and woke up from sleep complaining of chest discomfort discomfort was in the middle of the chest as a dull kind of discomfort was no radiationassociated symptoms. He did not have any shortness of breath or dizziness or lightheadedness or any feeling of heart racing or fluttering or any presyncope or syncope. The EKG showed sinus mechanism was no ischemic ST or T- wave abnormalities the troponin came in to be abnormal but could be trending down from the prior angioplasty which was quite complex. Currently he is feel ing better and the chest discomfort is about 4/10 in intensity which has came down significantly according to him. Currently he is on dual antiplatelet therapy. He stated that he has been compliant with his medications dual antiplatelet therapy. The examination is remarkable for regular with a clear breathing sounds bilaterally and no lower extremity edema noted Assessment Chest discomfort in somebody who underwent stenting of the left circumflex is a Abnormal cardiac enzymes, with differential diagnosis of acute coronary syndrome versus enzymes are trending down and prior angioplasty Coronary artery disease as described above Hypertension Dyslipidemia Plan Continue the current medical regimen Continue heparin IV Procedure was coronary angiogram Past Medical History Past Medical History: Atrial Fibrillation History of Any Multi-Drug Resistant Organisms: None Reported Past Surgical History: Heart Catheterization, Hernia Repair Past Anesthesia/Blood Transfusion Reactions: No Reported Reaction Past Psychological History: Anxiety Smoking Status: Current some day smoker Past Alcohol Use History: None Reported Past Drug Use History: Marijuana - Past Family History Father Family Medical History: Diabetes Mellitus Additional Family Medical History / Comment(s): of a heart of attack Medications and Allergies Home Medications Medication Instructions Recorded Confirmed Type Thiamine [Vitamin B-1] 100 mg PO DAILY 05/17/23 05/30/23 History Aspirin 81 mg PO DAILY #90 tab 05/20/23 05/30/23 Rx Atorvastatin [Lipitor] 40 mg PO HS #90 tab 05/20/23 05/30/23 Rx Losartan [Cozaar] 25 mg PO DAILY #90 tab 05/20/23 05/30/23 Rx Ranolazine [Ranexa] 1,000 mg PO Q12HR #60 tab 05/27/23 05/30/23 Rx Clopidogrel [Plavix] 75 mg PO DAILY 30 Days #30 tab 05/29/23 05/30/23 Rx Isosorbide Mononitrate ER [Imdur] 60 mg PO DAILY 30 Days #30 tab 05/29/23 05/30/23 Rx amLODIPine [Norvasc] 2.5 mg PO DAILY 30 Days #30 tab 05/29/23 05/30/23 Rx Allergies Allergy/AdvReac Type Severity Reaction Status Date / Time No Known Allergies Allergy Verified 05/30/23 11:33 Physical Exam Vitals: Vital Signs Temp Pulse Resp BP Pulse Ox 05/30/23 09:47 76 18 134/95 96 05/30/23 08:00 53 L 18 127/79 95 05/30/23 05:00 58 L 16 119/84 95 05/30/23 04:18 58 L 16 128/84 96 05/30/23 03:17 98.3 F 69 18 171/97 98 Intake and Output 05/29/23 05/30/23 05/30/23 22:59 06:59 14:59 Other: Weight 54.431 kg Results 05/30/23 03:25 05/30/23 03:25 Cardiac Enzymes 05/30/23 05/30/23 05/30/23 Range/Units 03:25 03:25 09:23 AST 34 (17-59) U/L Troponin I 1.820 H* 1.700 H* (0.000-0.034) ng/mL Coagulation 05/30/23 05/30/23 Range/Units 03:25 12:05 PT 10.3 10.4 (10.0-12.5) sec APTT 24.2 28.6 (22.0-30.0) sec CBC 05/30/23 Range/Units 03:25 WBC 12.3 H (3.8-10.6) k/uL RBC 4.13 L (4.30-5.90) m/uL Hgb 13.7 (13.0-17.5) gm/dL Hct 41.0 (39.0-53.0) % Plt Count 363 (150-450) k/uL Comprehensive Metabolic Panel 05/30/23 Range/Units 03:25 Sodium 135 L (137-145) mmol/L Potassium 4.1 (3.5-5.1) mmol/L Chloride 99 (98-107) mmol/L Carbon Dioxide 24 (22-30) mmol/L BUN 17 (9-20) mg/dL Creatinine 0.75 (0.66-1.25) mg/dL Glucose 95 (74-99) mg/dL Calcium 9.7 (8.4-10.2) mg/dL AST 34 (17-59) U/L ALT 21 (4-49) U/L Alkaline Phosphatase 61 (38-126) U/L Total Protein 7.0 (6.3-8.2) g/dL Albumin 4.4 (3.5-5.0) g/dL Current Medications Generic Name Dose Route Start Last Admin Trade Name Freq PRN Reason Stop Dose Admin Acetaminophen 650 mg 05/30/23 08:19 05/30/23 09:49 Acetaminophen Tab 325 Mg Tab PO 650 mg Q6HR PRN Administration Mild Pain or Fever > 100.5 Amlodipine Besylate 2.5 mg 05/30/23 09:00 05/30/23 09:46 Amlodipine 2.5 Mg Tab PO 2.5 mg DAILY [facility] Administration Aspirin 81 mg 05/31/23 09:00 Aspirin 81 Mg PO DAILY [facility] Atorvastatin Calcium 40 mg 05/30/23 21:00 Atorvastatin 40 Mg Tab PO HS [facility] Clopidogrel Bisulfate 75 mg 05/30/23 09:00 05/30/23 09:46 Clopidogrel 75 Mg Tab PO 75 mg DAILY [facility] Administration Heparin Sodium (Porcine) 0 unit 05/30/23 05:42 Heparin Sodium 1,000 Un/Ml (10ml Vl) IV PER PROTOCOL PRN Low PTT Protocol Heparin Sodium/Sodium Chloride 250 mls @ 6.532 mls/hr 05/30/23 05:45 05/30/23 05:52 25,000 unit/ Sodium Chloride IV 12 units/kg/hr .Q24H [facility] 6.532 mls/hr Administration Protocol 12 UNITS/KG/HR Isosorbide Mononitrate 120 mg 05/30/23 09:00 05/30/23 09:45 Isosorbide Mononitrate Er 60 Mg Tab.Er.24h PO 120 mg DAILY [facility] Administration Losartan Potassium 25 mg 05/30/23 09:00 05/30/23 09:46 Losartan 25 Mg Tab PO 25 mg DAILY [facility] Administration Naloxone HCl 0.2 mg 05/30/23 08:19 Naloxone 0.4 Mg/Ml 1 Ml Vial IVP Q2M PRN Opioid Reversal Nitroglycerin 0.4 mg 05/30/23 06:01 Nitroglycerin Sl Tabs 0.4 Mg Tab SUBLINGUAL Q5M PRN Chest Pain Ranolazine 1,000 mg 05/30/23 09:00 05/30/23 09:45 Ranolazine 500 Mg Tab.Er.12h PO 1,000 mg Q12HR [facility] Administration Thiamine HCl 100 mg 05/30/23 09:00 05/30/23 09:46 Thiamine 100 Mg Tab PO 100 mg DAILY [facility] Administration Intake and Output 05/29/23 05/30/23 05/30/23 22:59 06:59 14:59 Other: Weight 54.431 kg 05/30/23 03:25 05/30/23 03:25
--- NOTE | 2023-05-30 16:05 | CA ---
Transthoracic Echo Report Name: Anil Zimmerman Age: 48 Gender: M : 1975 Exam Date: 05/30/2023 13:47 Exam Location: [facility] Ht (in): 65 Wt (lb): 120 Ordering Physician: Cabrera Lane MD ([id number]) Attending/Referring Phys: Associate Property Manager Marley Victoria RDCS Procedure CPT: Indications: ACS Cardiac Hx: Technical Quality: Good Contrast 1: Total Dose (mL): Contrast 2: Total Dose (mL): MEASUREMENTS (Male / Female) Normal Values 2D ECHO LV Diastolic Diameter PLAX 4.7 cm 4.2 - 5.9 / 3.9 - 5.3 cm LV Systolic Diameter PLAX 2.7 cm IVS Diastolic Thickness 1.1 cm 0.6 - 1.0 / 0.6 - 0.9 cm LVPW Diastolic Thickness 1.0 cm 0.6 - 1.0 / 0.6 - 0.9 cm LV Relative Wall Thickness 0.4 RV Internal Dim ED PLAX 3.4 cm LA Systolic Diameter LX 3.1 cm 3.0 - 4.0 / 2.7 - 3.8 cm LA Volume 46.7 cm??? 18 - 58 / 22 - 52 cm??? LA Volume Index 29.6 cm???/m??? 16 - 28 cm???/m??? M-MODE Aortic Root Diameter MM 3.1 cm MV E Point Septal Separation 0.4 cm AV Cusp Separation MM 2.6 cm DOPPLER AV Peak Velocity 153.7 cm/s AV Peak Gradient 9.5 mmHg MV Area PHT 2.6 cm??? Mitral E Point Velocity 72.9 cm/s Mitral A Point Velocity 69.6 cm/s Mitral E to A Ratio 1.0 MV Deceleration Time 289.3 ms MV E' Velocity 7.1 cm/s Mitral E to MV E' Ratio 10.2 FINDINGS Left Ventricle Left ventricular ejection fraction is estimated at 50-55 %. Left ventricular cavity size normal. Mildly increased septal wall thickness. Basel inferior, and basel infero septal hypokinesis Right Ventricle Mild right ventricular dilatation. Unable to estimate the right ventricular systolic pressure. Right Atrium Normal right atrial size. Left Atrium Mildly increased left atrial volume. Mitral Valve Structurally normal mitral valve. No mitral stenosis, regurgitation or prolapse. Aortic Valve Trileaflet aortic valve. No aortic valve stenosis or regurgitation. Tricuspid Valve Structurally normal tricuspid valve. No tricuspid stenosis, regurgitation or prolapse. Pulmonic Valve Structurally normal pulmonic valve. Trace pulmonic regurgitation. Pericardium No pericardial effusion. Aorta Normal size aortic root and proximal ascending aorta. CONCLUSIONS Normal LV systolic function. Basal inferior hypokinesia Previewed by: Dr. Cabrera Lane MD (Electronically Signed) Final Date: 30 May 2023 16:05
[2023-05-30] MEDS: ATORVASTATIN 40 MG TAB PO SCH (20:39)
[2023-05-31 02:33] LABS: Basophils % (A) 1 %; Eosinophils # (A) 0.2 k/uL (0-0.7); Eosinophils % (A) 2 %; HCT 37.3 % (39.0-53.0); HGB 12.5 gm/dL (13.0-17.5); Lymphocytes # (A) 1.6 k/uL (1.0-4.8); Lymphocytes % (A) 19 %; MCH 33.3 pg (25.0-35.0); MCHC 33.4 g/dL (31.0-37.0); MCV 99.5 fL (80.0-100.0); Mean Platelet Volume 7.1; Monocytes # (A) 0.7 k/uL (0-1.0); Monocytes % (A) 8 %; Neutrophils # (A) 5.6 k/uL (1.3-7.7); Neutrophils % (A) 67 %; Platelet Count 328 k/uL (150-450); RBC 3.75 m/uL (4.30-5.90); RDW 13.7 % (11.5-15.5); WBC 8.3 k/uL (3.8-10.6)
[2023-05-31] MEDS: THIAMINE 100 MG TAB PO SCH (06:14)
[2023-05-31] MEDS: CLOPIDOGREL 75 MG TAB PO SCH (06:14)
[2023-05-31] MEDS: ASPIRIN 81 MG PO SCH (06:14)
[2023-05-31] MEDS: RANOLAZINE 500 MG TAB.ER.12H PO SCH ×2 (06:15→20:17)
[2023-05-31] MEDS: LOSARTAN 25 MG TAB PO SCH (06:15)
[2023-05-31] MEDS: ISOSORBIDE MONONITRATE ER 60 MG TAB.ER.24H PO SCH (06:15)
[2023-05-31] MEDS: amLODIPine 2.5 MG TAB PO SCH (06:15)
[2023-05-31] MEDS: HEPARIN SOD,PORK IN 0.45% NACL 25,000 UNIT in 0.45% NACL 1 250ML.BAG IV SCH (07:40)
[2023-05-31] MEDS ORDERED: ASPIRIN 325 MG TAB PO SCH (09:00)
--- NOTE | 2023-05-31 11:15 | P.PN ---
Subjective Progress Note Date: 05/31/23 Principal diagnosis: Chest pain The patient is a 48-year-old gentleman with coronary artery disease and status post a stenting of the left circumflex coronary artery was performed recently as well as hypertension and dyslipidemia and also he is known to have chronic total occlusion of the RCA. He presented to the hospital complaining of chest discomfort. He was discharged hospital yesterday stable medical condition with mild ongoing chest discomfort which has improved after stenting of the left circumflex coronary artery subsequently he was in his usual state of health when he was sleeping and woke up from sleep complaining of chest discomfort discomfort was in the middle of the chest as a dull kind of discomfort was no radiationassociated symptoms. He did not have any shortness of breath or dizziness or lightheadedness or any feeling of heart racing or fluttering or any presyncope or syncope. The EKG showed sinus mechanism was no ischemic ST or T- wave abnormalities the troponin came in to be abnormal but could be trending down from the prior angioplasty which was quite complex. Currently he is feeling better and the chest discomfort is about 4/10 in intensity which has came down significantly according to him. Currently he is on dual antiplatelet therapy. He stated that he has been compliant with his medications dual antiplatelet therapy. The examination is remarkable for regular with a clear breathing sounds bilaterally and no lower extremity edema noted 05/31/2023 The patient was seen and evaluated this morning. He still having chest discom fort. I am going to pursue with a coronary angiogram later on today to assess the stent in the left circumflex coronary artery. Meanwhile continue the current medical regimen including dual antiplatelet therapy along with high intensity statin along with anti-ischemic medications. The examination overall is unremarkable Assessment Chest discomfort in somebody who underwent stenting of the left circumflex is a Abnormal cardiac enzymes, with differential diagnosis of acute coronary syndrome versus enzymes are trending down and prior angioplasty Coronary artery disease as described above Hypertension Dyslipidemia Plan Continue the current medical regimen Continue heparin IV Procedure was coronary angiogram Objective - Vital Signs Vital signs: Vital Signs Temp 97.8 F 05/31/23 07:46 Pulse 59 L 05/31/23 07:46 Resp 16 05/31/23 07:46 BP 125/66 05/31/23 07:46 Pulse Ox 96 05/31/23 07:46 FiO2 Intake & Output 05/30/23 05/31/23 05/31/23 18:59 06:59 18:59 Intake Total 44.962 123.750 42.872 Balance 44.962 123.750 42.872 Weight 54.431 kg Intake: Intake, IV Titration 44.962 123.750 42.872 Amount Heparin Sod,Pork in 0.45% 44.962 123.750 42.872 NaCl 25,000 unit In 0.45 % NaCl 1 250ml.bag @ 12 UNITS/KG/HR 6.532 mls/hr IV .Q24H [facility] Rx#: [id number] Other: Voiding Method Toilet Urinal # Voids 2 - Labs CBC & Chem 7: 05/31/23 01:37 05/30/23 03:25 Labs: Abnormal Lab Results - Last 24 Hours (Table) 05/30/23 05/30/23 05/30/23 Range/Units 09:23 12:05 18:38 RBC (4.30-5.90) m/uL Hgb (13.0-17.5) gm/dL Hct (39.0-53.0) % APTT 41.3 H (22.0-30.0) sec Troponin I 1.700 H* 1.500 H* (0.000-0.034) ng/mL 05/31/23 05/31/23 Range/Units 01:37 01:37 RBC 3.75 L (4.30-5.90) m/uL Hgb 12.5 L (13.0-17.5) gm/dL Hct 37.3 L (39.0-53.0) % APTT 52.4 H (22.0-30.0) sec Troponin I (0.000-0.034) ng/mL
--- NOTE | 2023-05-31 11:59 | P.PN ---
Subjective Progress Note Date: 05/31/23 * 48-year-old gentleman with past medical history significant for coronary artery disease, history of chronically occluded RCA, ischemic cardiomyopathy, nicotine dependence, alcohol use was admitted from 05/24 TILL 05/29 for chest pain. Patient was seen by cardiology during previous hospitalization and u nderwent cardiac catheterization and stenting of left circumflex. Patient postprocedure was started on dual antiplatelet therapy and was monitored for 24 hours. Patient antianginal therapy was optimized and started on Ranexa, aspirin, Plavix, Imdur and amlodipine. Patient went home and started having left-sided chest pain, associated with shortness of breath. Patient also complained of right upper extremity pain which was new for him. * Patient was seen early in the day on 05/29/23 and ambulated in the hallway without difficulty and was discharged home chest pain-free. * Workup initiated in ER included an EKG which showed sinus rhythm, no ST segment elevation noted initial troponin updated.Was 1.8-0 which was expected post cardiac catheterization * While in ER patient was started on IV heparin drip as a consultation for cardiology * Chest x-ray obtained negative for pneumothorax no intrathoracic process noted REVIEW OF SYSTEMS: Chest pain consistent, shortness of breath improved CONSTITUTIONAL: No fever, no malaise, no fatigue. HEENT: No recent visual problems or hearing problems. Denied any sore throat. CARDIOVASCULAR: Chest pain, shortness of breath PULMONARY: Chest pain, shortness of breath GASTROINTESTINAL: No diarrhea, no nausea, no vomiting, no abdominal pain. NEUROLOGICAL: No headaches, no weakness, no numbness. HEMATOLOGICAL: Denies any bleeding or petechiae. GENITOURINARY: Denies any burning micturition, frequency, or urgency. MUSCULOSKELETAL/RHEUMATOLOGICAL: Denies any joint pain, swelling, or any muscle pain. ENDOCRINE: Denies any polyuria or polydipsia. PHYSICAL EXAMINATION: GENERAL: The patient is alert and oriented x3, ill appearance, HEENT: Pupils are round and equally reacting to light. EOMI. CARDIOVASCULAR: S1 and S2 present. No murmurs, rubs, or gallops. , Right hand is warm, radial pulse palpable PULMONARY: Chest is clear to auscultation, no wheezing or crackles. ABDOMEN: Soft, nontender, nondistended, normoactive bowel sounds. No palpable organomegaly. MUSCULOSKELETAL: No joint swelling or deformity. EXTREMITIES: No cyanosis, clubbing, or pedal edema. NEUROLOGICAL: Gross neurological examination did not reveal any focal deficits. SKIN: No rashes. Objective - Vital Signs Vital signs: Vital Signs Temp 98.6 F 05/31/23 11:18 Pulse 64 05/31/23 11:18 Resp 16 05/31/23 11:18 BP 108/64 05/31/23 11:18 Pulse Ox 96 05/31/23 11:18 FiO2 Intake & Output 05/30/23 05/31/23 05/31/23 18:59 06:59 18:59 Intake Total 44.962 123.750 42.872 Balance 44.962 123.750 42.872 Weight 54.431 kg Intake: Intake, IV Titration 44.962 123.750 42.872 Amount Heparin Sod,Pork in 0.45% 44.962 123.750 42.872 NaCl 25,000 unit In 0.45 % NaCl 1 250ml.bag @ 12 UNITS/KG/HR 6.532 mls/hr IV .Q24H [facility] Rx#: [id number] Other: Voiding Method Toilet Urinal # Voids 2 - Labs CBC & Chem 7: 05/31/23 01:37 05/30/23 03:25 Labs: Abnormal Lab Results - Last 24 Hours (Table) 05/30/23 05/30/23 05/31/23 Range/Units 12:05 18:38 01:37 RBC 3.75 L (4.30-5.90) m/uL Hgb 12.5 L (13.0-17.5) gm/dL Hct 37.3 L (39.0-53.0) % APTT 41.3 H (22.0-30.0) sec Troponin I 1.500 H* (0.000-0.034) ng/mL 05/31/23 Range/Units 01:37 RBC (4.30-5.90) m/uL Hgb (13.0-17.5) gm/dL Hct (39.0-53.0) % APTT 52.4 H (22.0-30.0) sec Troponin I (0.000-0.034) ng/mL Assessment and Plan Assessment: Assessment and plan * Coronary artery disease, with PCI left circumflex 05/28/23 with persistent angina * Right radial artery occlusion suspected * History of chronically occluded RCA * Recurrent angina * Hypertension * Hyperlipidemia * History of tobacco use * History of alcohol use * In regards to recurrent chest pain, optimize medical therapy dose of Imdur increased to 120 mg daily, continue Ranexa, continue amlodipine, continue aspirin, Plavix, Lipitor. Continue losartan>> not on beta maci secondary to bradycardia * In regards to right radial artery occlusion patient, Doppler ultrasound right upper extremity completed, patient does have good pulse, continue patient on antiplatelet * In regards to hyperlipidemia continue Lipitor * In regards to hypertension continue amlodipine, losartan, Imdur * Cardiology consulted, patient on IV heparin, will monitor CBC, monitor for bleeding while on heparin * Appreciate input from cardiology * CODE STATUS is full code Time with Patient: Greater than 30
[2023-05-31] MEDS ORDERED: ASPIRIN 325 MG TAB PO STA (14:36)
[2023-05-31 14:38] LABS: African American GFR (CKD) >90 (>60 ml/min/1.73 sqM); Anion Gap 7 mmol/L; Blood Urea Nitrogen 18 mg/dL (9-20); Calcium 9.2 mg/dL (8.4-10.2); Carbon Dioxide 26 mmol/L (22-30); Chloride 103 mmol/L (98-107); Glucose 92 mg/dL (74-99); Non-African American GFR(CKD) >90 (>60 ml/min/1.73 sqM); Potassium 4.7 mmol/L (3.5-5.1); Sodium 136 mmol/L (137-145)
[2023-05-31] MEDS ORDERED: LIDOCAINE 1% INJ 10MG/ML (20 ML MDV) ONE (14:46)
[2023-05-31] MEDS ORDERED: VERAPAMIL 2.5 MG/ML 2 ML AMP ONE (14:46)
[2023-05-31] MEDS ORDERED: HEPARIN SODIUM 1,000 UN/ML (10ML VL) ONE ×2 (15:12→17:17)
[2023-05-31] MEDS ORDERED: IV FLUID CONTINUATION 1,000 ML IV ONE ×2 (15:13→17:15)
[2023-05-31] MEDS ORDERED: MIDAZOLAM 2 MG/2 ML VIAL IVP ONE (17:20)
[2023-05-31] MEDS ORDERED: LIDOCAINE 1% INJ 10MG/ML (20 ML MDV) SQ ONE (17:26)
[2023-05-31] MEDS ORDERED: IOPAMIDOL-370 100ML BTL INJ ONE (17:47)
--- NOTE | 2023-05-31 18:31 | P.PCN ---
Date of Procedure: 05/27/23 Operative Findings: PERCUTANEOUS CORONARY INTERVENTION Performing physician Cabrera Lane M.D. Procedure Performed: 1. Successful stenting of the LCx using 3.5 x 15 mm and 2.75 x 15 mm Xience drug-eluting stent with an excellent angiographic results. 2. Adjunctive use of intravascular imaging. 3. Ultrasound guided access of the right radial Indication: This is a 48-year-old gentleman with CAD who documented to have chronic total occlusion of the RCA and intermediate disease involving the left circumflex coronary artery. He continues to have ongoing chest discomfort in spite of maximize medical treatment and being on at least 3 anti-ischemic medications. In the light of that an FFR of the LCx was advised. Approach: Right radial artery Complications: None Procedure Discussion: After obtaining an informed consent the patient was brought to the cardiac [place] conservation laborer. The right radial artery was cannulated using puncture technique under ultrasound guidance to micropuncture wire passed easily then I placed a 6-Upper Sor[place] 11 cm sheath. I gave the patient 2 mg of verapamil intra-arterial and subsequently heparin IV was initiated was continuous ACT monitoring. Initially we decided to do one FFR of the left circumflex but after the first angiogram the lesion in the left circumflex appears to be extremely concerning and more than 70-80% so we decided to fix the lesion. I did wire the left circumflex using a run through wire. The first run through wire was advanced toward OM1 and the second run-through wire was advanced toward the AV groove left circumflex coronary artery. Predilatation was performed using 3.0 x 12 mm balloon after intravascular ultrasound was performed and showed a diameter around a 3 mm. After that I advanced a 3.5 x 15 mm stent where the stent was positioned under fluoroscopy guidance and deployed under its nominal pressure. The following angiogram showed no flow in the left circumflex with a concern about distal edge dissection. I balloon the distal edge using 2.5 x 12 mm balloon with caodaism of the flow in the left circumflex coronary artery with a decided to place a short stent distally. At that point I advanced a 2.75 x 15 mm another stent where the second stent was deployed with about 2 mm overlap between the first and second stent. Final angiogram was performed and showed good flow in the left circumflex with a good angiographic results and the procedure was completed was no complication Postprocedure Management: 1. Dual antiplatelet therapy 2. Aggressive cholesterol can to 3. Risk factors modification
--- NOTE | 2023-05-31 18:36 | P.PCN ---
Date of Procedure: 05/31/23 Operative Findings: CARDIAC CATHETERIZATION PERFORMING PHYSICIAN: Cabrera Lane MD, RPVI PROCEDURE PERFORMED: 1. Selective right and left coronary angiogram 2. Left heart catheterization 3. Ultrasound-guided access of the right common femoral artery and selective right common femoral artery and INDICATION: This is a 48-year-old gentleman who underwent recently stenting of the left circumflex coronary artery. He was discharged home in stable medical condition but presented to the emergency department again complaining of chest discomfort. His troponin was abnormal and and known to be tapering down from the PCI procedure or new MT. In the light of ongoing chest discomfort he was brought to undergo a heart catheterization. COMPLICATION: None APPROACH: Right common femoral artery LEVEL OF SEDATION: Moderate with sedation in length of 12 minutes PROCEDURE DESCRIPTION: After obtaining an informed consent, the patient was brought to cardiac laborer car barn. Local anesthesia was performed using lidocaine subcutaneously. The right common femoral artery was cannulated using Seldinger technique, the guidewire passed easily, following that we advanced a 6 Albanian sheath dilator assembly, the wire and dilator were removed and sheath was flushed. Selective right and left coronary angiogram using a 6-Albanian JR4 and JL catheters. Following that we did left heart catheterization using 6-Albanian pigtail catheter. The procedure was completed there was no complication. SELECTIVE CORONARY ANGIOGRAM: The right coronary artery: Is chronically occluded in the midportion. This is known finding from before Left main: Is angiographically normal. Bifurcates into an LCx and LAD The left circumflex: Large caliber vessel and and on dominant vessel. The LCx proximally gives rise into a large limb which works as a ramus intermedius appears to be angiographically normal. The circumflex proximally is a stented and the stent is patent. The circumflex gives rises into the second and third obtuse marginal branches and both appeared to be patent. The circumflex continue in the AV groove as a moderate caliber vessel The left anterior descending artery: The LAD is a large caliber vessel and appears to be angiographically normal. Gives rise into a diagonal branch which seems to be normal HEMODYNAMICS: LVEDP was about 12 mmHg was no significant gradient across aortic CONCLUSION: 1. Patent stent in the left circumflex coronary artery 2. Chronic total occlusion of the 3. Normal left-sided filling pressure POSTPROCEDURE MANAGEMENT: Medical treatment
[2023-05-31] MEDS: ATORVASTATIN 40 MG TAB PO SCH (20:17)
[2023-06-01] MEDS: ACETAMINOPHEN TAB 325 MG TAB PO PRN ×2 (04:17→11:49)
[2023-06-01 07:14] LABS: Chol/HDL Ratio 2.27 Ratio; LDL Cholesterol,Calculated 79.6 mg/dL (0.0-131.0); VLDL Calculation 8.84 mg/dL (5.00-40.00)
[2023-06-01] MEDS: ASPIRIN 81 MG PO SCH (08:28)
[2023-06-01] MEDS: amLODIPine 2.5 MG TAB PO SCH (08:28)
[2023-06-01] MEDS: LOSARTAN 25 MG TAB PO SCH (08:28)
[2023-06-01] MEDS: RANOLAZINE 500 MG TAB.ER.12H PO SCH (08:28)
[2023-06-01] MEDS: THIAMINE 100 MG TAB PO SCH (08:28)
[2023-06-01] MEDS: ISOSORBIDE MONONITRATE ER 60 MG TAB.ER.24H PO SCH (08:28)
[2023-06-01] MEDS: CLOPIDOGREL 75 MG TAB PO SCH (08:28)
[2023-06-01 09:48] LABS: HGB 12.1 gm/dL (13.0-17.5); MCHC 31.9 g/dL (31.0-37.0); MCV 100.3 fL (80.0-100.0); Macrocytosis Slight; Mean Platelet Volume 7.5; Platelet Count 358 k/uL (150-450); RBC 3.79 m/uL (4.30-5.90); RDW 14.1 % (11.5-15.5); WBC 7.8 k/uL (3.8-10.6)
[2023-06-01 11:58] VITALS: BP 130/81; PULSE 63; RESP 14; TEMP 98.7
--- NOTE | 2023-06-01 22:11 | PN ---
PROGRESS NOTE SUBJECTIVE: A 48-year-old gentleman, who recently underwent cardiac catheterization and angioplasty of [place] circumflex coronary artery and was readmitted with chest pain and underwent cardiac catheterization by Dr. Lane that revealed a patent stent within the left circumflex coronary artery and chronic total occlusion of the right coronary artery. This morning, he is feeling better and is free of symptoms. Denies any chest pain. OBJECTIVE: VITAL SIGNS: Stable. CHEST: Reveals good air entry bilaterally. HEART: Reveals first and second heart sounds. No gallop. No murmur. No rub. ABDOMEN: Soft, nontender. EXTREMITIES: Did not reveal any edema. Peripheral pulses are felt. DIAGNOSTIC STUDIES: An echocardiogram on this admission revealed normal LV systolic function with hypokinetic inferior wall, which remains unchanged. Troponins are elevated, probably related to recent coronary intervention. ASSESSMENT: Chest pain, status post cardiac cath with patent stent within the circumflex coronary artery. Elevated troponin, could be related to recent coronary intervention. PLAN: The patient is doing well. He can be discharged home on, 1. Aspirin. 2. Lipitor. 3. Plavix. 4. Norvasc. 5. Imdur. 6. Cozaar. 7. Ranexa. that he is on. Follow up in our office. MMODL / IJN: [id number] /
--- NOTE | 2023-06-03 05:49 | P.DS ---
Providers Date of admission: 05/30/23 06:02 Expected date of discharge: 06/01/23 Attending physician: Nigel Doherty MD Consults: 05/30/23 06:02 Consult Physician Urgent Consulting Provider: Cabrera Lane Consult Reason/Comments: elevated troponin Do you want consulting provider notified?: Yes Primary care physician: Stated None Hospital Course: Final diagnosis Coronary artery disease, with PCI left circumflex 05/28/23 with persistent angina Right radial artery occlusion suspected History of chronically occluded RCA Recurrent angina Hypertension Hyperlipidemia History of tobacco use History of alcohol use Discharge disposition Patient is being discharged in a stable condition with guarded prognosis to home . Patient will follow-up with Dr. Pa Sanches to establish in the outpatient setting upon discharge. Patient is to continue with current medications as mentioned below close outpatient follow-up with cardiology as scheduled. Total time taken is greater than 35 minutes. Hospital course This is a 48-year-old male who was recently admitted for chest pain with increased shortness of breath being closely monitored. Cardiology evaluated and patient is recent cardiac catheterization with stenting to the left circumflex. Adjustments to medications being made by cardiology and has cleared the patient for discharge home with close outpatient follow-up. Discussed complete tobacco cessation as well as alcohol use and needs to establish with primary care provider. Please refer to cardiology notes for further HPI. Currently no reports of chest pain, shortness of breath, or palpitations. Patient is afebrile. No reports of nausea or vomiting and patient is tolerating diet. Patient will be discharged home today. Guarded prognosis and high risk for readmission due to noncompliance and patient has had very frequent ER visits and hospitalizations most recently. Physical exam: Gen: This is a 48-year-old male who is awake, alert and oriented 3, thin built, appears older than stated age HEENT: Head is atraumatic, normocephalic. Pupils equal, round. Sclerae is anicteric. NECK: Supple. No JVD. No lymphadenopathy. No thyromegaly. LUNGS: Clear to auscultation. No wheezes or rhonchi. No intercostal retractions. HEART: Regular rate and rhythm. No murmur. ABDOMEN: Soft. Bowel sounds are present. No masses. No tenderness. EXTREMITIES: No pedal edema. No calf tenderness. NEUROLOGICAL: Patient is awake, alert and oriented x3. Cranial nerves 2 through 12 are grossly intact. Please refer to medication reconciliation sheet for a list of medications. The impression and plan of care has been dictated by Tiffanie Castañeda, Nurse Practitioner as directed. Dr. Myron MD I have performed a history and examination and MDM of this patient, discussed the same with the dictator, and agree with the dictator's assessment and plan as written ,documented as a scribe. Based on total visit time, I have performed more than 50% of the visit. Patient Condition at Discharge: Good Plan - Discharge Summary New Discharge Prescriptions: New Nitroglycerin Sl Tabs [Nitrostat] 0.4 mg SUBLINGUAL Q5M PRN #30 tab PRN Reason: Chest Pain Isosorbide Mononitrate ER [Imdur] 120 mg PO DAILY 30 Days #60 tab Acetaminophen Tab [Tylenol] 650 mg PO Q6HR PRN tab PRN Reason: Mild Pain Or Fever > 100.5 Continue Aspirin 81 mg PO DAILY #90 tab Losartan [Cozaar] 25 mg PO DAILY #90 tab Atorvastatin [Lipitor] 40 mg PO HS #90 tab Ranolazine [Ranexa] 1,000 mg PO Q12HR #60 tab amLODIPine [Norvasc] 2.5 mg PO DAILY 30 Days #30 tab Clopidogrel [Plavix] 75 mg PO DAILY 30 Days #30 tab Thiamine [Vitamin B-1] 100 mg PO DAILY Discontinued Isosorbide Mononitrate ER [Imdur] 60 mg PO DAILY 30 Days #30 tab Discharge Medication List Thiamine [Vitamin B-1] 100 mg PO DAILY 05/17/23 [History] Aspirin 81 mg PO DAILY #90 tab 05/20/23 [Rx] Atorvastatin [Lipitor] 40 mg PO HS #90 tab 05/20/23 [Rx] Losartan [Cozaar] 25 mg PO DAILY #90 tab 05/20/23 [Rx] Ranolazine [Ranexa] 1,000 mg PO Q12HR #60 tab 05/27/23 [Rx] Clopidogrel [Plavix] 75 mg PO DAILY 30 Days #30 tab 05/29/23 [Rx] amLODIPine [Norvasc] 2.5 mg PO DAILY 30 Days #30 tab 05/29/23 [Rx] Acetaminophen Tab [Tylenol] 650 mg PO Q6HR PRN tab 06/01/23 [Rx] Isosorbide Mononitrate ER [Imdur] 120 mg PO DAILY 30 Days #60 tab 06/01/23 [Rx] Nitroglycerin Sl Tabs [Nitrostat] 0.4 mg SUBLINGUAL Q5M PRN #30 tab 06/01/23 [Rx] Follow up Appointment(s)/Referral(s): Cabrera Lane MD [STAFF PHYSICIAN] - 1 Week Caren Barrett MD [STAFF PHYSICIAN] - 1 Week None,Stated [Primary Care Provider] - 1-2 days Activity/Diet/Wound Care/Special Instructions: Activity Limited until follow-up Follow-up with primary care provider on discharge Continue taking medications as prescribed Follow-up cardiology outpatient Discharge Disposition: HOME SELF-CARE
== END 2023-06-01 19:01 | disposition home or self-care (01) | DRG 322 ==
LOC: EC 03:13 → 3SCARD 06:02 → OBSVTOIN 06:02 → 3SCARD 16:27
PROVIDERS: ADMIT Internal Medicine; ATTEND Internal Medicine
PROC: 4A033BC Measurement of Arterial Pressure, Coronary, Percutaneous Approach (ICD-10-PCS; principal; 2023-05-31 14:34)
PROC: B2111ZZ Fluoroscopy of Multiple Coronary Arteries using Low Osmolar Contrast (ICD-10-PCS; principal; 2023-05-31 14:34)
PROC: 027035Z Dilation of Coronary Artery, One Artery with Two Drug-eluting Intraluminal Devices, Percutaneous Approach (ICD-10-PCS; principal; 2023-05-31 14:34)
PROC: 4A023N7 Measurement of Cardiac Sampling and Pressure, Left Heart, Percutaneous Approach (ICD-10-PCS; principal; 2023-05-31 14:34)
DX: I25.112 Atherosclerotic heart disease of native coronary artery with refractory angina pectoris (principal); I25.82 Chronic total occlusion of coronary artery; E78.5 Hyperlipidemia, unspecified; I25.5 Ischemic cardiomyopathy; I48.91 Unspecified atrial fibrillation; I70.208 Unspecified atherosclerosis of native arteries of extremities, other extremity; Z28.310 Unvaccinated for COVID-19; R00.1 Bradycardia, unspecified; I10 Essential (primary) hypertension; F10.90 Alcohol use, unspecified, uncomplicated; R77.8 Other specified abnormalities of plasma proteins; F41.9 Anxiety disorder, unspecified; F17.200 Nicotine dependence, unspecified, uncomplicated; Z71.6 Tobacco abuse counseling; Z79.82 Long term (current) use of aspirin; Z79.02 Long term (current) use of antithrombotics/antiplatelets; Z79.899 Other long term (current) drug therapy; Z82.49 Family history of ischemic heart disease and other diseases of the circulatory system
CPT/HCPCS: 36415; 71046; 76937; 80048; 80053; 80061; 82150; 83690; 83735; 83880; 84484; 85025; 85027; 85610; 85730; 93005; 93306; 93458; 94760; 96365; 96366; 99291